=== PATIENT | male | born 1950 | race Caucasian/White ===

== ENCOUNTER 2016-11-14 09:20 | Emergency (ER) | payer OTHER ==
[~2016-11-14] VITALS: Ht 182.9 cm; Wt 87.9 kg
[~2016-11-14 09:20] MED LIST: ASPI81TA28 PO; CLON0.5T3 PO; HYDR-5688 PO; MULT-662 PO; PANT40TA PO
[2016-11-14 09:35] VITALS: TEMP 36.4; Ht 182.9 cm; Wt 87.9 kg
[2016-11-14 10:14] VITALS: O2SAT 99
[2016-11-14 10:21] LABS: HEMATOCRIT 51.2 % (42-52); MEAN CORPUSCULAR HEMOGLOBIN 30.6 pg (25-34); MEAN CORPUSCULAR HGB CONC 34.8 g/dl (32-36); MEAN PLATELET VOLUME 10.8 fL (7.4-10.4); PLATELET COUNT 216 K/uL (130-400); RED BLOOD COUNT 5.82 M/uL (4.7-6.1)
[2016-11-14 10:26] LABS: PARTIAL THROMBOPLASTIN RATIO 1.2; PROTHROMBIN TIME (PATIENT) 10.8 SECONDS (9.0-12.0)
[2016-11-14 10:28] LABS: BUN/CREATININE RATIO 14.6 (10-20); CALCIUM 9.1 mg/dl (8.5-10.1); POTASSIUM 4.3 mmol/L (3.5-5.1)
[2016-11-14 10:32] LABS: CKMB/CK RATIO 1.2 (0-3.0)
--- NOTE | 2016-11-14 10:51 | DIAGNOSTIC IMAGING REPORT ---
CHEST ONE VIEW PORTABLE CLINICAL HISTORY: Chest pain. COMPARISON STUDY: Chest radiograph November 10, 2016. FINDINGS: Lung volumes are normal. No pneumothorax or pleural effusion is present. Cardiomediastinal silhouette is normal. There is no evidence of pulmonary edema. IMPRESSION: No acute cardiopulmonary findings. Electronically signed by: Charlie Obrien M.D. 11/14/2016 10:49 AM
[2016-11-14] MEDS ORDERED: HYDROmorphone INJ 2 MG/ML SYR/VIAL IV STA (11:10)
[2016-11-14] MEDS ORDERED: OPTIRAY 320 IV PRN (11:15)
[2016-11-14 11:58] VITALS: BP 123/76
--- NOTE | 2016-11-14 12:09 | DIAGNOSTIC IMAGING REPORT ---
CT ANGIOGRAM OF THE CHEST CLINICAL HISTORY: Atypical chest pain. Suspected pulmonary embolism. COMPARISON STUDY: 01/30/2016 , dissection study dated 10/10/2016. TECHNIQUE: Following the IV administration of 92 mL of Optiray-320, CT angiogram of the thorax was performed from the thoracic inlet to the lung bases utilizing the pulmonary embolus protocol. Images are reviewed in the axial, sagittal, and coronal planes. IV contrast was administered without complication. MIP imaging was performed. CT DOSE: 562.07 mGycm FINDINGS: There is a mildly enlarged precarinal lymph node measuring 13 mm in size. There are no pathologically enlarged axillary lymph nodes. There is no pathologic hilar lymphadenopathy. Additional There was no evidence of thoracic aortic dilatation. There were no pulmonary artery filling defects to indicate acute pulmonary embolism. No pleural effusions are visualized. There are dependent groundglass opacities, likely atelectatic. There are tiny apical blebs. There is a 3 mm left upper lobe pulmonary nodule as visualized in image #[id number]. This remains unchanged from the prior October 10, 2016 study. IMPRESSION: 1. Stable mild mediastinal lymphadenopathy 2. No CT evidence of acute pulmonary embolism 3. Dependent groundglass pulmonary opacities, likely atelectatic. 4. Stable 3 mm left upper lobe pulmonary nodule Electronically signed by: Hans Morin M.D. 11/14/2016 12:07 PM
[2016-11-14 12:20] VITALS: PULSE 57; O2SAT 96
--- NOTE | 2016-11-14 12:22 | EMERGENCY ROOM VISIT NOTE ---
History Report prepared by Irina: Kamilah Ruano Under the Supervision of: Dr. J Carlos Thompson D.O. First contact with patient: 10:39 Chief Complaint: CHEST PAIN Stated Complaint: CHEST PAIN Nursing Triage Summary: hx dizzy and syncopal episodes x 1 month, seen in er prior to , pt had 2 syncopal episodes today while lying down, L chest pain radiating to L neck and LUE is reproducible, took 1 asa then ems gave him 3 more 81 mg asa, 4mg of zofran and 3 nitro without relief, morphine 4mg given with moderate relief, pt states he has 70% blockage of L carotid artery History of Present Illness The patient is a 66 year old male who presents to the Emergency Room with complaints of constant left-sided chest pain that started this morning. He rates his discomfort as a 9/10 in severity. The patient came to the ED via ambulance. He was given 3 81 mg aspirin en route since he took one baby aspirin this morning. He was also given 4 mg of Zofran and 3 nitro en route without any relief. The patient was also given 4 mg of Morphine Sulfate en route with moderate relief. He states that he woke up this morning at 0530 and drank coffee. He states that the longer he was up, the worse he felt. He then began to feel dizzy to the point of being unable to walk straight. He then developed the chest pain and it radiated into the left side of his neck and the back of his head. He decided to lie down and then experienced syncope. He is unsure of how long the syncope lasted but he estimated that it lasted about two minutes. He tried to get up afterward and experienced similar symptoms so he laid back down. He experienced another episode of syncope and then called the ambulance. He adds that the dizziness has been ongoing for the last month. Additionally, the patient states that he has 3 stents in his heart from an RI in 2007. He also states that his left carotid is 70% blocked and it hasn't been checked for almost 8 months now. Source of History: patient Onset: this morning Position: chest (left) Timing: constant Associated Symptoms: + LOC (2 episodes of syncope), + headache (back of head ), + neck pain (left sided) Note: dizziness Review of Systems See HPI for pertinent positives & negatives. A total of 10 systems reviewed and were otherwise negative. Past Medical & Surgical Medical Problems: (1) Abdominal aneurysm (2) Abscess (3) Acute bronchitis (4) CALCULUS OF KIDNEY (5) Clostridium difficile colitis (6) Colostomy (7) Coronary artery disease (8) CVA (cerebral vascular accident) (9) Diverticulitis of colon (10) Diverticulosis of sigmoid colon (11) Enteritis (12) GI bleed (13) Kidney stone (14) Myocardial infarction (15) Partial resection of colon (16) Pneumonia (17) Right arm weakness (18) sigmoid resection (19) Stoma (20) Urinary retention Surgical Problems: (1) History of appendectomy (2) History of colectomy Family History Hypertension Social History Smoking Status: Current Every Day Smoker Alcohol Use: none Drug Use: none Marital Status: Housing Status: lives with significant other Occupation Status: retired Current/Historical Medications Scheduled Aspirin (Aspirin Ec), 81 MG PO DAILY Multiple Vitamins W/ Minerals (Mens 50+ Advanced), 1 CAP PO DAILY Scheduled PRN Clonazepam (Klonopin), 0.5 MG PO DAILY PRN for RESTLESS LEGS Hydrocodone/Acetaminophen 5MG/325MG ([place] 5MG/325MG), 1 TAB PO Q6 PRN for Pain Allergies Coded Allergies: Penicillins (Verified Allergy, Severe, SEVERE SWELLING, anaphylaxis, ) Metronidazole (Verified Allergy, Intermediate, swelling, 11/14/16) Physical Exam Vital Signs Date Time Temp Pulse Resp B/P Pulse Ox O2 Delivery O2 Flow Rate FiO2 11/14/16 12:20 57 19 96 11/14/16 11:58 123/76 11/14/16 11:50 52 18 97 11/14/16 11:29 125/77 11/14/16 11:20 54 15 98 11/14/16 10:58 124/77 11/14/16 10:50 59 6 98 11/14/16 10:29 110/62 11/14/16 10:20 61 12 98 11/14/16 10:14 99 Nasal Cannula 2.0 11/14/16 10:07 60 118/71 99 11/14/16 10:03 118/71 11/14/16 10:01 145/130 11/14/16 09:50 65 21 93 11/14/16 09:44 65 11/14/16 09:35 36.4 64 18 107/67 95 Room Air 11/14/16 09:35 95 Room Air 11/14/16 09:28 92 Room Air 11/14/16 09:27 107/67 Physical Exam CONSTITUTIONAL/VITAL SIGNS: Reviewed / noted above. GENERAL: Non-toxic in appearance. INTEGUMENTARY: Warm, dry, and [place]. HEAD: Normocephalic. EYES: without scleral icterus or trauma. ENT/OROPHARYNX: clear and moist. LYMPHADENOPATHY/NECK: Is supple without lymphadenopathy or meningismus. RESPIRATORY: Lungs clear and equal. CARDIOVASCULAR: Regular rate and rhythm. GI/ABDOMEN: Soft and nontender. No organomegaly or pulsatile mass. No rebound or guarding. Normal bowel sounds. EXTREMITIES: Warm and well perfused. BACK: No CVA tenderness. NEUROLOGICAL: Intact without focal deficits. PSYCHIATRIC: normal affect. MUSCULOSKELETAL: Normally developed with good muscle tone. Medical Decision & Procedures ER Provider Diagnostic Interpretation: X ray results and stated below per my interpretation and radiologist interpretation. Other radiology results and stated below per my review and radiologist interpretation: CHEST ONE VIEW PORTABLE CLINICAL HISTORY: Chest pain. COMPARISON STUDY: Chest radiograph November 10, 2016. FINDINGS: Lung volumes are normal. No pneumothorax or pleural effusion is present. Cardiomediastinal silhouette is normal. There is no evidence of pulmonary edema. IMPRESSION: No acute cardiopulmonary findings. Electronically signed by: Charlie Obrien M.D. 11/14/2016 10:[address] ANGIOGRAM OF THE CHEST CLINICAL HISTORY: Atypical chest pain. Suspected pulmonary embolism. COMPARISON STUDY: 01/30/2016 , dissection study dated 10/10/2016. TECHNIQUE: Following the IV administration of 92 mL of Optiray-320, CT angiogram of the thorax was performed from the thoracic inlet to the lung bases utilizing the pulmonary embolus protocol. Images are reviewed in the axial, sagittal, and coronal planes. IV contrast was administered without complication. MIP imaging was performed. CT DOSE: 562.07 mGycm FINDINGS: There is a mildly enlarged precarinal lymph node measuring 13 mm in size. There are no pathologically enlarged axillary lymph nodes. There is no pathologic hilar lymphadenopathy. Additional There was no evidence of thoracic aortic dilatation. There were no pulmonary artery filling defects to indicate acute pulmonary embolism. No pleural effusions are visualized. There are dependent groundglass opacities, likely atelectatic. There are tiny apical blebs. There is a 3 mm left upper lobe pulmonary nodule as visualized in image #[id number]. This remains unchanged from the prior October 10, 2016 study. IMPRESSION: 1. Stable mild mediastinal lymphadenopathy 2. No CT evidence of acute pulmonary embolism 3. Dependent groundglass pulmonary opacities, likely atelectatic. 4. Stable 3 mm left upper lobe pulmonary nodule Electronically signed by: Hans Morin M.D. 11/14/2016 12:07 PM Laboratory Results 11/14/16 08:51 11/14/16 08:51 Test 11/14/16 08:51 11/14/16 10:14 Red Blood Count 5.82 M/uL (4.7-6.1) Mean Corpuscular Volume 88.0 fL (80-100) Mean Corpuscular Hemoglobin 30.6 pg (25-34) Mean Corpuscular Hemoglobin Concent 34.8 g/dl (32-36) RDW Standard Deviation 42.2 fL (36.4-46.3) RDW Coefficient of Variation 13.1 % (11.5-14.5) Mean Platelet Volume 10.8 fL (7.4-10.4) Prothrombin Time 10.8 SECONDS (9.0-12.0) Prothromb Time International Ratio 1.0 (0.9-1.1) Activated Partial Thromboplast Time 31.7 SECONDS (21.0-31.0) Partial Thromboplastin Ratio 1.2 D-Dimer 850 ug/L FEU (0-500) Anion Gap 8.0 mmol/L (3-11) Est Creatinine Clear Calc Drug Dose 79.8 ml/min Estimated GFR () 90.5 Estimated GFR (Non- 78.1 BUN/Creatinine Ratio 14.6 (10-20) Calcium Level 9.1 mg/dl (8.5-10.1) Total Bilirubin 0.3 mg/dl (0.2-1) Aspartate Amino Transf (AST/SGOT) 18 U/L (15-37) Alanine Aminotransferase (ALT/SGPT) 33 U/L (12-78) Alkaline Phosphatase 84 U/L (45-117) Total Creatine Kinase 43 U/L (39-308) Creatine Kinase MB 0.5 ng/ml (0.5-3.6) Creatine Kinase MB Ratio 1.2 (0-3.0) Total Protein 7.7 gm/dl (6.4-8.2) Albumin 3.8 gm/dl (3.4-5.0) Globulin 3.9 gm/dl (2.5-4.0) Albumin/Globulin Ratio 1.0 (0.9-2) Bedside Troponin I 0.000 ng/ml (0-0.045) Laboratory results as stated above per my review. Medications Administered Medications (Trade) Dose Ordered Sig/Alan Route Start Time Stop Time Status Last Admin Dose Admin Hydromorphone HCl (Dilaudid Inj) 2 mg NOW STAT IV 11/14/16 11:10 11/14/16 11:12 DC 11/14/16 11:28 2 MG ECG Indication: chest pain Rate (beats per minute): 71 Rhythm: normal sinus Findings: no acute ischemic change, no ectopy ED Course 1055: Previous medical records were reviewed. The patient was evaluated in room A12. A complete history and physical examination was performed. 1110: Ordered Dilaudid 2 mg IV 1223: On reevaluation, the patient is doing well. I discussed the results and findings with the patient. He verbalized agreement of the treatment plan. He was discharged home. Medical Decision Differential includes acute myocardial infarction, acute coronary syndrome, myocarditis, pericarditis, pericardial effusions /tamponad, esophageal perforation, thoracic aortic dissection, pulmonary embolism, pneumonia, pneumothorax, pancreatitis, shingles, acute cholecystitis, perforated abdominal viscus. This is a 66-year-old male who presents to the ED with a chief complaint of chest pain. Further details listed above. The patient's vital signs are normal. His physical exam was normal. He is afebrile. CBC is normal. Complete metabolic panel was normal. Troponin is negative. D-dimer was elevated. CT scan of the chest did not show acute disease. A chest x-ray was negative for acute disease. EKG shows a normal sinus rhythm without ischemic changes. The patient was told the results of the test. He is felt to be stable for discharge. He was given 2 mg of IV Dilaudid for pain. Impression Primary Impression: Non-cardiac chest pain Scribe Attestation The scribe's documentation has been prepared under my direction and personally reviewed by me in its entirety. I confirm that the note above accurately reflects all work, treatment, procedures, and medical decision making performed by me. Departure Information Dispostion Home / Self-Care Referrals Mariah Lewis C.R.N.P (PCP) Forms HOME CARE DOCUMENTATION FORM, IMPORTANT VISIT INFORMATION Patient Instructions A Signature Page, Chest Pain - [facility], [facility] Additional Instructions Follow-up with your doctor for further care and evaluation in 1-2 days. Return to the emergency department for worsening or new symptoms or any concerns. You have been examined and treated today on an emergency basis only. This is not a substitute for, or an effort to provide, complete comprehensive medical care. It is impossible to recognize and treat all injuries or illnesses in a single emergency department visit. It is therefore important that you follow up closely with your doctor. Call as soon as possible for an appointment.
[2016-12-16] MEDS ORDERED: NTRSLP4 SL (10:16)
[2016-12-16] MEDS ORDERED: ULT50X PO (10:16)
[2016-12-16] MEDS ORDERED: OMEP40CA41 PO (10:16)
[2016-12-16] MEDS ORDERED: LSN25 PO (10:16)
[2016-12-16] MEDS ORDERED: PLV75 PO (10:16)
[2016-12-16] MEDS ORDERED: ERGO500037 PO (10:16)
[2016-12-16] MEDS ORDERED: LDDP5 TD (10:16)
[2016-12-16] MEDS ORDERED: SM350 PO (10:16)
[2016-12-16] MEDS ORDERED: ROSU40TA PO (10:16)
[2017-05-26] MEDS ORDERED: RXC5 PO (11:37)
== END 2016-11-14 12:34 | disposition home or self-care (01) ==
LOC: EDBD 09:20 → C.EDA 09:21
DX: R07.89 Other chest pain (principal); R51 Headache; M54.2 Cervicalgia; R55 Syncope and collapse; I25.10 Atherosclerotic heart disease of native coronary artery without angina pectoris; I25.2 Old myocardial infarction; Z86.73 Personal history of transient ischemic attack (TIA), and cerebral infarction without residual deficits; F17.210 Nicotine dependence, cigarettes, uncomplicated; Z79.82 Long term (current) use of aspirin

== ENCOUNTER 2016-11-21 14:31 | Emergency (ER) | payer OTHER ==
[~2016-11-21] VITALS: Ht 182.9 cm; Wt 86.5 kg
[~2016-11-21 14:31] MED LIST changes: -ERGO500037 PO; -FLUO10CA48 PO; -GABA-112 PO; -LDDP5 TD; -LSN25 PO; -NTRSLP4 SL; -OMEP40CA41 PO; -OXYC1TAB3 PO; -PLV75 PO; -PRED20TA PO; -ROSU40TA PO; -RXC5 PO; -SM350 PO; -ULT50X PO
[2016-11-21 14:34] VITALS: TEMP 36.8; Ht 182.9 cm; Wt 86.5 kg
[2016-11-21] MEDS ORDERED: SODIUM CHLORIDE 0.9% 1000ML 1,000 ML IV SCH (14:39)
[2016-11-21 14:52] VITALS: O2SAT 97
[2016-11-21 14:54] LABS: BASO % 0.4 %; BASO ABS # 0.04 K/uL (0-0.2); COMPLETE YES; EOS % 1.4 %; HEMATOCRIT 47.3 % (42-52); IG% 0.4 %; LYMPH % 16.8 %; LYMPH ABS # 1.92 K/uL (1.2-3.4); MEAN CELL VOLUME 85.5 fL (80-100); MEAN CORPUSCULAR HEMOGLOBIN 29.5 pg (25-34); MEAN CORPUSCULAR HGB CONC 34.5 g/dl (32-36); MEAN PLATELET VOLUME 10.5 fL (7.4-10.4); MONO % 5.5 %; NEUT % 75.5 %; PLATELET COUNT 191 K/uL (130-400); RED BLOOD COUNT 5.53 M/uL (4.7-6.1)
--- NOTE | 2016-11-21 14:56 | DIAGNOSTIC IMAGING REPORT ---
CT OF THE HEAD WITHOUT CONTRAST CLINICAL HISTORY: Stroke symptoms. Left-sided weakness. COMPARISON STUDY: Head CT November 10, 2016. CT DOSE: 788.63 mGycm TECHNIQUE: Helical axial images of the head were obtained without IV contrast. Automated exposure control was utilized for the study. FINDINGS: No acute intracranial hemorrhage, midline shift or mass effect is present. Brain volume is normal. Ventricular system is normal. The basilar cisterns are patent. There are no extra-axial collections. [place]-white differentiation is maintained. There are no findings to suggest acute dural sinus thrombosis or acute territorial infarct. There is no calvarial fracture. Visualized portions of the sinuses and mastoid air cells are clear. IMPRESSION: No acute intracranial findings. Electronically signed by: Charlie Obrien M.D. 11/21/2016 2:54 PM Dictated Date/Time: 11/21/2016 2:52 PM
--- NOTE | 2016-11-21 15:00 | EMERGENCY ROOM VISIT NOTE ---
History Report prepared by Irina: Martha Palmer Under the Supervision of: Dr. Brando Vieyra M.D. First contact with patient: 14:35 Chief Complaint: STROKE SYMPTOMS Stated Complaint: STROKE SYMPTOMS History of Present Illness The patient is a 66 year old male who presents to the Emergency Room with complaints of a sudden onset of shooting pain to his posterior left neck, radiating down his left arm, while getting an ultrasound just prior to arrival ( 1409). Currently, he rates his discomfort as an 8/10 which increases with attempts of lifting his left arm. 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 During the procedure, patient was instructed to turn his head to the left side when he suddenly contracted a pain to his left neck, radiating down his left arm. After morena the pain, patient developed numbness/weakness to his left arm and leg as he was only able to lift them a few inches off of the bed, and he was unable to grasp with his left hand. Patient does note that he suffered a syncopal episode on November 06, and since that time he has been experiencing intermittent dizzy spells, but he denies neck pain or unilateral weakness until the time of onset today. Patient does note slight blurriness to his left eye, but he denies headache, facial droop, slurred speech, or difficulty swallowing. He also denies fevers, chills, chest pain, shortness of breath, abdominal pain, nausea, vomiting, or diarrhea. Source of History: patient Onset: 1409 Position: neck (left) Symptom Intensity: 8/10 Quality: other (shooting) Timing: other (sudden onset) Modifying Factors (Worsening): other (turning neck to left, raising left arm ) Associated Symptoms: + weakness (left arm and left leg), No SOB, No abdominal pain, No chest pain, No chills, No diarrhea, No fevers, No headache, No nausea, No vomiting Note: Patient has slight blurriness to his left eye but denies facial droop, slurred speech or difficulty swallowing. Review of Systems All systems have been listed, reviewed, and are negative other than those previously mentioned. Please see Additional Medical History Sheet. Past Medical & Surgical Medical Problems: (1) Abdominal aneurysm (2) Abscess (3) Acute bronchitis (4) CALCULUS OF KIDNEY (5) Clostridium difficile colitis (6) Colostomy (7) Coronary artery disease (8) CVA (cerebral vascular accident) (9) Diverticulitis of colon (10) Diverticulosis of sigmoid colon (11) Enteritis (12) GI bleed (13) Kidney stone (14) Myocardial infarction (15) Partial resection of colon (16) Pneumonia (17) Right arm weakness (18) sigmoid resection (19) Stoma (20) Urinary retention Surgical Problems: (1) History of appendectomy (2) History of colectomy Family History Hypertension Social History Smoking Status: Current Every Day Smoker Alcohol Use: none Drug Use: none Marital Status: Housing Status: lives with significant other Occupation Status: retired Current/Historical Medications Scheduled Aspirin (Aspirin Ec), 81 MG PO DAILY Fluoxetine (Prozac), 10 MG PO HS Multiple Vitamins W/ Minerals (Mens 50+ Advanced), 1 CAP PO DAILY Scheduled PRN Clonazepam (Klonopin), 0.5 MG PO DAILY PRN for RESTLESS LEGS Hydrocodone/Acetaminophen 5MG/325MG ([place] 5MG/325MG), 1 TAB PO Q6 PRN for Pain Allergies Coded Allergies: Penicillins (Verified Allergy, Severe, SEVERE SWELLING, anaphylaxis, ) Metronidazole (Verified Allergy, Intermediate, swelling, 11/21/16) Physical Exam Vital Signs Date Time Temp Pulse Resp B/P Pulse Ox O2 Delivery O2 Flow Rate FiO2 11/21/16 17:47 62 16 124/83 95 11/21/16 17:04 64 16 154/82 96 Room Air 11/21/16 16:43 66 16 131/84 96 Room Air 11/21/16 16:11 65 18 120/76 96 Room Air 11/21/16 15:46 68 16 137/78 97 Room Air 11/21/16 14:53 69 16 135/84 98 Room Air 11/21/16 14:52 97 Room Air 11/21/16 14:35 78 11/21/16 14:34 36.8 71 18 142/83 98 Room Air Physical Exam GENERAL: Patient awake, alert, oriented x 3. He appears to be in moderate distress. Patient follows commands. Patient does not appear toxic. Patient is adequately hydrated and well-nourished. SKIN: No erythema, pallor, cyanosis or rash HEENT: Normal head, pupils equal, reactive to light and accommodation. Neck: Without adenopathy, no neck vein distention. Tenderness over the left carotid. No carotid bruits were appreciated. LUNGS: Clear to auscultation. No wheezes, no rales, no rhonchi. HEART: No murmurs. No gallops. No rubs ABDOMEN: Well healed midline abdominal scar. Abdomen is nontender. No masses, no rebound, no hepatomegaly or splenomegaly. EXTREMITIES: No signs of trauma. No pedal or pretibial edema. No calf or thigh tenderness. No signs of infection or trauma. NEUROLOGIC: Cranial nerves II-XII within normal limits. Weakness of the left arm and left leg. NIH stroke scale was initially 3. Then improved to a 1 after two hours. Medical Decision & Procedures ER Provider Diagnostic Interpretation: CT results are interpretations by the radiologist and per my review. CT OF THE HEAD WITHOUT CONTRAST CLINICAL HISTORY: Stroke symptoms. Left-sided weakness. COMPARISON STUDY: Head CT November 10, 2016. CT DOSE: 788.63 mGycm TECHNIQUE: Helical axial images of the head were obtained without IV contrast. Automated exposure control was utilized for the study. FINDINGS: No acute intracranial hemorrhage, midline shift or mass effect is present. Brain volume is normal. Ventricular system is normal. The basilar cisterns are patent. There are no extra-axial collections. [place]-white differentiation is maintained. There are no findings to suggest acute dural sinus thrombosis or acute territorial infarct. There is no calvarial fracture. Visualized portions of the sinuses and mastoid air cells are clear. IMPRESSION: No acute intracranial findings. Electronically signed by: Charlie Obrien M.D. 11/21/2016 2:54 PM Dictated Date/Time: 11/21/2016 2:52 PM Laboratory Results 11/21/16 14:35 Red Blood Count 5.53, Mean Corpuscular Volume 85.5, Mean Corpuscular Hemoglobin 29.5, Mean Corpuscular Hemoglobin Concent 34.5, Mean Platelet Volume 10.5, Neutrophils (%) (Auto) 75.5, Lymphocytes (%) (Auto) 16.8, Monocytes (%) (Auto) 5.5, Eosinophils (%) (Auto) 1.4, Basophils (%) (Auto) 0.4, Neutrophils # (Auto) 8.61, Lymphocytes # (Auto) 1.92, Monocytes # (Auto) 0.63, Eosinophils # (Auto) 0.16, Basophils # (Auto) 0.04 11/21/16 14:35 Test 11/21/16 14:35 11/21/16 14:54 11/21/16 16:25 White Blood Count 11.40 K/uL (4.8-10.8) Red Blood Count 5.53 M/uL (4.7-6.1) Hemoglobin 16.3 g/dL (14.0-18.0) Hematocrit 47.3 % (42-52) Mean Corpuscular Volume 85.5 fL (80-100) Mean Corpuscular Hemoglobin 29.5 pg (25-34) Mean Corpuscular Hemoglobin Concent 34.5 g/dl (32-36) Platelet Count 191 K/uL (130-400) Mean Platelet Volume 10.5 fL (7.4-10.4) Neutrophils (%) (Auto) 75.5 % Lymphocytes (%) (Auto) 16.8 % Monocytes (%) (Auto) 5.5 % Eosinophils (%) (Auto) 1.4 % Basophils (%) (Auto) 0.4 % Neutrophils # (Auto) 8.61 K/uL (1.4-6.5) Lymphocytes # (Auto) 1.92 K/uL (1.2-3.4) Monocytes # (Auto) 0.63 K/uL (0.11-0.59) Eosinophils # (Auto) 0.16 K/uL (0-0.5) Basophils # (Auto) 0.04 K/uL (0-0.2) RDW Standard Deviation 40.0 fL (36.4-46.3) RDW Coefficient of Variation 12.8 % (11.5-14.5) Immature Granulocyte % (Auto) 0.4 % Immature Granulocyte # (Auto) 0.04 K/uL (0.00-0.02) Prothrombin Time 10.9 SECONDS (9.0-12.0) Prothromb Time International Ratio 1.0 (0.9-1.1) Activated Partial Thromboplast Time 32.0 SECONDS (21.0-31.0) Partial Thromboplastin Ratio 1.2 Anion Gap 11.0 mmol/L (3-11) Est Creatinine Clear Calc Drug Dose 89.6 ml/min Estimated GFR () 103.3 Estimated GFR (Non- 89.1 BUN/Creatinine Ratio 17.1 (10-20) Calcium Level 9.0 mg/dl (8.5-10.1) Total Creatine Kinase 66 U/L (39-308) Creatine Kinase MB < 0.5 ng/ml (0.5-3.6) Creatine Kinase MB Ratio (0-3.0) Troponin I < 0.015 ng/ml (0-0.045) Bedside Glucose 91 mg/dl (70-99) Urine Opiates Screen NEG (NEG) Urine Methadone, Qualitative NEG (NEG) Urine Barbiturates NEG (NEG) Urine Phencyclidine (PCP) Level NEG (NEG) Ur Amphetamine/Methamphetamine NEG (NEG) MDMA (Ecstasy) Screen NEG (NEG) Urine Benzodiazepines Screen NEG (NEG) Urine Cocaine Metabolite NEG (NEG) Urine Marijuana (THC) NEG (NEG) Laboratory results as stated above per my review. Medications Administered Medications (Trade) Dose Ordered Sig/Alan Route Start Time Stop Time Status Last Admin Dose Admin Sodium Chloride (Nss 1000ml) 1,000 ml @ 50 mls/hr Q20H IV 11/21/16 14:39 12/21/16 14:38 11/21/16 15:10 50 MLS/HR Hydromorphone HCl (Dilaudid Inj) 1 mg Q1HWA PRN IV 11/21/16 15:30 12/05/16 15:29 11/21/16 17:02 1 MG Ondansetron HCl (Zofran Inj) 4 mg Q4H PRN IV 11/21/16 15:30 12/21/16 15:29 11/21/16 15:43 4 MG Ketorolac Tromethamine (Toradol Inj) 30 mg NOW STAT IV 11/21/16 17:33 11/21/16 17:34 DC 11/21/16 17:36 30 MG ECG Indication: weakness Rate (beats per minute): 71 Rhythm: normal sinus Findings: no acute ischemic change, no ectopy ED Course 1432: Past medical records reviewed. The patient was evaluated in room A1. A complete history and physical examination was performed. 1439: NSS 1,000 ml @ 50 mls/hr IV was ordered. 1500: I spoke with Dr. Obrien of radiology about the patient's imaging studies. No significant abnormalities were seen on the US, or preliminarily on CT. 1530: Upon reevaluation, Patient was having increased pain. Zofran 4 mg IV and Dilaudid 1 mg IV were ordered. 1700: Upon reevaluation, the patient was feeling improved, however he still had some pain and dizziness. I updated him on the results of his radiology reports and lab tests. He will be taken through an ambulatory trial. 1728: Patient was reevaluated at this time. He was taken through an ambulatory trial and was able to walk on his own. Discharge instructions were discussed with him at this time. He verbalized his understanding and agreement with the treatment plan, and he is now ready for disposition. 1735: Patient was requesting additional pain medication before departure. Toradol 30 mg IV was ordered. Medical Decision Nurses notes reviewed. Medical history sheet reviewed. Differential diagnosis includes but is not limited to: CVA, TIA, and carotid dissection. The patient arrived he was sent onset of left neck pain associated with left arm and left leg weakness. The patient states he's had similar episodes in the past. The patient had no difficulty talking or hearing. The patient had no change in his vision. The patient was in ultrasound when this occurred. That test was completed. Multiple other tests were obtained here in the ED. Please see above. The ultrasound does not reveal significant occlusion or dissection of the carotid. He has no bruits. CT reveals no signs of acute stroke. Multiple other labs were reviewed. EKG does not reveal an arrhythmia. Patient was given pain medication. He was observed and reevaluated multiple times and his symptoms resolved without medication. This is similar to his past experience. The patient's neck pain and weakness were on the same side which seems unusual. The patient may have some cervical radiculopathy causing his symptoms. Prior to discharge the patient was able to walk around the ED without difficulty. His symptoms had almost completely resolved. The patient be encouraged to follow-up with his family physician and neurology. Consults Time Called: [id number] Consulting Physician: Dr. Obrien - radiology Returned Call: 1500 Discussed the patient's radiology studies. No significant abnormalities were seen on the US, or preliminarily on CT. Impression Primary Impression: Transient weakness of left leg Scribe Attestation The scribe's documentation has been prepared under my direction and personally reviewed by me in its entirety. I confirm that the note above accurately reflects all work, treatment, procedures, and medical decision making performed by me. Departure Information Dispostion Home / Self-Care Referrals Mariah Lewis C.R.N.P (PCP) Forms HOME CARE DOCUMENTATION FORM, IMPORTANT VISIT INFORMATION Patient Instructions A Signature Page, My [facility] Additional Instructions Follow-up with your family physician this week. 600 mg ibuprofen every 6 hours as needed for neck pain. Continue all of your current medications as prescribed.
[2016-11-21] MEDS ORDERED: FLUO10CA48 PO (15:05)
[2016-11-21 15:07] LABS: PARTIAL THROMBOPLASTIN RATIO 1.2; PROTHROMBIN TIME (PATIENT) 10.9 SECONDS (9.0-12.0)
[2016-11-21 15:16] LABS: BLOOD UREA NITROGEN 15 mg/dl (7-18); BUN/CREATININE RATIO 17.1 (10-20); CARBON DIOXIDE 24 mmol/L (21-32); CHLORIDE 106 mmol/L (98-107); CREATININE 0.89 mg/dl (0.60-1.40); GLUCOSE 81 mg/dl (70-99); POTASSIUM 3.9 mmol/L (3.5-5.1); SODIUM 141 mmol/L (136-145)
[2016-11-21] MEDS ORDERED: ONDANSETRON INJ 2 MG/ML 2 ML VIAL IV PRN (15:30)
[2016-11-21] MEDS: HYDROmorphone INJ 1 MG/ML SYR IV PRN ×2 (15:43→17:02)
[2016-11-21 16:58] LABS: BENZODIAZEPINE, URINE NEG (NEG); COCAINE,URINE NEG (NEG); PHENCYCLIDINE, URINE NEG (NEG)
[2016-11-21] MEDS ORDERED: KETOROLAC TROMETHAMINE 30 MG/ML VIAL IV STA (17:33)
[2016-11-21 17:47] VITALS: BP 124/83; PULSE 62; O2SAT 95
[2016-12-16] MEDS ORDERED: LDDP5 TD (10:16)
[2016-12-16] MEDS ORDERED: PLV75 PO (10:16)
[2016-12-16] MEDS ORDERED: SM350 PO (10:16)
[2016-12-16] MEDS ORDERED: LSN25 PO (10:16)
[2016-12-16] MEDS ORDERED: OMEP40CA41 PO (10:16)
[2016-12-16] MEDS ORDERED: NTRSLP4 SL (10:16)
[2016-12-16] MEDS ORDERED: ROSU40TA PO (10:16)
[2016-12-16] MEDS ORDERED: ULT50X PO (10:16)
[2016-12-16] MEDS ORDERED: ERGO500037 PO (10:16)
[2017-05-26] MEDS ORDERED: RXC5 PO (11:37)
== END 2016-11-21 17:42 | disposition home or self-care (01) ==
LOC: C.EDB 14:31 → C.ED 17:42
DX: R29.898 Other symptoms and signs involving the musculoskeletal system (principal); I25.10 Atherosclerotic heart disease of native coronary artery without angina pectoris; F17.200 Nicotine dependence, unspecified, uncomplicated; I25.2 Old myocardial infarction; Z86.73 Personal history of transient ischemic attack (TIA), and cerebral infarction without residual deficits; Z79.82 Long term (current) use of aspirin; R42 Dizziness and giddiness

== ENCOUNTER → 2016-11-21 | Outpatient (CLI) | payer OTHER ==
[~2016-11-21] MED LIST changes: +ERGO500037 PO; +FLUO10CA48 PO; +GABA-112 PO; +LDDP5 TD; +LSN25 PO; +NTRSLP4 SL; +OMEP40CA41 PO; +OXYC1TAB3 PO; +PLV75 PO; +PRED20TA PO; +ROSU40TA PO; +RXC5 PO; +SM350 PO; +ULT50X PO
--- NOTE | 2016-11-21 14:47 | DIAGNOSTIC IMAGING REPORT ---
ULTRASOUND OF THE CAROTID ARTERIES CLINICAL HISTORY: Dizziness. COMPARISON STUDY: 01/30/2016 TECHNIQUE: Real-time, grayscale, and color Doppler sonography of the carotid arteries was performed. Imaging reviewed in the transverse and longitudinal planes. NASCET criteria was utilized for stenosis calcification. FINDINGS: There is mild atherosclerotic plaque present . The peak systolic velocity within the right internal carotid artery is 68 cm/sec. The systolic velocity ratio of right internal to common carotid artery is 0.9. The peak systolic velocity within the left internal carotid artery is 104 cm/sec. The systolic velocity ratio left internal to common carotid artery is 1.4. Antegrade flow is seen in the vertebral arteries. The external carotid arteries are patent. Blood pressure in the right arm measured 120 mm/Hg. Blood pressure in the left arm measured 129 mm/Hg. IMPRESSION: No evidence of hemodynamically significant carotid stenosis. Electronically signed by: Hans Morin M.D. 11/21/2016 2:46 PM Dictated Date/Time: 11/21/2016 2:44 PM
== END | disposition home or self-care (01) ==
LOC: C.ULTR 13:30
PROVIDERS: ATTEND Family Medicine
DX: R42 Dizziness and giddiness (principal)

== ENCOUNTER → 2016-12-05 | Outpatient (CLI) | payer OTHER ==
[~2016-12-05] MED LIST changes: +ERGO500037 PO; +FLUO10CA48 PO; +GABA-112 PO; +LDDP5 TD; +LSN25 PO; +NTRSLP4 SL; +OMEP40CA41 PO; +OXYC1TAB3 PO; +PLV75 PO; +PRED20TA PO; +ROSU40TA PO; +RXC5 PO; +SM350 PO; +ULT50X PO
[2016-12-05 13:14] LABS: ALT/SGPT 19 U/L (12-78); AST/SGOT 14 U/L (15-37); BLOOD UREA NITROGEN 11 mg/dl (7-18); BUN/CREATININE RATIO 10.7 (10-20); CALCIUM 9.9 mg/dl (8.5-10.1); CARBON DIOXIDE 27 mmol/L (21-32); CHLORIDE 104 mmol/L (98-107); CREATININE 0.99 mg/dl (0.60-1.40); GLUCOSE 90 mg/dl (70-99); MAGNESIUM 2.2 mg/dl (1.8-2.4); POTASSIUM 4.6 mmol/L (3.5-5.1); SODIUM 139 mmol/L (136-145)
[2016-12-05 13:24] LABS: ALKALINE PHOSPHATASE 100 U/L (45-117)
--- NOTE | 2016-12-09 12:44 | CODING QUERY MEDICAL NECESSITY ---
SUPPORTING DIAGNOSIS NEEDED Dr. Lewis, A supporting diagnosis is required for the test/procedure performed on this patient in order for us to be reimbursed by the patient's insurance. Please provide a supporting diagnosis for the following test/procedure listed below next to the test name along with your signature. *If there is no additional diagnosis for this patient that would support the following test/procedure please document that below next to the test/procedure. Test(s)/Procedure(s) that require a supporting diagnosis: * ([id number]) VITAMIN D ASSAY DIAGNOSIS: DATE OF SERVICE: 12/05/16 Provider Signature: Date: Thank you Wilmar Reese [facility] Information Management Once completed, please kindly fax back to [phone] For questions please call [phone]
== END | disposition home or self-care (01) ==
LOC: C.LABPVFM 10:33
PROVIDERS: ATTEND Nurse Practitioner
DX: R42 Dizziness and giddiness (principal); R53.83 Other fatigue; R51 Headache; E55.9 Vitamin D deficiency, unspecified

== ENCOUNTER 2016-12-09 11:01 | Inpatient (IN) | payer OTHER ==
[~2016-12-09] VITALS: Ht 182.9 cm; Wt 84.8 kg
[~2016-12-09 11:01] MED LIST changes: -ERGO500037 PO; -GABA-112 PO; -LDDP5 TD; -LSN25 PO; -NTRSLP4 SL; -OMEP40CA41 PO; -OXYC1TAB3 PO; -PLV75 PO; -PRED20TA PO; -ROSU40TA PO; -RXC5 PO; -SM350 PO; -ULT50X PO
[2016-12-09] MEDS ORDERED: ERGO500037 PO (11:26)
[2016-12-09 11:43] LABS: BASO % 0.3 %; BASO ABS # 0.02 K/uL (0-0.2); COMPLETE YES; HEMATOCRIT 47.5 % (42-52); IG% 0.3 %; LYMPH % 20.5 %; LYMPH ABS # 1.53 K/uL (1.2-3.4); MEAN CELL VOLUME 87.3 fL (80-100); MEAN CORPUSCULAR HGB CONC 34.3 g/dl (32-36); MEAN PLATELET VOLUME 10.5 fL (7.4-10.4); MONO % 6.7 %; NEUT % 70.2 %; PLATELET COUNT 174 K/uL (130-400); RED BLOOD COUNT 5.44 M/uL (4.7-6.1); WHITE BLOOD COUNT 7.47 K/uL (4.8-10.8)
[2016-12-09] MEDS: NITROGLYCERIN 0.4 MG SL PER TAB CHARGE SL PRN ×2 (11:46→12:11)
[2016-12-09 11:52] LABS: BLOOD UREA NITROGEN 15 mg/dl (7-18); BUN/CREATININE RATIO 15.5 (10-20); CARBON DIOXIDE 26 mmol/L (21-32); CHLORIDE 105 mmol/L (98-107); CREATININE 0.96 mg/dl (0.60-1.40); GLUCOSE 87 mg/dl (70-99); POTASSIUM 4.3 mmol/L (3.5-5.1); SODIUM 138 mmol/L (136-145)
[2016-12-09 11:57] LABS: CKMB/CK RATIO 1.3 (0-3.0)
--- NOTE | 2016-12-09 12:01 | DIAGNOSTIC IMAGING REPORT ---
CHEST ONE VIEW PORTABLE CLINICAL HISTORY: Chest pain. COMPARISON STUDY: Chest radiograph and chest CT November 14, 2016. FINDINGS: Lung volumes are normal. There is no pneumothorax or pleural effusion. Cardiomediastinal silhouette is stable. No consolidation is identified. Mild interstitial prominence is similar to prior exam. There is no evidence for overt pulmonary edema. IMPRESSION: No acute cardiopulmonary findings. Electronically signed by: Charlie Obrien M.D. 12/09/2016 12:00 PM Dictated Date/Time: 12/09/2016 11:59 AM
[2016-12-09] MEDS ORDERED: MoRPHine SULFATE 4 MG/ML 1 ML CARP\\VIAL IV STA (12:19)
[2016-12-09] MEDS ORDERED: PERFLUTREN LIPID MICROSPHERE (DEFINITY) IV ONE (13:25)
[2016-12-09] MEDS ORDERED: MoRPHine SULFATE 2 MG/ML CARP IV PRN (13:45)
[2016-12-09] MEDS ORDERED: POLYETHYLENE (MIRALAX) 17 GM PACK PO PRN (13:45)
[2016-12-09] MEDS ORDERED: MoRPHine SULFATE 4 MG/ML 1 ML CARP\\VIAL IV PRN (13:45)
[2016-12-09] MEDS ORDERED: MAGNESIUM HYDROXIDE SUSP 30 ML UDC PO PRN (13:45)
[2016-12-09] MEDS ORDERED: NITROGLYCERIN 0.4 MG SL PER TAB CHARGE SL PRN (13:45)
[2016-12-09] MEDS ORDERED: AMINOPHYLLINE 25 MG/ML 20ML VIAL IV ONE (13:47)
[2016-12-09 13:58] VITALS: O2SAT 99; Ht 182.9 cm; Wt 84.8 kg
--- NOTE | 2016-12-09 14:20 | HISTORY & PHYSICAL EXAMINATION ---
DATE OF ADMISSION: 12/09/2016 CHIEF COMPLAINT: Chest pain. REASON FOR ADMISSION: Chest pain, possible unstable angina. HISTORY OF PRESENT ILLNESS: Mr. Jackson is a 66-year-old male who has a known history of coronary artery disease in 2007 having CO and 3 stents. The patient presented to Dr. Gallardo's office for routine appointment. The patient states that over the last few weeks he has been having accelerated bouts of chest pain associated with back pain, nausea and diaphoresis. The pain radiates to his neck also. The patient has not had any recent changes in medications. The patient states this discomfort this morning began at rest. Reportedly, he was sent from Dr. Gallardo's office with abnormal EKG of which we do not have a copy. The patient is currently has this pain almost resolved with the administration of oxygen, morphine and nitro en route to the Emergency Department. He is resting comfortably. He is concerned this is a recurrence of his unstable angina. PAST MEDICAL HISTORY: For TIA, CVA and CO as mentioned. He had a peridiverticular abscess which required sigmoid colectomy. 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 He had a colostomy for a period of time which has since been reversed. Previous history of GI bleed, appendectomy, cholecystectomy, previous history of migraines. MEDICATIONS: On presentation are aspirin 81 a day, vitamin D 50,000 units a week, Prozac 10 a day, multivite once a day and p.r.n. clonazepam for restless legs. SOCIAL HISTORY: He is a smoker who quit over 10 years ago, but he smoked for 15 years. He does not drink alcohol. He is . FAMILY HISTORY: Positive for hypertension and heart disease. REVIEW OF SYSTEMS: Ten systems were reviewed and otherwise are negative with the exception of left lower quadrant pain which is chronic, constant and daily since he has had the surgery. PHYSICAL EXAMINATION: GENERAL: He is a pleasant gentleman. He is in minor distress. VITAL SIGNS: Temperature 36.8, pulse is 58, respirations 18, BP 121/67, O2 sat 98% on 2 liters, but he was 97% on room air. HEENT: PERRL, EOMI. Oropharynx clear. NECK: Without lymphadenopathy. There is no JVD. HEART: Regular. No murmurs, clicks, rubs or gallops. He has no reproducible chest pain. LUNGS: Clear without wheezes or crackles. Good air movement. SPINE: Nontender. There is no CV angle tenderness. ABDOMEN: Normoactive bowel sounds, soft. He has no organomegaly. There are no abdominal bruits. He is minorly tender in the left lower quadrant where he had a sigmoid colectomy. EXTREMITIES: Without cyanosis, clubbing or edema. He has no Homans' signs or cords. NEUROLOGICALLY: Awake, alert and appropriate. Cranial nerves II through XII are intact. Equal symmetrical strength and sensation in upper and lower extremities. PSYCHOLOGIC: He appears neither anxious nor depressed. LABORATORY DATA: He has an EKG showing normal sinus rhythm without any acute ST or T-wave changes. A chest x-ray which was unremarkable. A CT angiogram showed no pulmonary embolisms. His white count is 7, H\T\H 16 and 47, platelet count 174, BUN and creatinine 15 and 0.96 and troponin is normal at 0.015. ASSESSMENT: A 66-year-old male with known cardiac risk factors who presents with chest pain of accelerated nature. PLAN: The patient will be observed in our facility. Serial troponins will be taken. He has already had an echocardiogram in the Emergency Department. His aspirin will be maintained at 81. We will consult cardiology for risk stratification. For his depression, Prozac will be maintained. DVT prevention was enoxaparin.
[2016-12-09 15:13] VITALS: BP 132/76; PULSE 51; TEMP 36.5; O2SAT 98
--- NOTE | 2016-12-09 15:21 | EMERGENCY ROOM VISIT NOTE ---
History Report prepared by Irina: Darien Howard Under the Supervision of: Dr. Jarret Silvestre D.O. First contact with patient: 11:33 Chief Complaint: CHEST PAIN Stated Complaint: CHEST PAIN Nursing Triage Summary: PT PRESENTS WITH CHEST PAIN, DIAPHORESIS TODAY CHEST PAIN BEGAN ABOUT A 1.5 HOURS AGO HAD AN APPOINTMENT WITH DR GALLARDO AND WAS SENT BY AMBULANCE TO THE ED FOR EKG CHANGES PT HAD A CARDIAC CATH NOVEMBER 2007 AND HAD THREE STENTS PLACED DR GALLARDO WOULD LIKE A CARDIAC ECHO ORDERED AND THEN ADMISSION History of Present Illness The patient is a 66 year old male who presents to the Emergency Room with complaints of worsened chest pain since 0800. The patient has been experiencing intermittent chest pain, dizziness, and syncope since September. The symptoms have been becoming more frequent. The patient's chest pain was worse today, rated 7/10 in severity. He also has pain radiating to his back and left arm. The pain is sometimes exertional but can also be felt at rest. The patient saw his Inhalation Therapy Teacher, Dr. Gallardo, today who referred him to the ED. The patient had a baby aspirin this morning and a full aspirin en route. He did not have nitroglycerin. The patient's pain feels the same as the heart attack he had in 2007. The patient had three stents placed. Patient denies headache, change in vision, fevers, shortness of breath, nausea, vomiting, diarrhea, pain with urination, and melena. Source of History: patient Onset: 0800 Position: chest Symptom Intensity: 7/10 Timing: worsening Associated Symptoms: + back pain, No SOB, No diarrhea, No fevers, No headache, No melena, No nausea, No urinary symptoms, No vomiting Review of Systems See HPI for pertinent positives & negatives. A total of 10 systems reviewed and were otherwise negative. Past Medical & Surgical Medical Problems: (1) Abdominal aneurysm (2) Abscess (3) Chest pain (4) Colostomy (5) Coronary artery disease (6) Diverticulitis of colon (7) GI bleed (8) Kidney stone (9) Myocardial infarction (10) Pneumonia (11) sigmoid resection Surgical Problems: (1) History of appendectomy (2) History of colectomy Family History Hypertension Social History Smoking Status: Current Every Day Smoker Alcohol Use: none Drug Use: none Marital Status: Housing Status: lives with significant other Occupation Status: retired Current/Historical Medications Scheduled Aspirin (Aspirin Ec), 81 MG PO DAILY Ergocalciferol (Vitamin D 84506 Unit), 50,000 UNIT PO WK Fluoxetine (Prozac), 10 MG PO HS Multiple Vitamins W/ Minerals (Mens 50+ Advanced), 1 CAP PO DAILY Scheduled PRN Clonazepam (Klonopin), 0.5 MG PO DAILY PRN for RESTLESS LEGS Allergies Coded Allergies: Penicillins (Verified Allergy, Severe, SEVERE SWELLING, anaphylaxis, ) Metronidazole (Verified Allergy, Intermediate, swelling, 12/09/16) Physical Exam Vital Signs Date Time Temp Pulse Resp B/P Pulse Ox O2 Delivery O2 Flow Rate FiO2 12/09/16 12:11 55 121/67 12/09/16 11:47 58 18 147/78 98 Nasal Cannula 2.0 12/09/16 11:11 97 Nasal Cannula 2.0 12/09/16 11:07 62 12/09/16 11:05 97 Room Air 12/09/16 11:05 36.8 62 16 149/87 97 Room Air 12/09/16 11:05 97 Room Air Physical Exam GENERAL: Sitting up in bed, disheveled, nontoxic. EYE EXAM: normal conjunctiva. OROPHARYNX: no exudate, no erythema, lips, buccal mucosa, and tongue normal and mucous membranes are moist NECK: supple, no nuchal rigidity, no adenopathy, non-tender LUNGS: Clear to auscultation. Normal chest wall mechanics HEART: no murmurs, S1 normal and S2 normal ABDOMEN: abdomen soft, left upper quadrant tenderness, normo-active bowel sounds , no masses, no rebound or guarding. BACK: Back is symmetrical on inspection and there is no deformity, no midline tenderness, no CVA tenderness. SKIN: no rashes and no bruising UPPER EXTREMITIES: upper extremities are grossly normal. Radial pulses equal bilateral LOWER EXTREMITIES: No pitting edema. Calves are equal bilaterally. NEURO EXAM: Normal sensorium, cranial nerves II-XII grossly intact, normal speech, no gross weakness of arms, no gross weakness of legs. Gross sensation intact. Medical Decision & Procedures ER Provider Diagnostic Interpretation: Xray results per the radiologist and my interpretation. CHEST ONE VIEW PORTABLE CLINICAL HISTORY: Chest pain. COMPARISON STUDY: Chest radiograph and chest CT November 14, 2016. FINDINGS: Lung volumes are normal. There is no pneumothorax or pleural effusion. Cardiomediastinal silhouette is stable. No consolidation is identified. Mild interstitial prominence is similar to prior exam. There is no evidence for overt pulmonary edema. IMPRESSION: No acute cardiopulmonary findings. Electronically signed by: Charlie Obrien M.D. 12/09/2016 12:00 PM Dictated Date/Time: 12/09/2016 11:59 AM Laboratory Results 12/09/16 11:13 Red Blood Count 5.44, Mean Corpuscular Volume 87.3, Mean Corpuscular Hemoglobin 30.0, Mean Corpuscular Hemoglobin Concent 34.3, Mean Platelet Volume 10.5, Neutrophils (%) (Auto) 70.2, Lymphocytes (%) (Auto) 20.5, Monocytes (%) (Auto) 6.7, Eosinophils (%) (Auto) 2.0, Basophils (%) (Auto) 0.3, Neutrophils # (Auto) 5.25, Lymphocytes # (Auto) 1.53, Monocytes # (Auto) 0.50, Eosinophils # (Auto) 0.15, Basophils # (Auto) 0.02 12/09/16 11:13 Test 12/09/16 11:13 White Blood Count 7.47 K/uL (4.8-10.8) Red Blood Count 5.44 M/uL (4.7-6.1) Hemoglobin 16.3 g/dL (14.0-18.0) Hematocrit 47.5 % (42-52) Mean Corpuscular Volume 87.3 fL (80-100) Mean Corpuscular Hemoglobin 30.0 pg (25-34) Mean Corpuscular Hemoglobin Concent 34.3 g/dl (32-36) Platelet Count 174 K/uL (130-400) Mean Platelet Volume 10.5 fL (7.4-10.4) Neutrophils (%) (Auto) 70.2 % Lymphocytes (%) (Auto) 20.5 % Monocytes (%) (Auto) 6.7 % Eosinophils (%) (Auto) 2.0 % Basophils (%) (Auto) 0.3 % Neutrophils # (Auto) 5.25 K/uL (1.4-6.5) Lymphocytes # (Auto) 1.53 K/uL (1.2-3.4) Monocytes # (Auto) 0.50 K/uL (0.11-0.59) Eosinophils # (Auto) 0.15 K/uL (0-0.5) Basophils # (Auto) 0.02 K/uL (0-0.2) RDW Standard Deviation 42.6 fL (36.4-46.3) RDW Coefficient of Variation 13.4 % (11.5-14.5) Immature Granulocyte % (Auto) 0.3 % Immature Granulocyte # (Auto) 0.02 K/uL (0.00-0.02) Anion Gap 7.0 mmol/L (3-11) Est Creatinine Clear Calc Drug Dose 83.1 ml/min Estimated GFR () 95.1 Estimated GFR (Non- 82.0 BUN/Creatinine Ratio 15.5 (10-20) Calcium Level 9.0 mg/dl (8.5-10.1) Total Creatine Kinase 54 U/L (39-308) Creatine Kinase MB 0.7 ng/ml (0.5-3.6) Creatine Kinase MB Ratio 1.3 (0-3.0) Troponin I < 0.015 ng/ml (0-0.045) Laboratory results per my review. Medications Administered Medications (Trade) Dose Ordered Sig/Alan Route Start Time Stop Time Status Last Admin Dose Admin Nitroglycerin (Nitrostat Tab) 0.4 mg Q5M PRN SL 12/09/16 11:45 12/09/16 14:39 DC 12/09/16 12:11 0.4 MG Morphine Sulfate (MoRPHine SULFATE INJ) 4 mg NOW STAT IV 12/09/16 12:19 12/09/16 12:20 DC 12/09/16 12:26 4 MG Perflutren Lipid Microsphere (Definity) 2 ml ONE ONCE IV 12/09/16 13:25 12/09/16 13:26 DC 12/09/16 13:26 2 ML Morphine Sulfate (MoRPHine SULFATE INJ) 4 mg Q4H PRN IV 12/09/16 13:45 12/23/16 13:44 12/09/16 14:00 4 MG ECG Indication: chest pain Rate (beats per minute): 58 Rhythm: sinus bradycardia Findings: Q waves (Septal), left axis deviation, other (peaked T waves anteriorly) Comparison ECG Date: 21 November 2016 Change: no significant change ED Course ED COURSE: Vital signs were reviewed and showed bradycardia. The patients medical record was reviewed The above diagnostic studies were performed and reviewed. ED treatments and interventions as stated above. 1136: The patient was evaluated in room C7. A complete history and physical examination was performed. 1142: Discussed the case with Dr. Fernández, Inhalation Therapy Teacher. Recommends an echocardiogram and hospitalization. He does not think that patient is having a STEMI. 1145: Nitrostat 0.4 mg SL. 1219: Morphine Sulfate 4 mg IV. 1220: CTA chest on 11/14/16 shows no dissection or aneurysm. 1330: Discussed the case with Dr. Ruggiero, [facility] Hospitalist. The patient will be evaluated. 1335: Upon reevaluation, the patient is stable.I discussed my findings with the patient and he understands and agrees with the treatment plan. Based on the patients age, coexisting illnesses, exam and lab findings the decision to treat as an inpatient was made. The patient remained stable while under my care. The patient will be evaluated for further management. Medical Decision Differential diagnoses includes but is not limited to acute coronary syndrome, myocardial infarction, pericarditis, pulmonary embolus, aortic dissection, pneumonia, pneumothorax, musculoskeletal, shingles, esophageal. Patient is a 66-year-old man referred in by cardiology for peak T waves on his EKG associated with chest pain. He has been seen here multiple times recently for chest pain. Labs show no significant leukocytosis or anemia. BMP along with troponin was negative. Chest x-ray was unremarkable. His pain does radiate through to his back. Upon review he did have a CTA of his chest which showed no PEs or dissection on CT. This was performed earlier this month. I did not feel is prudent to repeat this especially with a negative chest x-ray and since his symptoms have been coming and going and not changed. He was given nitroglycerin did have mild improvement of his pain. EKG was unchanged from the one performed in the office. He was given a small dose of narcotics for his pain as a morphine did resolve it. He was given aspirin via EMS. Discussed with the intensive care unit registered nurse and he did have an echo performed at bedside with their assistance. Patient was updated bedside and is admitted to internal medicine for precordial chest pain with peak T waves. Consults Time Called: 1130 Consulting Physician: Dr. Fernández Inhalation Therapy Teacher. Returned Call: 1142 Discussed the case with Dr. Zota, Inhalation Therapy Teacher. Additional Consults: Time Called: 1320 Consulted Physician: Dr. Ruggiero, [facility] Hospitalist Returned Call: 1330 Additional Comments: 1330: Discussed the case with Dr. Ruggiero, [facility]. The patient will be evaluated. Impression Primary Impression: Precordial chest pain Scribe Attestation The scribe's documentation has been prepared under my direction and personally reviewed by me in its entirety. I confirm that the note above accurately reflects all work, treatment, procedures, and medical decision making performed by me. Departure Information Dispostion Being Evaluated By Hospitalist Referrals Mariah Lewis, [email or web address] (PCP) Patient Instructions My [facility]
--- NOTE | 2016-12-09 15:46 | ECHOCARDIOGRAM REPORT ---
*NOTICE TO RECEIVING LIBERTARIAN AGENCY This information is strictly Confidential and protected under [place] law. [place] law prohibits you from making any further disclosure of this information unless further disclosure is expressly permitted by the written consent of the person to whom it pertains or is authorized by law. A general authorization for the release of medical or other information is not sufficient for this purpose. Hospital accepts no responsibility if the information is made available to any other person, INCLUDING THE PATIENT. Interpretation Summary * Name: JUAN R WESTBROOK SR Study Date: 12/09/2016 01:44 PM BP: 121/67 mmHg * Patient Location: [facility] HR: 55 * : 1950 (M/d/yyyy) Gender: Male Height: 72 in * Age: 66 yrs Ethnicity: CA Weight: 195 lb * Ordering Physician: Jarret Silvestre * Performed By: Ally Baltazar RDCS * * Reason For Study: Chest pain * BSA: 2.1 m2 * -- Conclusions -- * 1. Normal left ventricular size with hyperdynamic systolic function. 65-70%. No regional wall motion abnormalities. Moderate concentric left ventricular hypertrophy. Diastolic dysfunction, Grade II (pseudonormalization pattern). * Mild aortic regurgitation. * 2. Sclerotic aortic valve without significant stenosis. Mild aortic regurgitation. * 3. Systolic anterior motion of the mitral leaflet without significant gradient. * 4. There is mild mitral regurgitation. * 5. Normal estimated right ventricular systolic pressure; 28 mmHg. * 6. Technically difficult study, enhanced with IV Definity. * 7. Compared to prior study on 05/15/2015, LV systolic function is less hyperdynamic. Systolic anterior motion of the mitral leaflet appears less severe on current study and there does not appear to be any significant gradient, compared to last echo. Procedure Details * A complete two-dimensional transthoracic echocardiogram was performed (2D, M-mode, Doppler and color flow Doppler). * A contrast injection of Definity was performed to improve assessment of LV function. * Contrast was injected into an intravenous site in the right arm. * One vial of Definity ultrasound contrast was diluted in normal saline to a total volume of 10 ml. A total of '2' ml of solution was administered during imaging. * Lot # [id number] of Definity utilized for procedure. * Expiration date OCT 29. * The attending nurse who injected the contrast agent was Hudson Way RN. Left Ventricle * Normal left ventricular size with hyperdynamic systolic function. 65-70%. No regional wall motion abnormalities. Moderate concentric left ventricular hypertrophy. * Ejection Fraction = 65-70%. Right Ventricle * Top-normal right ventricular size with normal systolic function. * The right ventricular systolic function is normal as assessed by tricuspid annular plane systolic excursion (TAPSE) (normal >1.5 cm). Atria * The left atrium is borderline dilated. * Right atrial size is normal. * Lipomatous hypertrophy of the interatrial septum is noted. * There is no evidence of atrial septal defect, but resolution does not allow assessment for a patent foramen ovale. Mitral Valve * There is systolic anterior motion of the mitral valve. * There is no mitral valve stenosis. * There is mild mitral regurgitation. Tricuspid Valve * The tricuspid valve is not well visualized, but is grossly normal. * There is no tricuspid stenosis. * There is mild tricuspid regurgitation. Aortic Valve * The aortic valve is trileaflet. * Aortic valve sclerosis mild, without significant aortic valvular stenosis. * No hemodynamically significant valvular aortic stenosis. * Mild aortic regurgitation. Pulmonic Valve * The pulmonary valve is inadequately visualized, but the Doppler data is adequate for interpretation. * There is no pulmonic valvular stenosis. * Trace pulmonic valvular regurgitation. Great Vessels * The aortic root is normal size. * Ascending aorta of normal dimension * Normal pulmonary venous flow pattern. Pericardium/Pleural * There is no pericardial effusion. Great Vessels * Normal IVC size with reduced inspiratory collapse. Left Ventricular Diastolic Function * Diastolic dysfunction, Grade II (pseudonormalization pattern). MMode 2D Measurements and Calculations IVSd 1.5 cm LVIDd 3.9 cm LVIDs 2.5 cm LVPWd 1.4 cm IVS/LVPW 1.0 FS 36.8 % EDV(Teich) 65.4 ml ESV(Teich) 21.3 ml EF(Teich) 67.4 % EDV(cubed) 58.7 ml ESV(cubed) 14.8 ml EF(cubed) 74.8 % LV mass(C)d 215.1 grams LV mass(C)dI 102.0 grams/m\S\2 SV(Teich) 44.1 ml SI(Teich) 20.9 ml/m\S\2 SV(cubed) 43.9 ml SI(cubed) 20.8 ml/m\S\2 Ao root diam 3.1 cm Ao root area 7.6 cm\S\2 ACS 1.5 cm LA dimension 2.5 cm asc Aorta Diam 3.2 cm LA/Ao 0.81 LVOT diam 2.0 cm LVOT area 3.1 cm\S\2 LVAd ap4 35.7 cm\S\2 LVLd ap4 8.2 cm EDV(MOD-sp4) 126.1 ml EDV(sp4-el) 131.5 ml LVAs ap4 16.6 cm\S\2 LVLs ap4 6.0 cm ESV(MOD-sp4) 38.9 ml ESV(sp4-el) 39.3 ml EF(MOD-sp4) 69.1 % EF(sp4-el) 70.1 % LVAd ap2 35.7 cm\S\2 LVLd ap2 8.3 cm EDV(MOD-sp2) 128.5 ml EDV(sp2-el) 129.3 ml LVAs ap2 16.7 cm\S\2 LVLs ap2 6.6 cm ESV(MOD-sp2) 36.4 ml ESV(sp2-el) 36.2 ml EF(MOD-sp2) 71.7 % EF(sp2-el) 72.0 % LVLd %diff 0.68 % EDV(MOD-bp) 132.0 ml LVLs %diff 10.3 % ESV(MOD-bp) 37.4 ml EF(MOD-bp) 71.7 % SV(MOD-sp4) 87.2 ml SI(MOD-sp4) 41.4 ml/m\S\2 SV(MOD-sp2) 92.1 ml SI(MOD-sp2) 43.7 ml/m\S\2 SV(MOD-bp) 94.7 ml SI(MOD-bp) 44.9 ml/m\S\2 SV(sp4-el) 92.2 ml SI(sp4-el) 43.7 ml/m\S\2 SV(sp2-el) 93.1 ml SI(sp2-el) 44.2 ml/m\S\2 Doppler Measurements and Calculations MV E max humera 89.3 cm/sec MV A max humera 57.9 cm/sec MV E/A 1.5 MV dec time 0.22 sec Ao V2 max 170.5 cm/sec Ao max PG 11.6 mmHg Ao max PG (full) 6.9 mmHg Ao V2 mean 111.5 cm/sec Ao mean PG 5.8 mmHg Ao V2 VTI 38.7 cm KRISTOPHER(V,A) 2.0 cm\S\2 KRISTOPHER(V,D) 2.0 cm\S\2 AI max humera 433.0 cm/sec AI max PG 75.0 mmHg AI dec slope 170.2 cm/sec\S\2 AI P1/2t 745.2 msec LV V1 max PG 4.8 mmHg LV V1 max 109.3 cm/sec MR max humera 490.7 cm/sec MR max PG 96.3 mmHg MR mean humera 437.6 cm/sec MR mean PG 80.0 mmHg MR VTI 160.1 cm SV(Ao) 295.2 ml SI(Ao) 140.1 ml/m\S\2 TV E max humera 53.2 cm/sec PA V2 max 91.8 cm/sec PA max PG 3.4 mmHg PA acc slope 787.6 cm/sec\S\2 PA acc time 0.10 sec TR max humera 226.0 cm/sec RVSP(TR) 28.4 mmHg RAP systole 8.0 mmHg PA pr(Accel) 35.3 mmHg
[2016-12-09] MEDS ORDERED: HYDROmorphone INJ 1 MG/ML SYR IV STA (15:59)
[2016-12-09 16:00] VITALS: O2SAT 98
[2016-12-09] MEDS: HYDROmorphone INJ 1 MG/ML SYR IV PRN ×2 (16:43→20:58)
--- NOTE | 2016-12-09 17:41 | CARDIOLOGY CONSULTATION ---
DATE OF CONSULTATION: 12/09/2016 PRIMARY PHYSICIAN: JOB Ornelas. REFERRING PHYSICIAN: Isaac Loaiza MD CONSULTATION: Butch Gallardo MD HISTORY OF PRESENT ILLNESS: The patient was seen by me earlier today in the office. He had presented for cardiology followup. He was referred from the office to the Emergency Department for admission to [facility]. History and exam by me was performed in the office. This office note has been sent to the telemetry unit. It will be scanned into the [employer] electronic health records. Please see this note for this consultation. ADDENDUM: Labs performed in the Emergency Department revealed hemoglobin 16.3, hematocrit 47.5, platelet count 174. Metabolic profile was normal. BUN 15, creatinine 0.96, potassium 4.3, sodium 138. Random glucose 87. CK total 57 with MB of 0.7. Troponin I less than 0.015. Echocardiography performed in the Emergency Department revealed normal LV size. Hyperdynamic LV systolic function. No regional wall motion abnormalities. Moderate concentric LVH. Grade 2 diastolic dysfunction. Mild aortic regurgitation. Systolic anterior motion of mitral leaflet without significant gradient. Mild mitral regurgitation. Normal estimated right ventricular systolic pressure. Chest x-ray was performed and revealed no acute abnormalities. The patient has recently been having prolonged episodes of chest pain lasting up to a few hours at a time. Prolonged episode today. Cardiac enzymes are negative for myocardial injury. No segmental wall motion abnormalities of the left ventricle on echocardiography. Thus, do not suspect an acute coronary process. If his pain was secondary to myocardial ischemia, would expect wall motion abnormalities or elevation in his cardiac enzymes. The patient also complained of severe lightheadedness. Multiple blood pressures obtained when he was in the office this morning were normal. Review of blood pressures since arrival to the hospital show that they have been mildly elevated to normal. As there is no objective evidence of myocardial ischemia, we would recommend monitoring overnight and telemetry. Stress echocardiogram tomorrow. This is provided that repeat cardiac enzymes remain negative for evidence of myocardial injury. If further cardiac enzymes reveal evidence of myocardial ischemia/injury, then we would recommend a repeat cardiac catheterization. The above assessment and recommendations were discussed with Dr. Isaac Loaiza. Dr. Micah Kelly will be covering for me over the next 2 days.
[2016-12-09] MEDS ORDERED: IV FLUIDS COMPLETED PRN (20:30)
[2016-12-09] MEDS: FLUOXETINE HCL 10 MG CAP PO SCH (20:57)
[2016-12-09] MEDS: ENOXAPARIN 40 MG/0.4 ML SYR SC SCH (20:58)
[2016-12-09] MEDS: CLONAZEPAM 0.5 MG TAB PO PRN (20:59)
[2016-12-09 23:31] VITALS: BP 113/66; PULSE 56; TEMP 36.4; O2SAT 94
[2016-12-10] VITALS (8 sets, daily range): BP systolic 108–122; BP diastolic 67–71; PULSE 56–88; TEMP 36.4–36.6; O2SAT 93–96
[2016-12-10] MEDS: HYDROmorphone INJ 1 MG/ML SYR IV PRN ×6 (01:08→22:34)
[2016-12-10] MEDS: ASPIRIN 81 MG ECTAB PO SCH (07:34)
[2016-12-10] MEDS: CEROVITE ADV FORMULA TAB PO SCH (07:34)
--- NOTE | 2016-12-10 10:48 | CARDIOLOGY PROGRESS NOTE ---
DATE: 12/10/2016 TIME: 09:54 a.m. SUBJECTIVE: I am seeing Mr. Jackson for Dr. 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 He was sent from Dr. Gallardo's office for admission. Please see Dr. Gallardo's full note that is scanned into [employer]. He had chest discomfort and back pain. The chest discomfort is present for several hours at a time. Despite this, he has had negative troponin levels and an echo with hyperdynamic systolic function without wall motion abnormalities. Chest pain has been well controlled since admission. He continues to have upper back pain. He denies palpitation, syncope, near syncope, or orthopnea. OBJECTIVE: VITAL SIGNS: Temperature 36.4 degrees; heart rate 62 beats per minute, but mostly bradycardia with other pulse evaluations; respiratory rate 18; and blood pressure 113/67 mmHg. Blood pressure has been well controlled. Oxygen saturation is 95% on room air. Weight is 86.2 kg. GENERAL: No acute distress. He is alert. NECK: No appreciable JVD. CARDIAC EXAM: No ventricular heave. PMI is nonpalpable. Normal S1 and S2, regular. 1/6 holosystolic murmur best heard at the apex. 1/6 early peaking systolic ejection murmur best heard at the right upper sternal border. No rubs or gallops. LUNGS: Clear to auscultation bilaterally without wheezes, rales or rhonchi. ABDOMEN: Soft, nontender, and nondistended. Normoactive bowel sounds. EXTREMITIES: No cyanosis or edema. Distal pulses intact. BACK: Tenderness to palpation along the upper back bilaterally. This reproduces his back pain described in the HPI. MEDICATIONS: Include aspirin 81 mg daily, Lovenox 40 mg subQ at bedtime, and Dilaudid 1 mg IV q. 4 hours p.r.n. Telemetry personally reviewed. Sinus rhythm. No arrhythmias noted. ECG at 06:51 a.m. this morning personally reviewed. Sinus rhythm at 60 beats per minute. Possible septal infarct. Echocardiogram performed yesterday demonstrated hyperdynamic LV systolic function with an EF of 65%-70%. No regional wall motion abnormalities. Moderate concentric LVH. Type 2 diastolic dysfunction. Mild AI. Systolic anterior motion of the mitral leaflet without significant gradient. Mild MR. LABORATORY DATA: Hemoglobin 16.3 and platelets 174. Sodium 138, potassium 4.3, BUN 15, and creatinine 0.96. Troponin undetectable x3. Chest x-ray from 12/09/2016, no acute cardiopulmonary findings reported. ASSESSMENT AND PLAN: 1. Chest pain: Atypical chest pain for ischemic heart disease. It was present for several hours and he has negative troponin levels and no wall motion abnormalities on echo. There are no dynamic changes on ECG that suggest ischemic event. Chest pain is not likely cardiac. A stress test has been recommended by Dr. Gallardo. Mr. Jackson has declined exercise stress echo given his knees. Therefore, recommend myocardial perfusion study for Monday given the fact that he is already hyperdynamic in regards to his LV systolic function. He was reminded not to consume any caffeinated beverages 24 hours prior to this test. He has been evaluated for the same chest pain earlier this month with a CT scan, which was negative for pulmonary embolism or aortic dissection. 2. Back pain. It is reproducible upon exam and suggestive of musculoskeletal pain. 3. Coronary artery disease, status post percutaneous coronary intervention: Continue aspirin 81 mg daily indefinitely. No angina. It appears as though he has been on high intensity statin therapy in the past, but is not currently on high intensity statin therapy. This will be deferred until Dr. Gallardo is available as he has been involved with this medication in the past and there is likely a reason that has been discontinued. He has been on beta blockers and HUMBLE inhibitor in the past as well. He is having intermittent bradycardia and therefore, beta kg therapy has not started at this time. Blood pressure is well controlled. 4. Prehospital lightheadedness: He did have some lightheadedness while in Dr. Gallardo's office. His blood pressure was normal throughout that episode. Lightheadedness does not appear to be related to blood pressure or other cardiovascular issues. 5. Systolic anterior motion of the mitral leaflet with regurgitation: No significant LVOT obstruction noted on echo. Would avoid dehydration. Beta blockers can often be used for obstruction; however, he is bradycardic and no obstruction at this time. 6. Aortic regurgitation: Mild. This can be followed over time. 7. Disposition: Cardiology will continue to follow. Possible myocardial perfusion study on Monday. DAGOBERTO
--- NOTE | 2016-12-10 12:47 | Progress Note ---
Subjective Date of Service: Dec 10, 2016. Subjective pt has persistent mid scapular back pain, negative enzymes but cannot walk on treadmill, so will need chemical stress Problem List Medical Problems: (1) Abdominal pain Status: Acute (2) Chest pain Status: Acute (3) Chest pain Status: Acute (4) Colitis Status: Acute (5) Dehydration Status: Acute (6) Dehydration Status: Acute (7) Flank pain Status: Acute (8) Headache Status: Acute (9) History of aortic aneurysm Status: Acute (10) Left sided abdominal pain Status: Acute (11) Nasal bleeding Status: Acute (12) Non-cardiac chest pain Status: Acute (13) Pneumonia Status: Acute (14) Precordial chest pain Status: Acute (15) Precordial chest pain Status: Acute (16) Right hand weakness Status: Acute (17) Transient weakness of left leg Status: Acute Review of Systems Constitutional: No chills, No fever, No weakness Respiratory: No cough, No dyspnea on exertion, No shortness of breath, No sputum Cardiac: + chest pain, No claudication, No edema Abdomen: No diarrhea, No nausea, No pain, No vomiting Musculoskeletal: No joint pain, No muscle pain Neurologic: No memory loss, No numbness/tingling, No paralysis, No weakness Objective Vital Signs Date Time Temp Pulse Resp B/P Pulse Ox O2 Delivery O2 Flow Rate FiO2 12/10/16 12:00 Room Air 12/10/16 10:52 36.4 57 18 112/71 95 Room Air 12/10/16 08:16 36.4 62 18 113/67 95 Room Air 12/10/16 08:00 95 Room Air 12/10/16 04:13 36.5 59 18 116/70 93 Room Air 12/10/16 04:00 Room Air 12/09/16 23:59 Room Air 12/09/16 23:31 36.4 56 18 113/66 94 Room Air 12/09/16 20:00 Room Air 12/09/16 16:00 98 Nasal Cannula 2.0 12/09/16 15:13 36.5 51 16 132/76 98 2.0 12/09/16 14:05 57 18 129/64 99 Nasal Cannula 2.0 12/09/16 13:58 99 Room Air Physical Exam General Appearance: WD/WN, + mild distress Eyes: PERRL, EOMI Neck: supple, no JVD Respiratory/Chest: chest non-tender, lungs clear, normal breath sounds Cardiovascular: regular rate, rhythm, no murmur Abdomen: normal bowel sounds, soft, + tenderness (LLQ but is his baseline) Neurologic/Psychiatric: alert, oriented x 3 Laboratory Results Last 24 Hours Test 12/09/16 19:30 12/10/16 03:31 Troponin I < 0.015 ng/ml < 0.015 ng/ml Assessment and Plan A 66-year-old male with known cardiac risk factors who presents with chest pain of accelerated nature. Chest pain, negative serial troponins, echocardiogram and eventual chemical stress test 12/12 His aspirin will be maintained at 81. consult cardiology does follow him as outpt depression, Prozac DVT p enoxaparin.
[2016-12-10] MEDS: ENOXAPARIN 40 MG/0.4 ML SYR SC SCH (20:54)
[2016-12-10] MEDS: FLUOXETINE HCL 10 MG CAP PO SCH (20:54)
[2016-12-10] MEDS: CLONAZEPAM 0.5 MG TAB PO PRN (22:33)
[2016-12-10] MEDS: ONDANSETRON INJ 2 MG/ML 2 ML VIAL IV PRN (23:13)
[2016-12-11] MEDS: HYDROmorphone INJ 1 MG/ML SYR IV PRN ×6 (02:43→23:11)
[2016-12-11 03:50] VITALS: BP 113/72; PULSE 58; TEMP 36.6; O2SAT 94
[2016-12-11] MEDS: ACETAMINOPHEN 325 MG TAB PO PRN ×2 (03:54→17:06)
[2016-12-11 03:55] VITALS: BP 96/61; PULSE 63; O2SAT 95
[2016-12-11] MEDS: CEROVITE ADV FORMULA TAB PO SCH (07:10)
[2016-12-11] MEDS: ASPIRIN 81 MG ECTAB PO SCH (07:10)
[2016-12-11 07:34] VITALS: BP 106/65; PULSE 64; TEMP 36.3; O2SAT 90
--- NOTE | 2016-12-11 08:24 | CARDIOLOGY PROGRESS NOTE ---
DATE: 12/11/2016 TIME: 7:33 a.m. SUBJECTIVE: He did have an episode of chest discomfort overnight. An ECG was done at that time, which did not demonstrate any ischemic changes. He was given nitroglycerin and the pain eventually resolved within approximately 15 minutes. He continues to have upper back pain, but this is improving slowly. He denies shortness of breath, syncope, near syncope, palpitations. He is tolerating ambulation within his room without exertional symptoms. OBJECTIVE: VITAL SIGNS: Temperature 36.6 degrees, heart rate 63 beats per minute, respiratory rate 18, blood pressure 96/61 mmHg overnight. Otherwise, his blood pressure has been well controlled and normotensive. Weight 85.3 kg. GENERAL: No acute distress. He is alert. NECK: No appreciable JVD. CARDIAC EXAM: No ventricular heave. Regular, normal S1, S2. 1/6 holosystolic murmur best heard at the apex. No rubs or gallops. LUNGS: Clear to auscultation bilaterally without wheezes, rales or rhonchi. ABDOMEN: Soft, mildly tender throughout, nondistended, normoactive bowel sounds. EXTREMITIES: No cyanosis or edema. PSYCHIATRIC: Affect appears appropriate. MEDICATIONS: Include, aspirin 81 mg daily, Lovenox 40 mg subQ at bedtime, Dilaudid 1 mg IV q. 4 hours p.r.n., which he has been receiving regularly. No new labs today. ECG personally reviewed as noted above. Telemetry strips reviewed, no arrhythmia noted. ASSESSMENT AND PLAN: 1. Chest pain: His chest pain is atypical and does not appear to be consistent with ischemic heart disease upon presentation as he had it for several hours with negative troponin levels. It has been intermittently occurring for most of this month. He did have a short-lived episode overnight. He has been ordered a myocardial perfusion study tomorrow. No caffeine for 24 hours. 2. Back pain. Reproducible upon exam, which suggests a musculoskeletal origin. Workup and treatment as per primary hospitalist service. 3. Coronary artery disease status post percutaneous coronary intervention: He does have a history of percutaneous coronary intervention. Continue aspirin 81 mg daily indefinitely. No definite angina as noted above. It appears as though he has been on high intensity statin therapy in the past, but is not currently on this. This can be further evaluated by Dr. Gallardo when he returns tomorrow as it was likely discontinued for a reason in the past. He does have intermittent bradycardia and is not currently on a beta-kg. 4. Prehospital lightheadedness: Blood pressure was normal during these episodes as documented by Dr. Gallardo. No clear cardiovascular etiology. 5. Systolic anterior motion of the mitral leaflet with regurgitation: There was no significant left ventricular outflow tract obstruction noted on current hospitalization echo; however, he did have obstruction in the past. Avoid dehydration or potent vasodilators. 6. Aortic regurgitation: Non-severe. This can be monitored over time. 7. Disposition: Dr. Gallardo will resume his cardiology care tomorrow.
--- NOTE | 2016-12-11 08:37 | Progress Note ---
Subjective Date of Service: Dec 11, 2016. Subjective this pt is still having some chest pain at times, last pm was relieved with nitroglycerin Problem List Medical Problems: (1) Abdominal pain Status: Acute (2) Chest pain Status: Acute (3) Chest pain Status: Acute (4) Colitis Status: Acute (5) Dehydration Status: Acute (6) Dehydration Status: Acute (7) Flank pain Status: Acute (8) Headache Status: Acute (9) History of aortic aneurysm Status: Acute (10) Left sided abdominal pain Status: Acute (11) Nasal bleeding Status: Acute (12) Non-cardiac chest pain Status: Acute (13) Pneumonia Status: Acute (14) Precordial chest pain Status: Acute (15) Precordial chest pain Status: Acute (16) Right hand weakness Status: Acute (17) Transient weakness of left leg Status: Acute Review of Systems Constitutional: No chills, No fever Respiratory: + shortness of breath, No cough Cardiac: + chest pain, No edema Abdomen: + diarrhea, No constipation, No nausea, No pain, No vomiting Psychiatric: No anhedonism, No depression symptoms Objective Vital Signs Date Time Temp Pulse Resp B/P Pulse Ox O2 Delivery O2 Flow Rate FiO2 12/11/16 04:02 Room Air 12/11/16 03:55 63 96/61 95 12/11/16 03:50 36.6 58 18 113/72 94 Room Air 12/11/16 00:02 Room Air 12/10/16 23:46 36.5 56 18 108/67 93 Room Air 12/10/16 20:00 96 Room Air 12/10/16 19:32 36.6 88 20 122/70 96 Room Air 12/10/16 16:25 36.6 61 20 118/68 93 Room Air 12/10/16 16:00 Room Air 12/10/16 12:00 Room Air 12/10/16 10:52 36.4 57 18 112/71 95 Room Air 12/10/16 08:16 36.4 62 18 113/67 95 Room Air 12/10/16 08:00 95 Room Air Physical Exam General Appearance: WD/WN, + mild distress Neck: supple, no JVD Respiratory/Chest: chest non-tender, lungs clear, normal breath sounds Cardiovascular: regular rate, rhythm, + systolic murmur Abdomen: normal bowel sounds, non tender, soft Neurologic/Psychiatric: alert, oriented x 3 Assessment and Plan A 66-year-old male with known cardiac risk factors who presents with chest pain of accelerated nature. Chest pain, negative serial troponins, echocardiogram and eventual chemical stress test 12/12 His aspirin will be maintained at 81. consult cardiology does follow him as outpt, did have some relief overnight with nitro diarrhea since bowel resection, check c diff and use lomotil depression, Prozac DVT p enoxaparin.
[2016-12-11 11:17] VITALS: BP 119/73; PULSE 56; TEMP 36.3; O2SAT 96
[2016-12-11] MEDS: DIPHENOXYLATE/ATROPINE 2.5/0.025MG TAB PO PRN ×2 (11:18→21:56)
[2016-12-11 15:40] VITALS: BP 128/75; PULSE 56; TEMP 36.5; O2SAT 94
[2016-12-11 19:38] VITALS: BP 119/70; PULSE 52; TEMP 36.6; O2SAT 95
[2016-12-11] MEDS: FLUOXETINE HCL 10 MG CAP PO SCH (21:04)
[2016-12-11] MEDS: ENOXAPARIN 40 MG/0.4 ML SYR SC SCH (21:05)
[2016-12-12 00:08] VITALS: BP 138/78; PULSE 56; TEMP 36.4; O2SAT 93
[2016-12-12] MEDS: HYDROmorphone INJ 1 MG/ML SYR IV PRN ×5 (03:08→20:45)
[2016-12-12 03:10] VITALS: BP 144/78; PULSE 58; TEMP 36.4; O2SAT 95
[2016-12-12 07:03] LABS: BUN/CREATININE RATIO 18.4 (10-20); CALCIUM 9.1 mg/dl (8.5-10.1); CREATININE 1.1 mg/dl (0.60-1.40); POTASSIUM 4.5 mmol/L (3.5-5.1)
[2016-12-12 07:22] VITALS: BP 136/76; PULSE 57; TEMP 36.5; O2SAT 94
[2016-12-12] MEDS: CEROVITE ADV FORMULA TAB PO SCH (07:50)
[2016-12-12] MEDS: ASPIRIN 81 MG ECTAB PO SCH (07:50)
[2016-12-12] MEDS ORDERED: REGADENOSON 0.4 MG/5 ML SYR ONE (10:50)
[2016-12-12 15:48] VITALS: BP 121/73; PULSE 61; TEMP 36.5; O2SAT 93
--- NOTE | 2016-12-12 16:20 | PROGRESS NOTE ---
DATE: 12/12/2016 SUBJECTIVE: The patient was seen by me this morning in his telemetry unit room. He still complains of back and chest pain. This is worse with palpation of the regions. He does feel better overall than he did a few days ago. No lightheadedness. No palpitations, dyspnea, orthopnea, PND, or syncope. He complains achiness of both upper legs. No leg swelling. No cerebrovascular complaints. He also continues to complain of a mild left upper quadrant pain. However, his appetite is good. No fevers or chills. No pulmonary complaints. Symptoms of BPH. CURRENT MEDICATIONS: Aspirin 81 mg daily, fluoxetine 10 mg at bedtime, enoxaparin 40 mg subQ at bedtime, multivitamin 1 daily, clonazepam 0.5 mg p.r.n. restless legs, p.r.n. acetaminophen, p.r.n. magnesium hydroxide, p.r.n. Zofran, p.r.n. sublingual nitroglycerin, p.r.n. MiraLax, p.r.n. Dilaudid 0.5 mg q. 4 hours, p.r.n. Dilaudid 1 mg q. 4 hours, p.r.n. Lomotil q. 5 hours. ALLERGIES AND ADVERSE DRUG REACTIONS: METRONIDAZOLE, PENICILLIN. PHYSICAL EXAMINATION: GENERAL: The patient is sitting in his bedside. He appears to be in no distress. VITAL SIGNS: This morning with oral temperature is 36.5, pulse 57, blood pressure 136/76, pulse oximetry 94% on room air. NECK: No jugular venous distention. LUNGS: Normal respiratory effort. Clear. No rales or wheezes. HEART: Regular rate and rhythm. S1, S2 normal. No S3 or S4. 1/6 systolic murmur second intercostal space. No diastolic murmur or rub. ABDOMEN: Soft. Mild left upper quadrant tenderness. Normal bowel sounds. No bruits. EXTREMITIES: No pretibial edema. No calf tenderness. CHEST WALL: Point tenderness left lower parasternal area. BACK: Point tenderness beneath the left scapula. NEUROLOGIC: Alert and oriented x3. Motor grossly intact. PSYCHIATRIC: Affect is normal. DATA: No new electrocardiogram today. Yesterday's electrocardiogram was sinus bradycardia, voltage for LVH, poor R-wave progression V1-V4. Echocardiogram this admission with LV ejection fraction 65%-70%. No regional wall motion abnormalities. Moderate concentric LVH. Type 2 left ventricular diastolic dysfunction. Labs today was sodium 139, potassium 4.5, chloride 101, carbon dioxide 31, BUN 28, creatinine 1.10, random glucose 75. Troponin I's on this admission less than 0.015 on 3 determinations. CK total was 54, MB of 0.7. ASSESSMENT: 1. Chest discomfort, atypical for myocardial ischemia and injury. Prolonged episodes of chest pain. Some of these episodes lasted for at least a few hours at a time. Cardiac enzymes negative for myocardial injury. Electrocardiogram without any acute changes. Echocardiogram with normal segmental left ventricular wall motion. 2. Musculoskeletal chest and back pain. 3. Blood pressure and heart rate under adequate control. 4. No evidence of heart failure on exam. PLAN: 1. Await results of Lexiscan pharmacologic stress test today. The scan results will be read later this afternoon by one of my [facility] colleagues. 2. Review of the patient's outpatient records showed until October he had been on lisinopril 5 mg daily, metoprolol succinate ER 75 mg daily, and Rosuvastatin 40 mg daily. For reasons that I cannot tell from the available records these were all discontinued in October. He did not have any followup visits with me in October. These medications were not discontinued by me. I will check with the patient regarding this. In light of his vascular disease, he should be on long-term statin therapy. In light of his coronary artery disease, he should be on a beta-kg and HUMBLE inhibitor therapy. 3. If the Lexiscan pharmacologic stress test does not reveal any evidence of significant myocardial ischemia, the patient could be discharged home from a cardiac standpoint.
--- NOTE | 2016-12-12 17:39 | MYOCARDIAL PERFUSION SCAN ---
PRIMARY DEEP SUBMERGENCE VEHICLE OPERATOR: Butch Gallardo JR MD PRIMARY HOSPITALIST: Aron Skinner MD TIME: 17:00 p.m. PROCEDURES: 1. Myocardial perfusion study performed in multiple views/images. 2. Lexiscan stress ECG. INDICATIONS: 1. CAD. 2. Chest pain. CONSENT: Informed written consent was obtained. ECHOCARDIOGRAM AND VITALS: Resting ECG demonstrated normal sinus rhythm at 61 beats per minute. Septal infarct. Lexiscan ECG demonstrated no significant ST changes. No arrhythmia. No chest pain reported. The patient did have back pain which has been constant throughout the hospitalization. Maximum heart rate was 96 beats per minute, representing 62% maximum predicted heart rate. Resting blood pressure was 112/71 mmHg. Maximum blood pressure was 116/70 mmHg. PROCEDURAL DETAILS: For the stress portion of the study, Lexiscan 0.4 mg was intravenously administered over 10-15 seconds followed by saline flush. This was followed by 33.2 mCi of technetium-99m Cardiolite injected intravenously at 12:10 p.m. on 12/12/2016. Thirty minutes following the injection, imaging of the heart was performed in multiple projections. For the rest portion of the study, 11 mCi of technetium-99m Cardiolite was injected intravenously at 10:35 a.m. on the same day. One hour following the injection, imaging of the heart was performed in the same projections. FINDINGS: Rotating raw imaging demonstrated no significant motion artifact. There was no significant lung uptake. Heart size appeared normal. Myocardial perfusion demonstrated moderate sized area of [id number] reduced uptake in the inferolateral wall from base to the distal two-thirds of the left ventricle as well as the base to mid lateral wall. This defect was reversible and resting imaging. There were no significant fixed defects to suggest infarct. Ejection fraction was 71%. Wall motion appeared normal. There was no significant transient ischemic dilation. IMPRESSION: 1. Abnormal myocardial perfusion study suggesting circumflex territory ischemia involving the inferolateral and lateral wall as noted above. 2. Normal wall motion. 3. Hyperdynamic left ventricular systolic function. Ejection fraction 71%. 4. No chest pain reported. 5. No arrhythmia. 6. Nondiagnostic Lexiscan ECG. 7. Dr. Gallardo, primary referral rn, was immediately notified of the results at the time of interpretation.
--- NOTE | 2016-12-12 18:43 | DIAGNOSTIC IMAGING REPORT ---
CT THORACIC SPINE WITHOUT CT DOSE: 1336.39 mGy.cm CLINICAL HISTORY: Severe thoracic spine pain. Possible fracture. TECHNIQUE: Helical images were acquired in the transverse plane. Sagittal and axial reformatted images were acquired. COMPARISON STUDY: CT scan dated 11-29 FINDINGS: There are mild multilevel degenerative changes present. No paraspinal masses are visualized. No acute fractures are visualized. No destructive lesions are visualized. There is mild dependent atelectatic change. There is mild apical emphysema. There is a 3 mm right upper lobe pulmonary nodule. In retrospect this was present on the prior November 14, 2016 CT scan. IMPRESSION: 1. Mild multilevel degenerative changes 2. No acute fractures 3. Stable 3 mm right upper lobe pulmonary nodule 4. No destructive lesions are visualized. Electronically signed by: Hans Morin M.D. 12/12/2016 6:41 PM Dictated Date/Time: 12/12/2016 6:37 PM
--- NOTE | 2016-12-12 18:48 | DIAGNOSTIC IMAGING REPORT ---
CT LUMBAR SPINE WITHOUT CT DOSE: CLINICAL HISTORY: Severe lower back pain TECHNIQUE: Helical images were acquired in transverse plane. Reformatted sagittal and coronal images were reviewed. CONTRAST: No contrast was administered COMPARISON STUDY: None. FINDINGS: L1-2 level: There is no evidence of significant disc bulge or focal herniation. There is no evidence of spinal or foraminal stenosis. L2-3 level: There is a minimal circumferential disc bulge. There is no significant spinal or foraminal stenosis. L3-4 level: There is a mild circumferential disc bulge. There is mild spinal stenosis. There is no significant foraminal narrowing. L4-5 level: There is a mild circumferential disc bulge. There is mild spinal stenosis. There is no significant foraminal narrowing. L5-S1 level: There is a small left paracentral disc protrusion. There is no significant foraminal narrowing. There is a 3.7 cm infrarenal abdominal aortic aneurysm. No acute fractures or subluxations are visualized. No destructive lesions are evident. IMPRESSION: 1. No acute fractures or subluxations 2. Small left paracentral disc protrusion at the L5-S1 level. 3. Mild circumferential disc bulges at the L3-4, and L4-5 levels with mild spinal stenosis 4. 3.7 cm infrarenal abdominal aortic aneurysm Electronically signed by: Hans Morin M.D. 12/12/2016 6:46 PM Dictated Date/Time: 12/12/2016 6:43 PM
[2016-12-12 19:47] VITALS: BP 125/75; PULSE 59; TEMP 36.7; O2SAT 93
[2016-12-12] MEDS: FLUOXETINE HCL 10 MG CAP PO SCH (20:43)
[2016-12-12] MEDS: ENOXAPARIN 40 MG/0.4 ML SYR SC SCH (20:44)
--- NOTE | 2016-12-12 21:28 | Progress Note ---
Subjective Date of Service: Dec 12, 2016. Subjective Pt evaluation today including: conversation w/ patient, physical exam, chart review, lab review, review of studies (nuclear stress test ), conversation w/ project consultant (cardiology) Pain: back - upper, in thoracic region; starts at spine, radiates outward b/l PO Intake: normal Voiding: no voiding problems tele w/o any dysrhythmia his main complaint is that of back pain worse when laying down somewhat worse w/ activity he has some associated numbness of the thoracic region; he also mentions the numbness goes DOWN the back and into both legs and down each leg (?) pain in back started after a fall several weeks ago he denies use of narcotics on a chronic basis denies chest pain Problem List Medical Problems: (1) Abdominal pain Status: Acute (2) Chest pain Status: Acute (3) Chest pain Status: Acute (4) Colitis Status: Acute (5) Dehydration Status: Acute (6) Dehydration Status: Acute (7) Flank pain Status: Acute (8) Headache Status: Acute (9) History of aortic aneurysm Status: Acute (10) Left sided abdominal pain Status: Acute (11) Nasal bleeding Status: Acute (12) Non-cardiac chest pain Status: Acute (13) Pneumonia Status: Acute (14) Precordial chest pain Status: Acute (15) Precordial chest pain Status: Acute (16) Right hand weakness Status: Acute (17) Transient weakness of left leg Status: Acute Review of Systems Respiratory: No dyspnea on exertion, No shortness of breath Cardiac: No chest pain Abdomen: No pain Objective Vital Signs Date Time Temp Pulse Resp B/P Pulse Ox O2 Delivery O2 Flow Rate FiO2 12/12/16 20:00 Room Air 12/12/16 19:47 36.7 59 18 125/75 93 Room Air 12/12/16 16:00 Room Air 12/12/16 15:48 36.5 61 16 121/73 93 Room Air 12/12/16 13:15 Room Air 12/12/16 08:00 Room Air 12/12/16 07:22 36.5 57 16 136/76 94 Room Air 12/12/16 04:00 Room Air 12/12/16 03:10 36.4 58 20 144/78 95 Room Air 12/12/16 00:08 36.4 56 18 138/78 93 Room Air 12/12/16 00:02 Room Air Physical Exam General Appearance: no apparent distress ENT: pharynx normal Neck: no JVD Respiratory/Chest: chest non-tender, lungs clear, no respiratory distress, no accessory muscle use Cardiovascular: regular rate, rhythm, no gallop, + systolic murmur (1/6 LSB) Abdomen: normal bowel sounds, non tender, soft, no organomegaly, + pertinent finding (scar, LLQ) Extremities: no pedal edema Neurologic/Psychiatric: alert, oriented x 3, + pertinent finding (strength 5/5 bilateral legs - hip flexion, ankle flexion/extension ) Comments: back - no tenderness over c-spine; mild tenderness to palpation over thoracic spine; some of this pain radiates laterally from the spine towards the axillae; pain is worst in the paraspinal areas of high thoracic segments extending to just inferior to the scapulae Laboratory Results Last 24 Hours Test 12/12/16 05:45 Sodium Level 139 mmol/L Potassium Level 4.5 mmol/L Chloride Level 101 mmol/L Carbon Dioxide Level 31 mmol/L Anion Gap 7.0 mmol/L Blood Urea Nitrogen 20 mg/dl Creatinine 1.10 mg/dl Est Creatinine Clear Calc Drug Dose 72.5 ml/min Estimated GFR () 80.6 Estimated GFR (Non- 69.6 BUN/Creatinine Ratio 18.4 Random Glucose 75 mg/dl Calcium Level 9.1 mg/dl Assessment and Plan 66yo male with: 1. chest pain - in patient with known CAD and prior [place] - nuclear stress test is positive. cardiac cath by Dr. Gallardo is planned for this week. cont aspirin. beta kg had been inadvertantly stopped in the past; to be resumed today. cont statin. 2. thoracic spine pain and numbness - CT thoracic spine, r/o compression Fx, r/ o cord compromise, etc. Try lidoderm patches. Has had extensive w/u for this recently including CTA chest, c-spine CT, x-rays , etc. All of these studies have been negative for specific etiology. 3. h/o TIA and stroke - cont aspirin for secondary stroke prevention. 4. h/o diverticular abscess s/p colostomy with ultimate reversal - noted. No issues. 5. DVT proph - lovenox daily. . Continued [facility] stay due to: other (need for cardiac cath ) Discharge planning: home
[2016-12-12] MEDS: LIDODERM (LIDOCAINE) PATCH 5% TD SCH (22:39)
[2016-12-12 23:32] VITALS: BP 120/79; PULSE 60; TEMP 36.5; O2SAT 93
[2016-12-13] VITALS (7 sets, daily range): BP systolic 109–120; BP diastolic 52–73; PULSE 50–69; TEMP 36.5–36.8; O2SAT 91–98
[2016-12-13] MEDS: HYDROmorphone INJ 1 MG/ML SYR IV PRN ×6 (01:05→22:20)
[2016-12-13] MEDS: METOPROLOL SUCC 25MG EXT REL TAB PO SCH (08:04)
[2016-12-13] MEDS: CEROVITE ADV FORMULA TAB PO SCH (08:04)
[2016-12-13] MEDS: ASPIRIN 81 MG ECTAB PO SCH (08:04)
[2016-12-13] MEDS: ROSUVASTATIN CALCIUM 20 MG TAB PO SCH (08:04)
[2016-12-13] MEDS: NSS + 20MEQ KCL 1000ML 1,000 ML IV SCH ×2 (10:56→19:19)
--- NOTE | 2016-12-13 10:58 | PROGRESS NOTE ---
DATE: 12/13/2016 The patient was seen by me this morning in his telemetry unit room. He still complains of mild left subscapular pain and left chest pain. It is improved from yesterday. It is constant. It improves with intravenous analgesics. No dyspnea. No palpitations, lightheadedness, orthopnea or syncope. No peripheral edema. No bleeding complaints. He feels that he is dehydrated. He complained that his urine is dark in color. CURRENT MEDICATIONS: Rosuvastatin 40 mg daily, metoprolol succinate ER 25 mg daily, Lidoderm patch 5% three patches daily, Dilaudid 1 mg IV q. 3 hours, Lomotil 1 tab q. 6 hours p.r.n., aspirin 80 mg daily, multivitamin 1 daily, fluoxetine 10 mg at bedtime, enoxaparin 40 mg subQ at bedtime, p.r.n. clonazepam, p.r.n. acetaminophen, p.r.n. milk of magnesia, p.r.n. Zofran, p.r.n. sublingual nitroglycerin, p.r.n. MiraLax. ALLERGIES AND ADVERSE DRUG REACTIONS: METRONIDAZOLE, PENICILLIN. PHYSICAL EXAMINATION: VITAL SIGNS: This morning with oral temperature 36.8, pulse 54, blood pressure 109/52, pulse oximetry room air 98%. NECK: No jugular venous distention. LUNGS: Normal respiratory effort. Clear. No rales or wheezes. HEART: Regular rhythm. 1/6 systolic murmur second intercostal space and left upper sternal border. No diastolic murmur or rub. S1, S2 normal. No S3 or S4. ABDOMEN: Soft. Nontender. No palpable masses or organomegaly. No bruits. EXTREMITIES: No pretibial edema. PULSES: Radial, dorsalis pedis, posterior tibial pulses are palpable bilaterally. MUSCULOSKELETAL: Tenderness to palpation over the left side of chest and beneath the left scapula. NEUROLOGICAL: Alert and oriented x3. Motor grossly intact. PSYCHIATRIC: Affect is normal. DATA: Lexiscan myocardial perfusion yesterday with evidence of ischemia in the inferolateral and lateral buckley. Normal resting LV wall motion. Hyperdynamic resting LV systolic function. Thoracic CT scan performed yesterday with mild multilevel degenerative changes. No acute fractures. No disruptive lesions. LUMBAR CT scan performed yesterday with small disc protrusion at L5-S1 level. Disc bulges at L3-L4 and L4-L5. Mild spinal stenosis. A 3.7 cm infrarenal abdominal aortic aneurysm. ASSESSMENT: 1. Known coronary artery disease. Remote history of RCA and left circumflex stents. Lexiscan and myocardial perfusion scan performed yesterday with evidence of ischemia in the left circumflex distribution. Despite this finding, I do not suspect that myocardial ischemia is a factor in his recurrent and prolonged episodes of chest and back discomfort. His cardiac enzymes were negative for myocardial injury. Imaging of the heart without evidence of any wall motion abnormalities. Electrocardiograms without any diagnostic ischemic changes. Sinus bradycardia. Monitor history over the past 24 hours and reviewed by me shows sinus rhythm, sinus bradycardia, rare premature ventricular beat. 2. Blood pressure under good control. 3. Dyslipidemia. For some reason, the patient's rosuvastatin had been discontinued by his caregivers at [facility] in [place] last year. It was not resumed. No history of adverse reactions to statins. In light of his diffuse vascular disease, maximum dose statin therapy is indicated for his dyslipidemia. 4. No cerebrovascular or peripheral vascular complaints. 5. Musculoskeletal-type chest and back discomfort. PLAN: 1. Cardiac catheterization on 12/14/2016. This is in light of his abnormal myocardial perfusion scan results. The procedure, risks and benefits of cardiac catheterization and coronary intervention were extensively discussed with the patient. He is agreeable to the procedure. 2. N.p.o. after 12:00 midnight. 3. Start intravenous fluids today. The patient is concerned that he is dehydrated. His urine at the bedside was dark in color. This would suggest dehydration. 4. Continue low dose metoprolol. Hold for heart rate 50 or less. 5. The patient has been restarted on rosuvastatin 40 mg daily. 6. Further recommendations and plans will be based upon the results of the cardiac catheterization procedure tomorrow. [facility]
[2016-12-13] MEDS: ONDANSETRON INJ 2 MG/ML 2 ML VIAL IV PRN (19:19)
[2016-12-13] MEDS: ENOXAPARIN 40 MG/0.4 ML SYR SC SCH (20:56)
[2016-12-13] MEDS: FLUOXETINE HCL 10 MG CAP PO SCH (20:57)
[2016-12-13] MEDS: LIDODERM (LIDOCAINE) PATCH 5% TD SCH (20:58)
--- NOTE | 2016-12-13 22:06 | Progress Note ---
Subjective Date of Service: Dec 13, 2016. Subjective Pt evaluation today including: conversation w/ patient, physical exam, chart review, lab review, conversation w/ learning and development consultant (cardiology - Dr. Gallardo), review of inpatient medication list Pain: back pain improved today; actually slept decently last night PO Intake: modestly decreased Voiding: no voiding problems tele overnight normal no chest pain no sob no suarez no orthopnea Problem List Medical Problems: (1) Abdominal pain Status: Acute (2) Chest pain Status: Acute (3) Chest pain Status: Acute (4) Colitis Status: Acute (5) Dehydration Status: Acute (6) Dehydration Status: Acute (7) Flank pain Status: Acute (8) Headache Status: Acute (9) History of aortic aneurysm Status: Acute (10) Left sided abdominal pain Status: Acute (11) Nasal bleeding Status: Acute (12) Non-cardiac chest pain Status: Acute (13) Pneumonia Status: Acute (14) Precordial chest pain Status: Acute (15) Precordial chest pain Status: Acute (16) Right hand weakness Status: Acute (17) Transient weakness of left leg Status: Acute Review of Systems Constitutional: No fever Respiratory: No cough, No wheezing Abdomen: No nausea, No pain, No vomiting Objective Vital Signs Date Time Temp Pulse Resp B/P Pulse Ox O2 Delivery O2 Flow Rate FiO2 12/13/16 21:55 36.6 54 18 111/63 91 Room Air 2.0 12/13/16 20:00 Room Air 12/13/16 19:29 36.6 54 18 111/63 91 Room Air 12/13/16 16:00 Room Air 12/13/16 15:24 36.6 59 18 120/73 96 12/13/16 12:00 Room Air 12/13/16 11:32 36.5 68 18 118/62 98 12/13/16 08:00 Room Air 12/13/16 07:25 36.8 54 16 109/52 98 12/13/16 04:00 Room Air 12/13/16 03:00 36.7 69 15 119/72 93 Room Air 12/13/16 00:00 Room Air 12/12/16 23:32 36.5 60 17 120/79 93 Room Air Physical Exam General Appearance: no apparent distress ENT: pharynx normal Neck: no JVD Respiratory/Chest: lungs clear, no respiratory distress, no accessory muscle use Cardiovascular: regular rate, rhythm, no gallop, no murmur Abdomen: normal bowel sounds, non tender, soft, no organomegaly Extremities: no pedal edema Comments: musculo - back - less tenderness to palpation over thoracic paraspinal areas today Assessment and Plan 66yo male with: 1. chest pain - in patient with known CAD and prior [place] - nuclear stress test is positive. cardiac cath by Dr. Gallardo - TOMORROW AM; NPO after MN tonight cont aspirin and beta kg. cont statin. 2. thoracic spine pain and numbness - CT thoracic spine and CT lumbar spine without cord compromise or compression fracture. Certainly small thoracic nerve compression could be missed and MRI would be needed to look at such. However, his pain is much improved w/ lidoderms. If cath is ok would start NSAID in addition to lidoderm. 3. h/o TIA and stroke - cont aspirin for secondary stroke prevention. 4. h/o diverticular abscess s/p colostomy with ultimate reversal - noted. No issues. 5. DVT proph - lovenox daily. 6. FEN - fluids added by cardiology- agree w/ such. BMP in am. NPO after MN tonight. In my clinical judgment this beneficiary meets acute admission criteria, established by CMS, that includes being hospitalized through two midnights. . Continued [facility] stay due to: other (need for cardiac cath ) Discharge planning: home
[2016-12-13] MEDS: CLONAZEPAM 0.5 MG TAB PO PRN (23:43)
[2016-12-14] VITALS (13 sets, daily range): BP systolic 107–149; BP diastolic 61–79; PULSE 48–84; TEMP 36.5–36.9; O2SAT 93–96
[2016-12-14] MEDS: HYDROmorphone INJ 1 MG/ML SYR IV PRN ×5 (03:13→22:08)
[2016-12-14] MEDS: NSS + 20MEQ KCL 1000ML 1,000 ML IV SCH ×3 (06:20→19:11)
[2016-12-14 06:33] LABS: BUN/CREATININE RATIO 25.8 (10-20); CALCIUM 8.6 mg/dl (8.5-10.1); CREATININE 0.95 mg/dl (0.60-1.40); POTASSIUM 4.5 mmol/L (3.5-5.1)
[2016-12-14] MEDS: CEROVITE ADV FORMULA TAB PO SCH (07:58)
[2016-12-14] MEDS: ROSUVASTATIN CALCIUM 20 MG TAB PO SCH (07:58)
[2016-12-14] MEDS: ASPIRIN 81 MG ECTAB PO SCH (07:58)
[2016-12-14] MEDS: METOPROLOL SUCC 25MG EXT REL TAB PO SCH (07:59)
--- NOTE | 2016-12-14 10:18 | Procedure Note ---
Pre-Mod Sedation Assessment General Date of Moderate Sedation: Dec 14, 2016. Vital Signs: Vital Signs Past 12 Hours Date Time Temp Pulse Resp B/P Pulse Ox O2 Delivery O2 Flow Rate FiO2 12/14/16 08:39 96 Room Air 12/14/16 08:00 Room Air 12/14/16 07:20 36.5 51 14 110/68 94 Room Air 12/14/16 04:00 Room Air 12/14/16 03:37 36.9 56 18 108/65 94 Room Air 12/13/16 23:59 Room Air 12/13/16 23:15 36.6 50 18 113/71 94 Room Air Review Cardiovascular: regular rate, rhythm, no JVD, no murmur, normal peripheral pulses Abdomen: normal bowel sounds, soft, + tenderness (LUQ( chronic)) Lungs: lungs clear Pre-Sedation Airway Assessment Oral Cavity: Dentures Able to Visualize Vocal Cords: No Short Thick Neck: No Hx of Sleep Apnea: No Smoking Status: Current Every Day Smoker Mallampati Classification: Class III ASA Classification: Class II Procedure Planning Contraindications-for Mod Sed: None Yes Notes The planned sedation has been discussed with the patient and consent obtained. I have identified the patient, determined the appropriateness of sedation and have assessed the patient immediately prior to the procedure. All medicine(s) and interventions are by my order.
[2016-12-14] MEDS ORDERED: NiCARDipine HCL INJ 2.5 MG/ML 10 ML AMP ONE (10:20)
[2016-12-14] MEDS ORDERED: HEPARIN SOD (PORCINE) 1000 UNIT/ML 10 ML VIAL ONE (10:20)
[2016-12-14] MEDS ORDERED: NITROGLYCERIN/D5W 100MCG/ML 20ML SYR ONE (10:21)
[2016-12-14] MEDS ORDERED: MIDAZOLAM HCL 1 MG/ML 2ML VIAL ONE ×2 (10:21→10:32)
[2016-12-14] MEDS ORDERED: FENTANYL CITRATE INJ 50 MCG/1 ML 2 ML VIAL ONE ×2 (10:22→10:32)
[2016-12-14] MEDS ORDERED: EPTIFIBATIDE 0.75 MG/ML 75MG VIAL IV ONE (10:54)
[2016-12-14] MEDS ORDERED: EPTIFIBATIDE 2 MG/ML 10 ML VIAL IV ONE (10:54)
[2016-12-14] MEDS ORDERED: CLOPIDOGREL BISULFATE 300 MG TAB PO ONE (12:04)
[2016-12-14] MEDS ORDERED: ATROPINE SULFATE 0.1 MG/ML 5ML SYR IV PRN (12:15)
[2016-12-14] MEDS ORDERED: EPTIFIBATIDE BOLUS / DRIP IV ONE (12:15)
[2016-12-14] MEDS ORDERED: ONDANSETRON INJ 2 MG/ML 2 ML VIAL IV PRN (12:15)
--- NOTE | 2016-12-14 12:37 | Procedure Note ---
Post-Mod Sedation Assessment General Date of Moderate Sedation Dec 14, 2016. Vital Signs: Vital Signs Past 12 Hours Date Time Temp Pulse Resp B/P Pulse Ox O2 Delivery O2 Flow Rate FiO2 12/14/16 12:15 62 16 117/72 94 Room Air 12/14/16 12:00 58 16 103/70 97 Nasal Cannula 3 12/14/16 08:39 96 Room Air 12/14/16 08:00 Room Air 12/14/16 07:20 36.5 51 14 110/68 94 Room Air 12/14/16 04:00 Room Air 12/14/16 03:37 36.9 56 18 108/65 94 Room Air Review - Discharge Criteria Vital Signs Stable: Yes Alert/Oriented/Conversant: Yes Returned to Baseline Mental St: Yes Nausea Absent/Minimal: Yes Pain/Discomfort/Absent/Minimal: No (Complained of back pain pre,during,and post bprocedure. Has been present since admission) Normal/Baseline Respirations: Yes Active Bleeding?: No Pt Received D/C Instructions: N/A Prescriptions Given: None Specific Proced. D/C Criteria Distal Pulses Present (Cardiac: Yes Groin site assessed-Card Cath: N/A Voided Prior To Discharge: N/A Discharged Patients Adult Escort/Transportation: N/A
[2016-12-14 12:49] LABS: BASO % 0.3 %; BASO ABS # 0.02 K/uL (0-0.2); EOS % 2.5 %; HEMATOCRIT 42.4 % (42-52); LYMPH % 22.9 %; LYMPH ABS # 1.37 K/uL (1.2-3.4); MEAN CELL VOLUME 87.2 fL (80-100); MEAN CORPUSCULAR HEMOGLOBIN 29.8 pg (25-34); NEUT % 69.3 %; PLATELET COUNT 139 K/uL (130-400); RED BLOOD COUNT 4.86 M/uL (4.7-6.1); WHITE BLOOD COUNT 5.99 K/uL (4.8-10.8)
[2016-12-14 13:04] LABS: COMPLETE YES; MEAN CORPUSCULAR HGB CONC 34.2 g/dl (32-36)
--- NOTE | 2016-12-14 13:34 | Cardiac Catheterization ---
Procedure Note Procedure Date Dec 14, 2016. Pre-Procedure Diagnosis Positive Stress Test, CAD AUC Score 7 Post-Procedure Diagnosis Moderate CAD, Severe CAD, Successful PCI, Elevated Intracardiac Pressures Procedure(s) Performed Coronary Angiography, Left Heart Cath, PTCA, Drug Eluting Stent [employer] Dr. Gallardo [employer](s) MARTIN Matt Estimated Blood Loss 35 ml Medication(s) Clopidogrel, Heparin, Integrilin, Nicardipine, Versed, Lidocaine 1% Summary of Findings Cath site: 6 Fr Slender Gl[place]heath right radial artery. Hemostasis: Terumo TR band. Complications: none. Hemodynamics Rest Ao: 121/57/84 mm Hg Final Ao: 121/56/83 mm Hg LV: 103/19 mm Hg Recommendations Medical therapy and/or Counseling, PCI without planned CABG Specimens None Radiation Exposure (mGy) 1813 Contrast (mls) 290 ml Visipaque Fluids (cc crystalloids) 164 Anesthesia IV versed,fenatnyl Procedural Complication(s) None Disposition PCU ACC Data Cardiac Status Clinical evaluation leading to the procedure CAD Presntation: Sx unlikely to be ischemic, Positive Stress Test Anginal Classification: CCS IV Heart Failure: No Cardiogenic Shock w/in 24Hrs: No Cardiac Arrest w/in 24Hrs: No Imaging studies past 6 months: Yes Stress studies past 6 months: Yes Standard Exercise Stress Test: No Stress Echocardiogram: No Stress Testing w/SPECT MPI: Yes - Positive, Risk/Extent of Ischemia ( Intermediate) Cardiac CTA: No Coronary Anatomy Dominant: Co-dominant Left Main (% Stenosis): Normal LAD (% Stenosis): Proximal (10), Mid D1 (% Stenosis): Normal D2 (% Stenosis): Proximal (10), Mid (20) Circumflex (% Stenosis): Proximal (20), Mid (20,75, diffuse in stent 10-20) OM1 (% Stenosis): Ostial (50) OM2 (% Stenosis): Normal L PL1 (% Stenosis): Proximal (10-20), Mid (75), Distal (20) RCA (% Stenosis): Proximal (0-10), Mid (10-20 in stent), Distal (0-10) R PDA (% Stenosis): Normal R PL1 (% Stenosis): Normal R PL2 (% Stenosis): Normal Left Ventricular Angiography EF (%): NA Diagnostic Physician's Name: Butch Gallardo M.D. Status: Elective Closure Device Percutaneous Entry Location: Radial Closure Device: Radial Band Recommendations: Medical therapy and/or Counseling, PCI without planned CABG PCI Indication: + Stress Test Lesion Segment Name: Mid left posterolateral Culprit Artery: Yes Stenosis Prior to Rx (%): 75 Chronic Total Occlusion: No IVUS: No FFR: No Pre-Procedure SANTHOSH Flow: 3 Previously Treated Lesion: No Lesion Complexity: Non-High/Non-C Lesion Length (mm): 12 Thrombus Present: No Bifurcation Lesion: No Guidewire Across Lesion: Yes Guidewire: Stenosis Post-Procedure (%): 0-10 Post-Procedure SANTOHSH Flow: 3 Device(s) Deployed: Yes Type of Device(s): Medtronic Resolute 2.5 X 18 mm KASSANDRA Lesion #2 Segment Name: Mid left circumflex Culprit Artery: Yes Stenosis Prior to Rx (%): 75 Chronic Total Occlusion: No IVUS: No FFR: No Pre-Procedure SANTHOSH Flow: 3 Lesion Complexity: Non-High/Non-C Lesion Length (mm): 12 Thrombus Present: No Bifurcation Lesion: No Guidewire Across Lesion: Yes Guidewire: Post-Procedure SANTHOSH Flow: 3 Device(s) Deployed: Yes (4 X 15 mm Resolute KASSANDRA. Mid segment post dilated with 4.5X 8 mm NC balloon) Type of Device(s): Medtronic Resolute 4 X 15 mm Resolute KASSANDRA. Post dilated with 4.5 X 8 mm NC balloon. Intraprocedure Events Significant Dissection: No Perforation: No
[2016-12-14] MEDS: EPTIFIBATIDE INJ 75 MG PREMIXED IV SCH ×2 (17:48→21:55)
[2016-12-14] MEDS: FLUOXETINE HCL 10 MG CAP PO SCH (19:13)
[2016-12-14] MEDS: ENOXAPARIN 40 MG/0.4 ML SYR SC SCH (19:14)
--- NOTE | 2016-12-14 20:26 | PROGRESS NOTE ---
DATE: 12/14/2016 HISTORY OF PRESENT ILLNESS: The patient was seen by me this morning and this evening. He still complains of back discomfort. This has been almost constant since admission. He states that since undergoing coronary intervention this afternoon to his left circumflex coronary artery he has had no further complaints of chest pain. This morning, he was still complaining of episodes of left-sided chest pain. This evening, he has no orthopnea or PND. No dyspnea. No palpitations or lightheadedness. He thinks he feels less fatigued than prior to the stent procedure. No pain at his right radial artery catheterization site. No cerebrovascular complaints. No peripheral vascular complaints. No abdominal discomfort. No bleeding complaints. No fevers or chills. No pulmonary complaints. No urinary complaints today. CURRENT MEDICATIONS: Clopidogrel 75 mg daily a.m. (the patient was given a 600 mg oral loading dose post-PCI today), lisinopril 2.5 mg daily a.m.(to start tomorrow), intravenous Integrilin 2 mcg per kilogram per minute (to run for 18 hours post-PCI), rosuvastatin 40 mg daily, metoprolol succinate ER 25 mg daily, Lidoderm patch and several p.r.n. medications. ALLERGIES AND ADVERSE DRUG REACTIONS: METRONIDAZOLE AND PENICILLINS. PHYSICAL EXAMINATION: GENERAL: The patient is sitting up in his bed this evening. No distress. VITAL SIGNS: With oral temperature 36.5, pulse 49, blood pressure 119/75, pulse oximetry on room air 95%. NECK: No jugular venous distention. LUNGS: Normal respiratory effort. Clear. No rales or wheezes. BACK: Tenderness to palpation over the back. HEART: Regular rhythm. Decreased rate. S1 and S2 are normal. No S3 or S4. Has 1/6 systolic murmur second right intercostal space. ABDOMEN: Soft. Nontender. No palpable masses or organomegaly. EXTREMITIES: Right radial catheterization site without bleeding or hematoma. Right radial pulse palpable. No evidence of arterial insufficiency in right hand. NEUROLOGIC: Alert and oriented x3. Motor grossly intact. PSYCHIATRIC: Affect is normal. DATA: Electrocardiogram performed post-PCI reveals sinus bradycardia with first degree AV block. Poor R-wave progression V1-V3. No acute ST or T-wave abnormalities. Post-PCI and Integrilin. CBC with WBC 5.99, hemoglobin 14.5, platelet count 139. Metabolic profile this morning with sodium 141, potassium 4.5, chloride 107, carbon dioxide 28, BUN 25, creatinine 0.95, random glucose 82. Today, the patient underwent diagnostic cardiac catheterization via a 6-German sheath in the right radial artery. This revealed at least 75% stenosis in the early mid left circumflex and in the mid left posterolateral artery. No other significant coronary artery disease. Stents were deployed in both the left circumflex posterolateral artery and in the mid left circumflex. No significant residual stenosis. ASSESSMENT: 1. No post-percutaneous coronary intervention anginal type chest discomfort. He has actually had no chest discomfort since the percutaneous coronary intervention procedure. He still continues to complain of back discomfort. He has point tenderness on his back. The back discomfort is consistent with musculoskeletal chest pain. 2. No evidence of vascular complications at the right radial catheterization site. 3. No bleeding complaints on Integrilin. Platelet count has decreased slightly since Integrilin was administered. This is not unexpected. 4. Prerenal azotemia on this morning's laboratories. The patient is still on intravenous fluids. We will continue intravenous fluids overnight. 5. No signs or symptoms of congestive heart failure. PLAN: 1. Intravenous Integrilin for at least 18 hours post-PCI. 2. The patient was given a 600 mg loading dose of clopidogrel post-PCI. 3. He should remain on dual antiplatelet therapy with aspirin 81 mg daily and clopidogrel 75 mg daily for a minimum of 6 months. Ideally for 1 year. 4. Low dose beta kg and lisinopril. 5. Rosuvastatin 40 mg daily. 6. Followup visit with me in 2-4 weeks. 7. The patient was instructed not to lift any objects greater than 10 pounds for the next 3 days with his right hand. He was instructed not to perform any activities with repetitive motion involving his right hand and wrist over the next 72 hours. 8. From a cardiac standpoint, the patient could be discharged home tomorrow morning. This is provided he has no cardiovascular issues overnight. 9. I will be out of the hospital at an outpatient location tomorrow. If there are any questions or problems, please contact Dr. Micah Kelly tomorrow. DAGOBERTO
--- NOTE | 2016-12-14 21:20 | Progress Note ---
Subjective Date of Service: Dec 14, 2016. Subjective Pt evaluation today including: conversation w/ patient, physical exam, chart review, lab review, review of studies (cardiac cath), conversation w/ client consultant (cardiology) Pain: no chest pain, but having ongoing intermittent back pain - same location PO Intake: normal Voiding: no voiding problems tele w/o dysrhythmia overnight feels good overall had cath today with deployment of 2 stents in left circumflex artery I saw him post-cath and his only complaint was that of back pain, mainly left- sided Problem List Medical Problems: (1) Abdominal pain Status: Acute (2) Chest pain Status: Acute (3) Chest pain Status: Acute (4) Colitis Status: Acute (5) Dehydration Status: Acute (6) Dehydration Status: Acute (7) Flank pain Status: Acute (8) Headache Status: Acute (9) History of aortic aneurysm Status: Acute (10) Left sided abdominal pain Status: Acute (11) Nasal bleeding Status: Acute (12) Non-cardiac chest pain Status: Acute (13) Pneumonia Status: Acute (14) Precordial chest pain Status: Acute (15) Precordial chest pain Status: Acute (16) Right hand weakness Status: Acute (17) Transient weakness of left leg Status: Acute Review of Systems Respiratory: No cough, No shortness of breath Cardiac: No chest pain, No orthopnea Abdomen: No pain Objective Vital Signs Date Time Temp Pulse Resp B/P Pulse Ox O2 Delivery O2 Flow Rate FiO2 12/14/16 20:08 36.5 84 20 149/74 93 Nasal Cannula 4.0 12/14/16 20:00 Room Air 12/14/16 19:22 36.5 51 18 110/70 95 Room Air 12/14/16 16:00 Room Air 12/14/16 15:05 36.5 49 18 119/75 95 Room Air 2.0 12/14/16 14:45 49 18 119/75 95 Room Air 12/14/16 14:15 49 18 107/61 96 Room Air 12/14/16 14:00 49 18 124/77 95 Room Air 12/14/16 13:30 48 16 136/72 95 Room Air 12/14/16 13:00 49 18 130/79 95 Nasal Cannula 2.0 12/14/16 13:00 Nasal Cannula 2.0 12/14/16 12:45 49 18 128/78 94 Room Air 12/14/16 12:15 62 16 117/72 94 Room Air 12/14/16 12:00 58 16 103/70 97 Nasal Cannula 3 12/14/16 08:39 96 Room Air 12/14/16 08:00 Room Air 12/14/16 07:20 36.5 51 14 110/68 94 Room Air 12/14/16 04:00 Room Air 12/14/16 03:37 36.9 56 18 108/65 94 Room Air 12/13/16 23:59 Room Air 12/13/16 23:15 36.6 50 18 113/71 94 Room Air 12/13/16 21:55 36.6 54 18 111/63 91 Room Air 2.0 Physical Exam General Appearance: no apparent distress ENT: pharynx normal Neck: no JVD Respiratory/Chest: lungs clear, no respiratory distress, no accessory muscle use Cardiovascular: regular rate, rhythm, no gallop, no murmur Abdomen: normal bowel sounds, non tender, soft, no organomegaly Extremities: no pedal edema Comments: musculo - back - tender mid scapular region on left w/ palpation Laboratory Results Last 24 Hours Test 12/14/16 05:10 12/14/16 10:57 12/14/16 11:18 12/14/16 11:36 Sodium Level 141 mmol/L Potassium Level 4.5 mmol/L Chloride Level 107 mmol/L Carbon Dioxide Level 28 mmol/L Anion Gap 6.0 mmol/L Blood Urea Nitrogen 25 mg/dl Creatinine 0.95 mg/dl Est Creatinine Clear Calc Drug Dose 84.0 ml/min Estimated GFR () 96.3 Estimated GFR (Non- 83.1 BUN/Creatinine Ratio 25.8 Random Glucose 82 mg/dl Calcium Level 8.6 mg/dl Vitamin B12 Level 383 pg/mL Kaolin Activated Coagulation Time 533 SECONDS > 1000 SECONDS 332 SECONDS Test 12/14/16 12:45 White Blood Count 5.99 K/uL Red Blood Count 4.86 M/uL Hemoglobin 14.5 g/dL Hematocrit 42.4 % Mean Corpuscular Volume 87.2 fL Mean Corpuscular Hemoglobin 29.8 pg Mean Corpuscular Hemoglobin Concent 34.2 g/dl Platelet Count 139 K/uL Mean Platelet Volume 10.0 fL Neutrophils (%) (Auto) 69.3 % Lymphocytes (%) (Auto) 22.9 % Monocytes (%) (Auto) 5.0 % Eosinophils (%) (Auto) 2.5 % Basophils (%) (Auto) 0.3 % Neutrophils # (Auto) 4.15 K/uL Lymphocytes # (Auto) 1.37 K/uL Monocytes # (Auto) 0.30 K/uL Eosinophils # (Auto) 0.15 K/uL Basophils # (Auto) 0.02 K/uL RDW Standard Deviation 41.5 fL RDW Coefficient of Variation 13.0 % Immature Granulocyte % (Auto) 0.0 % Immature Granulocyte # (Auto) 0.00 K/uL Assessment and Plan 66yo male with: 1. CAD, with recent chest pain - s/p cardiac cath today by Dr. Gallardo w/ deployment of 2 stents in the Left Circumflex Artery. He will continue statin, asa, BB, plavix. 2. thoracic spine pain and numbness - CT thoracic spine and CT lumbar spine without cord compromise or compression fracture. Certainly small thoracic nerve compression could be missed and MRI would be needed to look at such. Does he have element of subscapularis bursitis? I have asked Dr. Bustamante to see him in light of severe, ongoing pain. 3. h/o TIA and stroke - cont aspirin for secondary stroke prevention. 4. h/o diverticular abscess s/p colostomy with ultimate reversal - noted. No issues. 5. DVT proph - lovenox daily. 6. FEN - BMP stable. Cont IVF but can reduce rate to 75/hr. Diet as tolerated. home tomorrow if cleared by cardiology and orthopedic eval is done? Discharge planning: home
[2016-12-14] MEDS: LIDODERM (LIDOCAINE) PATCH 5% TD SCH (21:49)
[2016-12-14] MEDS: CLONAZEPAM 0.5 MG TAB PO PRN (21:54)
[2016-12-15] MEDS: HYDROmorphone INJ 1 MG/ML SYR IV PRN ×4 (01:23→12:40)
--- NOTE | 2016-12-15 02:11 | Progress Note ---
Progress Note Was informed by the RN that the patient has minimal bleeding from the nose and patient stated he had a very small about of bright red blood per rectum When in to see patient he was not actively bleeding, his chest pain has completely resolved and the back pain (between shoulders) had almost completely resolved He states that he noticed some bleeding from his nose, rectum and from a cut on his head recently today and it "scared me. Last time I had a stent I was having this tiny episodes of bleeding for 2 months." We discussed the R/B/A of continuing the Integrilin and that the Plavix may potentially be a culprit for these episodes. He was reassured when he knew we would be checking a CBC in the am and that the nurse was aware of his concern and would continue to monitor for worrisome signs of bleeding. It was agreed that he would continue his Integrilin until the 0500 d/c time.
[2016-12-15 03:58] VITALS: BP 111/61; PULSE 47; TEMP 36.5; O2SAT 97
[2016-12-15] MEDS: EPTIFIBATIDE INJ 75 MG PREMIXED IV SCH (04:39)
[2016-12-15] MEDS ORDERED: Integrelin infusion --> STOP ORDER ONE (05:00)
[2016-12-15] MEDS: NSS + 20MEQ KCL 1000ML 1,000 ML IV SCH (06:27)
[2016-12-15 06:45] LABS: BASO % 0.3 %; BASO ABS # 0.02 K/uL (0-0.2); COMPLETE YES; EOS % 2.4 %; HEMATOCRIT 39.9 % (42-52); IG% 0.2 %; LYMPH % 25.6 %; LYMPH ABS # 1.52 K/uL (1.2-3.4); MEAN CELL VOLUME 88.9 fL (80-100); MEAN CORPUSCULAR HEMOGLOBIN 29.2 pg (25-34); MEAN CORPUSCULAR HGB CONC 32.8 g/dl (32-36); MEAN PLATELET VOLUME 10.9 fL (7.4-10.4); MONO % 8.6 %; NEUT % 62.9 %; PLATELET COUNT 137 K/uL (130-400); RED BLOOD COUNT 4.49 M/uL (4.7-6.1); WHITE BLOOD COUNT 5.94 K/uL (4.8-10.8)
[2016-12-15 07:50] VITALS: BP 111/66; PULSE 47; TEMP 36.5; O2SAT 93
[2016-12-15] MEDS: ONDANSETRON INJ 2 MG/ML 2 ML VIAL IV PRN (07:55)
[2016-12-15] MEDS: METOPROLOL SUCC 25MG EXT REL TAB PO SCH (07:56)
[2016-12-15] MEDS: ROSUVASTATIN CALCIUM 20 MG TAB PO SCH (07:56)
[2016-12-15] MEDS: CLOPIDOGREL BISULFATE 75 MG TAB PO SCH (07:56)
[2016-12-15] MEDS: LISINOPRIL 2.5 MG TAB PO SCH (07:56)
[2016-12-15] MEDS: CEROVITE ADV FORMULA TAB PO SCH (07:56)
[2016-12-15] MEDS: ASPIRIN 81 MG ECTAB PO SCH (07:56)
[2016-12-15 11:40] VITALS: BP 124/77; PULSE 49; TEMP 36.8; O2SAT 97
[2016-12-15] MEDS: TRAMADOL HCL 50 MG TAB PO PRN (15:18)
[2016-12-15 15:30] VITALS: BP 128/76; PULSE 46; TEMP 36.9; O2SAT 96
--- NOTE | 2016-12-15 17:46 | CARDIOLOGY PROGRESS NOTE ---
DATE: 12/15/2016 TIME: 17:18 p.m. SUBJECTIVE: I am seeing Mr. Jackson in place of Dr. Gallardo who was unavailable today. He was evaluated earlier this morning at approximately 8:30 a.m. He underwent cardiac catheterization and PCI yesterday with Dr. Gallardo. He underwent a 4 x 15 mm Resolute drug-eluting stent within the mid circumflex, post-dilated with a 4.5 mm noncompliant balloon. Another Resolute drug-eluting stent of 2.5 x 18 mm was placed within the mid left posterolateral branch. He apparently tolerated the procedure well but did have chest discomfort before, during and after the procedure. Overnight, he did have some lingering chest pain, but he believes it has resolved throughout the night. He continues to have upper back pain. He has not yet ambulated in the hallway. He denies shortness of breath, syncope, near syncope, or palpitations. His major issue overnight was bleeding. He had some epistaxis and was bleeding from different small wounds throughout his body as well as he noticed some bright red blood per rectum. He was on Integrilin drip at that time which has since been discontinued. Since Integrilin was discontinued, he has not noted any other bleeding. OBJECTIVE: VITAL SIGNS: Temperature was 36.5 degrees. Heart rate charted is 47 and overnight was in the 40s-50s for the most part. At the time of my visit with him; however, his heart rate was in the 60s on telemetry. Respiration rate 20, blood pressure 111/66 mmHg, and oxygen saturation 93% on room air. I's and O's positive 1.5 liters yesterday. Weight is 86.5 kg. GENERAL: No acute distress, alert. NECK: No appreciable JVD. CARDIAC: No ventricular heave, regular, normal S1, S2, 2/6 systolic murmur. No rubs or gallops. LUNGS: Clear to auscultation bilaterally without wheezes, rales or rhonchi. ABDOMEN: Soft, nontender, nondistended. Normoactive bowel sounds. EXTREMITIES: No cyanosis or pitting edema. Right radial cath site is clean, dry, and intact without erythema or discharge. 2+ right radial pulse remains distal to the cardiac catheterization site. MEDICATIONS: Include aspirin 81 mg daily, Plavix 75 mg daily, Lovenox 40 mg subQ at bedtime, Prozac 10 mg at bedtime, lisinopril 2.5 mg daily, metoprolol succinate 25 mg daily, Crestor 40 mg daily. Please see full list. Telemetry personally reviewed. No arrhythmia. LABORATORY DATA: White blood cell count 5.94, hemoglobin 13.1, platelets 137. Sodium 141, potassium 4.5, BUN 25, creatinine 0.95. ASSESSMENT AND PLAN: 1. Coronary artery disease status post percutaneous coronary intervention: He had an abnormal nuclear perfusion study earlier this week suggesting circumflex distribution ischemia and this was found to correlate well with cardiac catheterization. He has undergone percutaneous coronary intervention. Continue aspirin 81 mg daily indefinitely. Continue Plavix 75 mg daily for at least 1 year. Continue high intensity statin therapy. He has continued to have chest discomfort following the procedure; however, none currently. It does not appear as though his ischemic heart disease correlated with his chest discomfort as he did have several hours of chest discomfort with negative troponins and despite percutaneous coronary intervention, continued to have chest discomfort following the procedure. 2. Back pain: As per primary service. 3. Systolic anterior motion of the mitral leaflet was regurgitation: No significant outflow tract obstruction noted on most recent echo. 4. Aortic regurgitation: Non-severe. This will be monitored as an outpatient by Dr. Gallardo. 5. Chest pain: Atypical and does not appear to correlate with ischemic heart disease as he continued to have pain following the procedure and has not had any elevated cardiac biomarkers nor ischemic changes on ECG despite hours and days worth of chest discomfort recently. 6. Bradycardia: He was bradycardic overnight, but heart rate was reasonable when I was at the bedside earlier this morning. Since then, Dr. Skinner has contacted me via telephone. We discussed outpatient care. He was bradycardic in the 40s intermittently throughout the day today. For this reason, metoprolol succinate will be discontinued. He did not appear to be symptomatic from the bradycardia. 7. Disposition: Dr. Gallardo will resume his cardiology care if he remains hospitalized. From a cardiac perspective, can be followed up as an outpatient.
[2016-12-15] MEDS: CARISOPRODOL 350 MG TAB PO PRN (18:19)
--- NOTE | 2016-12-15 19:01 | Progress Note ---
Subjective Date of Service: Dec 15, 2016. Subjective Pt evaluation today including: conversation w/ patient, physical exam, chart review, lab review, conversation w/ store consultant (cardiology, pain management, orthopedics), review of inpatient medication list Pain: upper back, left (paraspinal t-spine region) PO Intake: normal Voiding: no voiding problems events of last pm noted had bleeding from a sore on his scalp, left leg, rectum, and right nare integrillin d/c no further bleeding since on tele - noted to have bradycardia at rest in the 40s; no pauses or AV block HRs go up to the 60s with activity denies cp, sob, orthopnea, suarez Problem List Medical Problems: (1) Abdominal pain Status: Acute (2) Chest pain Status: Acute (3) Chest pain Status: Acute (4) Colitis Status: Acute (5) Dehydration Status: Acute (6) Dehydration Status: Acute (7) Flank pain Status: Acute (8) Headache Status: Acute (9) History of aortic aneurysm Status: Acute (10) Left sided abdominal pain Status: Acute (11) Nasal bleeding Status: Acute (12) Non-cardiac chest pain Status: Acute (13) Pneumonia Status: Acute (14) Precordial chest pain Status: Acute (15) Precordial chest pain Status: Acute (16) Right hand weakness Status: Acute (17) Transient weakness of left leg Status: Acute Review of Systems Constitutional: No fever Respiratory: No cough, No dyspnea on exertion, No shortness of breath Cardiac: No PND, No chest pain, No edema, No orthopnea Abdomen: No pain Objective Vital Signs Date Time Temp Pulse Resp B/P Pulse Ox O2 Delivery O2 Flow Rate FiO2 12/15/16 16:00 Room Air 12/15/16 15:30 36.9 46 18 128/76 96 Room Air 12/15/16 12:00 Room Air 12/15/16 11:40 36.8 49 20 124/77 97 Room Air 12/15/16 08:00 Room Air 12/15/16 07:50 36.5 47 20 111/66 93 Room Air 12/15/16 04:00 Room Air 12/15/16 03:58 36.5 47 15 111/61 97 Room Air 12/14/16 23:59 Room Air 12/14/16 23:10 36.8 51 18 111/65 94 Room Air 12/14/16 20:08 36.5 84 20 149/74 93 Nasal Cannula 4.0 12/14/16 20:00 Room Air 12/14/16 19:22 36.5 51 18 110/70 95 Room Air Physical Exam General Appearance: no apparent distress ENT: pharynx normal Neck: no JVD Respiratory/Chest: lungs clear, no respiratory distress, no accessory muscle use Cardiovascular: no gallop, no murmur, + bradycardia Abdomen: normal bowel sounds, non tender, soft, no organomegaly Extremities: no pedal edema Neurologic/Psychiatric: alert, oriented x 3 Comments: musculo - less tenderness to palpation over the upper left back, paraspinal region, as well as the left scapula Laboratory Results Last 24 Hours Test 12/15/16 05:53 White Blood Count 5.94 K/uL Red Blood Count 4.49 M/uL Hemoglobin 13.1 g/dL Hematocrit 39.9 % Mean Corpuscular Volume 88.9 fL Mean Corpuscular Hemoglobin 29.2 pg Mean Corpuscular Hemoglobin Concent 32.8 g/dl Platelet Count 137 K/uL Mean Platelet Volume 10.9 fL Neutrophils (%) (Auto) 62.9 % Lymphocytes (%) (Auto) 25.6 % Monocytes (%) (Auto) 8.6 % Eosinophils (%) (Auto) 2.4 % Basophils (%) (Auto) 0.3 % Neutrophils # (Auto) 3.74 K/uL Lymphocytes # (Auto) 1.52 K/uL Monocytes # (Auto) 0.51 K/uL Eosinophils # (Auto) 0.14 K/uL Basophils # (Auto) 0.02 K/uL RDW Standard Deviation 42.0 fL RDW Coefficient of Variation 13.0 % Immature Granulocyte % (Auto) 0.2 % Immature Granulocyte # (Auto) 0.01 K/uL Assessment and Plan 66yo male with: 1. CAD, with recent chest pain - s/p cardiac cath by Dr. Gallardo w/ deployment of 2 stents in the Left Circumflex Artery. He will continue statin, asa, plavix, low-dose HUMBLE. Had excess bleeding due to integrillin and thus it was stopped a bit early. 2. thoracic spine pain and numbness - CT thoracic spine and CT lumbar spine without cord compromise or compression fracture. Certainly small thoracic nerve compression could be missed and MRI would be needed to look at such. Cannot obtain MRI due to new coronary stents. Does he have element of subscapularis bursitis? T-spine nerve impingement? other? spoke with Dr. Bustamante from ortho and Dr. Miller from pain management. Dr. Bustamante to see tomorrow AM. Dr. Miller to see in clinic. Add soma prn. d/c dilaudid IV; change to ultram prn. Try k-pad as well. cont lidoderm patches 3. h/o TIA and stroke - cont aspirin for secondary stroke prevention. 4. h/o diverticular abscess s/p colostomy with ultimate reversal - noted. No issues. 5. DVT proph - lovenox daily. 6. FEN - BMP stable. Stop fluids. Eating fine. 7. Bradycardia - BB d/c in the past due to this issue. His baseline HR off a beta kg is 55-60. Thus, we have no room for BB and thus will d/c it. TSH was normal this month. 8. mild acute blood loss anemia - follow. pt requested observation for another 24 hours due to events of last pm home tomorrow hopefully Discharge planning: home
[2016-12-15 19:10] VITALS: BP 128/75; PULSE 52; TEMP 36.7; O2SAT 95
[2016-12-15] MEDS: ENOXAPARIN 40 MG/0.4 ML SYR SC SCH (19:39)
[2016-12-15] MEDS: FLUOXETINE HCL 10 MG CAP PO SCH (19:39)
[2016-12-15] MEDS ORDERED: ERGOCALCIFEROL 50,000 INTER.UNIT CAP PO ONE (20:00)
[2016-12-15] MEDS: LIDODERM (LIDOCAINE) PATCH 5% TD SCH (21:56)
[2016-12-15] MEDS: CLONAZEPAM 0.5 MG TAB PO PRN (22:00)
[2016-12-15 23:24] VITALS: BP 130/74; PULSE 57; TEMP 36.5; O2SAT 96
[2016-12-16 03:44] VITALS: BP 144/79; PULSE 50; TEMP 36.6; O2SAT 96
[2016-12-16 07:26] VITALS: BP 138/75; PULSE 57; TEMP 36.4; O2SAT 93
[2016-12-16] MEDS: CLOPIDOGREL BISULFATE 75 MG TAB PO SCH (07:57)
[2016-12-16] MEDS: TRAMADOL HCL 50 MG TAB PO PRN (07:57)
[2016-12-16] MEDS: ASPIRIN 81 MG ECTAB PO SCH (07:57)
[2016-12-16] MEDS: ROSUVASTATIN CALCIUM 20 MG TAB PO SCH (07:57)
[2016-12-16] MEDS: LISINOPRIL 2.5 MG TAB PO SCH (07:57)
[2016-12-16] MEDS: CEROVITE ADV FORMULA TAB PO SCH (07:58)
[2016-12-16 08:05] LABS: BASO % 0.3 %; BASO ABS # 0.02 K/uL (0-0.2); COMPLETE YES; EOS % 1.6 %; HEMATOCRIT 45.5 % (42-52); IG% 0.2 %; LYMPH % 13.8 %; LYMPH ABS # 0.85 K/uL (1.2-3.4); MEAN CELL VOLUME 87.2 fL (80-100); MEAN CORPUSCULAR HEMOGLOBIN 29.9 pg (25-34); MEAN CORPUSCULAR HGB CONC 34.3 g/dl (32-36); MEAN PLATELET VOLUME 11.1 fL (7.4-10.4); MONO % 6.5 %; NEUT % 77.6 %; PLATELET COUNT 153 K/uL (130-400); RED BLOOD COUNT 5.22 M/uL (4.7-6.1); WHITE BLOOD COUNT 6.16 K/uL (4.8-10.8)
[2016-12-16 08:36] LABS: BUN/CREATININE RATIO 12.3 (10-20); CALCIUM 8.7 mg/dl (8.5-10.1); CREATININE 0.91 mg/dl (0.60-1.40); POTASSIUM 4.4 mmol/L (3.5-5.1)
[2016-12-16 09:44] VITALS: BP 138/75; PULSE 57; TEMP 36.4; O2SAT 93
[2016-12-16] MEDS: CARISOPRODOL 350 MG TAB PO PRN (09:55)
[2016-12-16] MEDS ORDERED: SM350 PO (10:16)
[2016-12-16] MEDS ORDERED: LDDP5 TD (10:16)
[2016-12-16] MEDS ORDERED: ERGO500037 PO (10:16)
[2016-12-16] MEDS ORDERED: OMEP40CA41 PO (10:16)
[2016-12-16] MEDS ORDERED: ULT50X PO (10:16)
[2016-12-16] MEDS ORDERED: ROSU40TA PO (10:16)
[2016-12-16] MEDS ORDERED: NTRSLP4 SL (10:16)
[2016-12-16] MEDS ORDERED: LSN25 PO (10:16)
[2016-12-16] MEDS ORDERED: PLV75 PO (10:16)
--- NOTE | 2016-12-16 10:33 | Discharge Instructions ---
Discharge Instructions Admission Reason for Admission: Chest Pain Discharge Discharge Diagnosis / Problem: chest pain due to blocked coronary artery; placement of 2 stents Discharge Goals Goal(s): Improve disease control, Learn about illness, Diagnostic testing, Therapeutic intervention Activity Recommendations Activity Limitations: as noted below ACTIVITY RECOMMENDATIONS: Excess manipulation of the RIGHT wrist should be avoided for the next 24 hours. * No lifting over 2 pounds (approximately a 1/2 gallon of milk) with the right arm for 24 hours. * You may shower at this time but do not take a tub bath or submerge the puncture site in water for the next 3 days. * Do not operate any motorized equipment (includes driving) for 3 days. * No heavy exertional activity (going to the gym, shoveling snow, heavy household jobs, etc) until you see Dr. Gallardo. * Avoid any activity that makes your left upper back feel worse. SPECIAL CARE INSTRUCTIONS: The site may be slightly bruised and sore following your procedure. Should any of the following occur, contact the Dr. who performed your procedure. 1. Redness/inflammation, swelling, chills, or fever, or colored drainage at procedure site within 3-7 days after your procedure. 2. Coldness, discoloration, ongoing numbness, severe pain, or swelling. Expect mild tingling of hand and tenderness at the puncture site for up to three days. If this persists beyond three days, or other symptoms develop, notify the Dr. who performed your procedure. BLEEDING: If the procedure site on your wrist begins to bleed, do not panic 1. Place 1 or 2 fingers firmly just slightly above the insertion site to stop the bleeding. You may be able to feel your pulse as you hold pressure. 2. Lift your finger after 5 minutes to see if the bleeding has stopped. 3. Once the bleeding has stopped, gently wipe the wrist area clean with a bandage. * If the bleeding from your wrist does not stop after 10 minutes, or if there is a large amount of bleeding or spurting, call 911 (do not drive yourself to the hospital). SKIN IRRITATION: * You may experience some redness and/or swelling in the area where radiation was administered. If any skin irritation occurs, please contact your family physician. . Instructions / Follow-Up Instructions / Follow-Up From Dr. Brody Mark 1. Coronary artery disease instructions: Activation of Emergency Medical System: Call 911, immediately, if you experience any of the following: Warning Signs and Symptoms of a Heart Attack: * Chest pain that is not relieved by medication * Shortness of breath Otherwise, call your doctor immediately if you have: * Lightheadedness, dizziness, or fainting * Feeling of irregular heartbeat or fast pulse Home Care: * Take your medications exactly as directed. Don't skip doses. * Return to normal activity when your doctor says it's okay. * Ask your doctor about joining a heart rehabilitation program. * Tell your doctor if you are feeling depressed. * If you are having chest pain, call 911 for an ambulance. Do NOT drive yourself to the hospital. * Ask your family members to learn CPR. * Learn to take your own blood pressure and pulse. Keep a record of your results. Ask your doctor when you should seek emergency medical attention. He or she will tell you which blood pressure reading is dangerous. Lifestyle Changes: * Maintain a healthy weight. Get help to lose any extra pounds. * Cut back on salt. 1. Limit canned, dried, packaged, and fast foods. 2. Don't add salt to your food. 3. Season foods with herbs instead of salt when you cook. * Break the smoking habit. Enroll in a stop-smoking program to improve your chances of success. * Limit fatty foods. * Check your lipid levels regularly. (Your doctor can show you how to do this. ) * Build up your activity according to your doctor's recommendation. * Ask your doctor when it's okay to resume sexual activity. * Tell your doctor about any erectile dysfunction (ED) medication you are taking. Some ED medications are not safe if you take certain heart medications. * Try to manage stress. 2. Medications - * You have been started on the following new medications for your heart - * plavix 75mg once daily; keeps the stents open * lisinopril 2.5mg once daily; for your heart * crestor 40mg once daily; for cholesterol * nitroglycerin tablets as needed for chest pain * Medications for your back pain - * soma 350mg every 8 hours as needed for pain/spasm; do NOT drive or use alcohol while taking this medication * ultram (tramadol) 50mg every 6 hours as needed for pain * lidoderm patches - up to 3 patches to your back; leave for 12 hours, remove for 12 hours * you may use heat or ice as desired for your back * you may use [id number] tylenol as needed or as desired * DO NOT take any [id number] motrin, ibuprofen, alleve, etc 3. vitamin D deficiency - * your vitamin D level was low at 14 * take vitamin D capsule (prescription given) twice a week for 8 weeks * have your level rechecked in 2-3 months 4. Prilosec (omeprazole) has been prescribed to protect your stomach from the aspirin and plavix. 5. Follow-up appointments - * Dr. 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 Neisha Miller, on MondayJanuary 06 at 8:00 am * see Marco A Mariah Hartman - your family doctor - within 1 week * see [facility] for your back as scheduled Current Hospital Diet Patient's current hospital diet: AHA Diet (Heart Healthy) Discharge Diet Recommended Diet: AHA Diet (Heart Healthy) Procedures Procedures Performed: Cardiac catheterization - blocked artery with deployment of 2 stents. Pending Studies Studies pending at discharge: no Medical Emergencies . Who to Call and When: Medical Emergencies: If at any time you feel your situation is an emergency, please call 911 immediately. . Non-Emergent Contact Non-Emergency issues call your: [employer] Call Non-Emergent contact if: temperature is above 100.5, your pain is not controlled, your pain is concerning you, you have any medication questions You develop recurrent chest pain, difficulty breathing at rest or with activity , etc. . . "Provider Documentation" section prepared by Aron Skinner. VTE Core Measure Inpt VTE Proph given/why not?: Other Anticoagulation
--- NOTE | 2016-12-16 11:11 | ORTHOPEDIC CONSULTATION ---
DATE OF CONSULTATION: 12/16/2016 DATE OF CONSULTATION: 12/16/2016. CHIEF COMPLAINT: Thoracic pain. HISTORY OF PRESENT ILLNESS: This is a very pleasant 66-year-old male who was admitted to the hospital with chest pain and underwent a cardiac evaluation and subsequent stent placement. In the interim, he is still complaining of back pain roughly in the T6-T7 thoracic region. It is radiating around the rib cage, left worse than right. He denies any precipitating trauma, fall or event. He states this began roughly in October. Pain is unremitting in nature, though he states he can not find certain positions where it is tolerable. It is not exacerbated by coughing or sneezing. He denies any low back pain or leg symptoms. PHYSICAL EXAMINATION: He has excellent strength to testing. Upper extremities he does have pain to percussion over the thoracic region. I do not appreciate any abnormal skin markings or rash. A CAT scan available for review performed at [facility] dated 12/12/2016 does demonstrate evidence of multilevel spondylosis. I do not appreciate any gross deformity or fracture. Difficult to assess any significant disc herniation. There is, however, calcifications of the annulus at several regions of the thoracic spine. ASSESSMENT: Thoracic pain with possible radiculitis. PLAN: At this time, he is scheduled dose see Dr. Miller for interventional pain management. Unfortunately, we were unable to obtain an MRI at this time status post stent placement. He is understanding this will be possible in 6 weeks. At that time we will get an MRI and make further recommendations.
--- NOTE | 2016-12-16 23:53 | Discharge Summary ---
Discharge Summary Admission Date: Dec 13, 2016 at 13:07 Discharge Date: Dec 16, 2016 Discharge Disposition: Home Principal Diagnosis: CAD s/p left circumflex stents Problems/Secondary Diagnoses: 1. h/o TIA 2. diverticular abscess s/p colostomy with ultimate reversal of the colostomy 3. upper back pain, etiology uncertain 4. anxiety/depression 5. hyperlipidemia 6. vitamin D deficiency 7. mild acute blood loss anemia Immunizations: Have You Had Influenza Vaccine: Yes Influenza Vaccine Date: Sep 01, 2013 History of Tetanus Vaccine?: Yes Tetanus Immunization Date: Jul 23, 2004 History of Pneumococcal: Yes Pneumococcal Date: Dec 02, 2012 History of Hepatitis B Vaccine: Yes Hepatitis Immunization Date: Jul 23, 2005 Procedures: 1. nuclear stress test: IMPRESSION: 1. Abnormal myocardial perfusion study suggesting circumflex territory ischemia involving the inferolateral and lateral wall as noted above. 2. Normal wall motion. 3. Hyperdynamic left ventricular systolic function. Ejection fraction 71%. 4. No chest pain reported. 5. No arrhythmia. 6. Nondiagnostic Lexiscan ECG. 2. cardiac catheterization - Butch Gallardo MD Deployment of two drug-eluting stents in the left circumflex artery Coronary Anatomy Dominant: Co-dominant Left Main (% Stenosis): Normal LAD (% Stenosis): Proximal (10), Mid D1 (% Stenosis): Normal D2 (% Stenosis): Proximal (10), Mid (20) Circumflex (% Stenosis): Proximal (20), Mid (20,75, diffuse in stent 10-20) OM1 (% Stenosis): Ostial (50) OM2 (% Stenosis): Normal L PL1 (% Stenosis): Proximal (10-20), Mid (75), Distal (20) RCA (% Stenosis): Proximal (0-10), Mid (10-20 in stent), Distal (0-10) R PDA (% Stenosis): Normal R PL1 (% Stenosis): Normal R PL2 (% Stenosis): Normal 3. echocardiogram: * -- Conclusions -- * 1. Normal left ventricular size with hyperdynamic systolic function. 65-70%. No regional wall motion abnormalities. Moderate concentric left ventricular hypertrophy. Diastolic dysfunction, Grade II (pseudonormalization pattern). * Mild aortic regurgitation. * 2. Sclerotic aortic valve without significant stenosis. Mild aortic regurgitation. * 3. Systolic anterior motion of the mitral leaflet without significant gradient. * 4. There is mild mitral regurgitation. * 5. Normal estimated right ventricular systolic pressure; 28 mmHg. * 6. Technically difficult study, enhanced with IV Definity. * 7. Compared to prior study on 05/15/2015, LV systolic function is less hyperdynamic. Systolic anterior motion of the mitral leaflet appears less severe on current study and there does not appear to be any significant gradient , compared to last echo. 4. Thoracic spine CT - IMPRESSION: 1. Mild multilevel degenerative changes 2. No acute fractures 3. Stable 3 mm right upper lobe pulmonary nodule 4. No destructive lesions are visualized. 5. Lumbar spine CT - IMPRESSION: 1. No acute fractures or subluxations 2. Small left paracentral disc protrusion at the L5-S1 level. 3. Mild circumferential disc bulges at the L3-4, and L4-5 levels with mild spinal stenosis 4. 3.7 cm infrarenal abdominal aortic aneurysm Consultations: cardiology - Butch Gallardo MD / Micah Kelly MD orthopedics - Mariusz Bustamante, DO Medication Reconciliation New Medications: Omeprazole (Prilosec) 40 Mg Cap 40 MG PO QAM, #30 CAP 5 Refills Carisoprodol (Carisoprodol) 350 Mg Tab 350 MG PO Q8H PRN for muscle pain/spasm of back, #30 TAB 0 Refills Clopidogrel Bisulfate (Clopidogrel) 75 Mg Tab 75 MG PO QAM, #30 TAB 5 Refills Lidocaine (Lidocaine) 1 Patch Tdsy 3 PATCH TD DAILY@2200, #[address] up to 3 patches at site(s) of pain on back; leave on for 12 hours, remove for 12 hours Lisinopril (Lisinopril) 2.5 Mg Tab 2.5 MG PO QAM, #30 TAB 5 Refills Nitroglycerin (Nitrostat) 0.4 Mg/1 Tab Subl 0.4 MG SL [id number] PRN for Chest Pain, #1 BTL 0 Refills maximum 3 in 15 minutes Rosuvastatin Calcium (Crestor) 40 Mg Tab 1 TAB PO DAILY for 30 Days, #30 TAB 5 Refills Tramadol HCl (Tramadol HCl) 50 Mg Tab 50 MG PO Q6H PRN for Pain, #30 TAB 0 Refills Changed Medications: Ergocalciferol (Vitamin D 62729 Unit) 50,000 Unit Cap 31987 UNIT PO twice a week, #8 CAP 1 Refill (Changed from: WK; Refills: ) Continued Medications: Aspirin (Aspirin Ec) 81 Mg Tab 81 MG PO DAILY Clonazepam (Klonopin) 0.5 Mg Tab 0.5 MG PO DAILY PRN for RESTLESS LEGS, TAB Fluoxetine (Prozac) 10 Mg Cap 10 MG PO HS, CAP Multiple Vitamins W/ Minerals (Mens 50+ Advanced) 1 Cap Cap 1 CAP PO DAILY Referrals At Discharge Follow up Referrals: [facility] Referral - Within 2 Weeks with Butch Gallardo M.D. Physician Referral - Within a Month with Neisha Miller, DO Discharge Exam Physical Exam: General Appearance: WD/WN, no apparent distress ENT: pharynx normal Neck: no JVD Respiratory/Chest: lungs clear, normal breath sounds, no respiratory distress, no accessory muscle use, + pertinent finding (back - tender to palpation over left upper back in the thoracic spine region; there is a section of the back adjacent to the lower medial border of the scapula that is tender ) Cardiovascular: no gallop, no murmur, normal peripheral pulses, + bradycardia Abdomen / GI: normal bowel sounds, non tender, soft, no organomegaly Extremities: no pedal edema Neurologic/Psychiatric: alert, oriented x 3 Hospital Course HISTORY OF PRESENT ILLNESS: Mr. Jackson is a 66-year-old male who has a known history of coronary artery disease. He was initially diagnosed in 2007 after suffering an acute [place]. He had 3 stents placed during that event. The patient presented to Dr. Gallardo's office on the day of admission for routine appointment. The patient stated that over the last few weeks he had been having accelerated bouts of chest pain associated with back pain, nausea and diaphoresis. The pain radiated to his neck also. The patient had not had any recent changes in medications. The patient stated that his discomforts began at rest on the day of admission. Reportedly, he was sent from Dr. Gallardo's office with abnormal EKG. The patient' s pain was nearly resolved after the administration of oxygen, morphine and nitro en route to the [facility] Emergency Department. HOSPITAL COURSE: The patient was admitted to telemetry where he remained hemodynamically stable. Serial cardiac enzymes were negative. Resting echocardiogram showed preserved EF and diastolic dysfunction. He ultimately underwent a nuclear stress test showing apparent ischemia in the distribution of the left circumflex artery. Cardiac catheterization was recommended, and he underwent such by Dr. Butch Gallardo. High-grade stenosis was seen in the left circumflex artery, and 2 drug-eluting stents were deployed without incident. Post-cath he was started on plavix and aspirin/HUMBLE were continued. Unfortunately the patient's resting pulse was too low to consider beta kg and this was discontinued before discharge. He will also remain on high-dose statin agent. Besides the chest pain the patient also complained of upper left back pain for about 1 month. His pain started after suffering a fall onto the back. He underwent CT thoracic and lumbar spine with results as noted above. It was felt that perhaps his pain was either a thoracic radiculitis or a subscapularis bursitis. He was started on lidoderm patches, soma prn, and tramadol prn. Heat was also advised. Dr. Mariusz Bustamante from orthopedics was consulted who recommended follow-up with pain management. At discharge the patient will have follow-up appointments with orthopedics as well as pain management. All other medical problems remained stable while here. Total Time Spent: Greater than 30 minutes This includes examination of the patient, discharge planning, medication reconciliation, and communication with other providers. Discharge Instructions Please refer to the electronic Patient Visit Report (Discharge Instructions) for additional information. Follow-Up 1. [facility] - within [address] Butch Gallardo, cardiology, within [address] Neisha Miller, pain management, MondayJanuary 06 at 8:00 am 4. [facility] - MondayDecember 26 at 12:10 with Preet Vasquez Additional Copies To Neisha Miller, DO; Mariah Lewis, Luis Romo PA-C; Butch Gallardo M.D.
== END 2016-12-16 11:30 | disposition home or self-care (01) | DRG 247 ==
LOC: ENRESERVDT → ENRESERVTM → EDBD 11:01 → C.EDC 11:03 → C.2T 13:46 → EDBEDREQ 14:00 → OBSVTOIN 12-13 13:07
PROVIDERS: ADMIT Internal Medicine; ATTEND Internal Medicine
PROC: 4A023N7 Measurement of Cardiac Sampling and Pressure, Left Heart, Percutaneous Approach (ICD-10-PCS; 2016-12-14)
PROC: B2111ZZ Fluoroscopy of Multiple Coronary Arteries using Low Osmolar Contrast (ICD-10-PCS; 2016-12-14)
PROC: 027035Z Dilation of Coronary Artery, One Artery with Two Drug-eluting Intraluminal Devices, Percutaneous Approach (ICD-10-PCS; principal; 2016-12-14 08:10)
DX: I25.10 Atherosclerotic heart disease of native coronary artery without angina pectoris (principal); D62 Acute posthemorrhagic anemia; I25.2 Old myocardial infarction; Z86.73 Personal history of transient ischemic attack (TIA), and cerebral infarction without residual deficits; Z90.49 Acquired absence of other specified parts of digestive tract; Z87.19 Personal history of other diseases of the digestive system; Z87.891 Personal history of nicotine dependence; F32.9 Major depressive disorder, single episode, unspecified; R00.1 Bradycardia, unspecified; I08.0 Rheumatic disorders of both mitral and aortic valves; R19.7 Diarrhea, unspecified; Z88.0 Allergy status to penicillin; Z88.1 Allergy status to other antibiotic agents; E78.5 Hyperlipidemia, unspecified; F41.9 Anxiety disorder, unspecified; M19.90 Unspecified osteoarthritis, unspecified site; E55.9 Vitamin D deficiency, unspecified; G43.909 Migraine, unspecified, not intractable, without status migrainosus; Z79.82 Long term (current) use of aspirin; Z79.899 Other long term (current) drug therapy; Z82.49 Family history of ischemic heart disease and other diseases of the circulatory system; M51.26 Other intervertebral disc displacement, lumbar region; M48.06 Spinal stenosis, lumbar region; M51.27 Other intervertebral disc displacement, lumbosacral region

== ENCOUNTER 2016-12-28 14:22 | Emergency (ER) | payer OTHER ==
[~2016-12-28] VITALS: Ht 182.9 cm; Wt 85.1 kg
[~2016-12-28 14:22] MED LIST changes: +ERGO500037 PO; -HYDR-5688 PO; +LDDP5 TD; +LSN25 PO; +NTRSLP4 SL; +OMEP40CA41 PO; -PANT40TA PO; +PLV75 PO; +ROSU40TA PO; +SM350 PO; +ULT50X PO
[2016-12-28 14:28] VITALS: Ht 182.9 cm; Wt 85.1 kg
[2016-12-28 15:17] LABS: BASO % 0.4 %; BASO ABS # 0.03 K/uL (0-0.2); COMPLETE YES; EOS % 2.1 %; HEMATOCRIT 44.8 % (42-52); IG% 0.4 %; LYMPH % 20.2 %; LYMPH ABS # 1.72 K/uL (1.2-3.4); MEAN CORPUSCULAR HEMOGLOBIN 29.8 pg (25-34); MEAN CORPUSCULAR HGB CONC 34.6 g/dl (32-36); MEAN PLATELET VOLUME 10.3 fL (7.4-10.4); MONO % 6.2 %; NEUT % 70.7 %; PLATELET COUNT 186 K/uL (130-400); RED BLOOD COUNT 5.21 M/uL (4.7-6.1); WHITE BLOOD COUNT 8.52 K/uL (4.8-10.8)
[2016-12-28] MEDS ORDERED: ONDANSETRON 8 MG/54 ML D5W IV STA (15:26)
--- NOTE | 2016-12-28 15:28 | DIAGNOSTIC IMAGING REPORT ---
CHEST ONE VIEW PORTABLE CLINICAL HISTORY: Chest pain. Right leg pain. COMPARISON STUDY: Chest radiograph December 09, 2016. FINDINGS: There is no pneumothorax or pleural effusion. There is no evidence of pulmonary edema. Cardiomediastinal silhouette is stable. Lower lung interstitial thickening is unchanged. This is likely chronic. IMPRESSION: No change in appearance of the chest. Stable interstitial thickening which is likely chronic. Electronically signed by: Charlie Obrien M.D. 12/28/2016 3:27 PM Dictated Date/Time: 12/28/2016 3:25 PM
[2016-12-28] MEDS ORDERED: SODIUM CHLORIDE 0.9% 1000ML 1,000 ML IV STA (15:30)
[2016-12-28] MEDS ORDERED: HYDROmorphone INJ 1 MG/ML SYR IV PRN (15:30)
[2016-12-28 15:37] VITALS: O2SAT 97
[2016-12-28 15:39] LABS: ALKALINE PHOSPHATASE 78 U/L (45-117); ALT/SGPT 22 U/L (12-78); AST/SGOT 11 U/L (15-37)
[2016-12-28 15:41] LABS: ISTAT CREATININE 0.8 mg/dl (0.6-1.3); ISTAT HEMOGLOBIN 14.6 g/dl (14.0-18.0); ISTAT IONIZED CALCIUM 1.16 mmol/l (1.12-1.32)
[2016-12-28] MEDS ORDERED: OPTIRAY 320 IV PRN (15:45)
--- NOTE | 2016-12-28 16:48 | DIAGNOSTIC IMAGING REPORT ---
CHEST CTA for PULMONARY ARTERIES CT DOSE: 357.18 mGy.cm HISTORY: Chest pain dyspnea TECHNIQUE: Multiaxial CT images of the chest were performed following the intravenous administration of contrast to evaluate the pulmonary arteries. Maximal intensity projection images were also obtained. COMPARISON STUDY: None. FINDINGS: There is a normal caliber thoracic aorta with no evidence for dissection. There is no evidence for pulmonary embolus. No pleural effusions. No pneumothorax. The liver and spleen are unremarkable. No mediastinal or hilar lymphadenopathy. The central airways are patent. The lungs are clear. Subtle interstitial prominence bilaterally IMPRESSION: No evidence for pulmonary embolus. Subtle interstitial prominence throughout both hemithoraces Electronically signed by: Suhail Jernigan M.D. 12/28/2016 4:47 PM Dictated Date/Time: 12/28/2016 4:46 PM
--- NOTE | 2016-12-28 17:31 | DIAGNOSTIC IMAGING REPORT ---
Venous Doppler right leg RIGHT VENOUS DOPP LOWER EXT UNILAT CLINICAL HISTORY: right lower leg pain Right pain. Edema. TECHNIQUE: Venous Doppler COMPARISON STUDY: 02/22/2016 FINDINGS: Normal study IMPRESSION: Normal study. Electronically signed by: Suhail Jernigan M.D. 12/28/2016 5:29 PM Dictated Date/Time: 12/28/2016 5:29 PM
[2016-12-28] MEDS ORDERED: OXYC1TAB3 PO (18:03)
[2016-12-28] MEDS ORDERED: HYDROmorphone INJ 0.5 MG/0.5 ML SYR IV STA (18:04)
[2016-12-28 19:14] VITALS: BP 143/76; PULSE 55; TEMP 36.9; O2SAT 98
--- NOTE | 2016-12-29 00:19 | EMERGENCY ROOM VISIT NOTE ---
History Report prepared by Irina: Kamilah Ruano Under the Supervision of: Dr. Yevgeniy Kyle M.D. First contact with patient: 15:07 Chief Complaint: CARDIAC ASSESSMENT Stated Complaint: RT LEG PAIN, PAIN BETWEEN SHOULDERS History of Present Illness The patient is a 66 year old male who presents to the Emergency Room with complaints of constant upper back pain that started two weeks ago. The pain is located between his shoulder blades and it is worse with inspiration. The patient states that he had stents placed two weeks ago and the pain has been there ever since then. The patient is also experiencing lower right leg pain that started four days ago. He states that the leg pain is getting worse. He rates his discomfort from the leg pain as a 9/10 in severity and he rates the discomfort from the back pain as an 8/10 in severity. Additionally, he is experiencing intermittent shortness of breath that seems to occur randomly. He has been unable to relieve the back or the leg pain with the tramadol or lidocaine patches that he was prescribed after the stent placement. Pt denies headache, fevers, chills, neck pain, leg swelling, vomiting, new abdominal pain , melena, hematochezia, bowel or bladder incontinence, numbness, weakness, rash , or other complaints. The patient states that he saw Dr. Bustamante - Orthopedic Surgery and he said that he needs a MRI of his back, but due to the recent stent placement he has to wait six weeks. The patient reports that he was supposed to see cardiology this Monday, but he couldn't take the pain anymore so he called the office and they told him to come into the ED. He also called his PCP and they also recommended that he come into the ED. The patient adds that he typically has low vitamin D and that "he does not have a colon," so he has trouble absorbing nutrients. Additionally, he states that he has nodules in his lungs, but he doesn't think that those are causing his symptoms. Source of History: patient Onset: two weeks ago Position: back (upper) Symptom Intensity: back pain 8/10, leg pain 9/10 Timing: constant Modifying Factors (Worsening): breathing (inspiration) Associated Symptoms: + SOB (intermittent) Note: worsening right lower leg pain Review of Systems See HPI for pertinent positives and negatives. A total of ten systems were reviewed and were otherwise negative. Past Medical & Surgical Medical Problems: (1) Abdominal aneurysm (2) Abscess (3) Back pain (4) CAD (coronary artery disease) (5) Chest pain (6) Colostomy (7) Coronary artery disease (8) Diverticulitis of colon (9) GI bleed (10) Kidney stone (11) Myocardial infarction (12) Pneumonia (13) sigmoid resection (14) Unstable angina Surgical Problems: (1) History of appendectomy (2) History of colectomy Family History Hypertension Social History Smoking Status: Current Some Day Smoker Alcohol Use: none Drug Use: none Marital Status: Housing Status: lives with significant other Occupation Status: retired Current/Historical Medications Scheduled Aspirin (Aspirin Ec), 81 MG PO DAILY Clopidogrel Bisulfate (Clopidogrel), 75 MG PO QAM Ergocalciferol (Vitamin D 67940 Unit), 50,000 UNIT PO twice a week Fluoxetine (Prozac), 10 MG PO HS Lisinopril (Lisinopril), 2.5 MG PO QAM Multiple Vitamins W/ Minerals (Mens 50+ Advanced), 1 CAP PO DAILY Omeprazole (Prilosec), 40 MG PO QAM Rosuvastatin Calcium (Crestor), 1 TAB PO DAILY Scheduled PRN Carisoprodol (Carisoprodol), 350 MG PO Q8H PRN for muscle pain/spasm of back Clonazepam (Klonopin), 0.5 MG PO HS PRN for RESTLESS LEGS Nitroglycerin (Nitrostat), 0.4 MG SL [id number] PRN for Chest Pain Oxycodone Ir (Roxicodone Ir), 1-2 TAB PO Q4H PRN for Pain Tramadol HCl (Tramadol HCl), 50 MG PO Q6H PRN for Pain Allergies Coded Allergies: Penicillins (Verified Allergy, Severe, SEVERE SWELLING, anaphylaxis, ) Metronidazole (Verified Allergy, Intermediate, swelling, 12/09/16) Physical Exam Vital Signs Date Time Temp Pulse Resp B/P Pulse Ox O2 Delivery O2 Flow Rate FiO2 12/28/16 19:14 36.9 55 18 143/76 98 12/28/16 18:20 55 18 143/76 98 Room Air 12/28/16 15:37 97 Room Air 12/28/16 15:37 97 Room Air 12/28/16 15:35 62 18 125/69 98 Room Air 12/28/16 15:14 96 Room Air 12/28/16 15:09 61 12/28/16 14:28 36.9 71 18 119/79 95 Room Air Physical Exam GENERAL: Awake, alert, uncomfortable-appearing, in no distress HENT: Normocephalic, atraumatic. Oropharynx unremarkable. EYES: Normal conjunctiva. Sclera non-icteric. NECK: Supple. No nuchal rigidity. FROM. No JVD. RESPIRATORY: Clear to auscultation. CARDIAC: Regular rate, normal rhythm. Extremities warm and well perfused. Pulses equal. ABDOMEN: Soft, non-distended. Mild left lower quadrant tenderness to palpation ( patient states has been there since 2012). No rebound or guarding. No masses. RECTAL: Deferred. MUSCULOSKELETAL: Chest examination reveals no tenderness. The back is symmetrical on inspection without obvious abnormality. Tenderness in rhomboid area between shoulder blades. There is no CVA tenderness to palpation. No joint edema. UPPER EXTREMITIES: Catheterization site from two weeks ago on right wrist. LOWER EXTREMITIES: Calves are equal size bilaterally and non-tender. No edema. No discoloration. NEURO: Normal sensorium. No sensory or motor deficits noted. SKIN: No rash or jaundice noted. Medical Decision & Procedures ER Provider Diagnostic Interpretation: X ray results as stated below per my interpretation and radiologist interpretation. Other radiology results as stated below per my review and radiologist interpretation: CHEST ONE VIEW PORTABLE IMPRESSION: No change in appearance of the chest. Stable interstitial thickening which is likely chronic. Electronically signed by: Charlie Obrien M.D. 12/28/2016 3:27 PM Dictated Date/Time: 12/28/2016 3:25 PM CHEST CTA for PULMONARY ARTERIES IMPRESSION: No evidence for pulmonary embolus. Subtle interstitial prominence throughout both hemithoraces Electronically signed by: Suhail Jernigan M.D. 12/28/2016 4:47 PM Dictated Date/Time: 12/28/2016 4:46 PM Venous Doppler right leg RIGHT VENOUS DOPP LOWER EXT UNILAT IMPRESSION: Normal study. Electronically signed by: Suhail Jernigan M.D. 12/28/2016 5:29 PM Dictated Date/Time: 12/28/2016 5:29 PM Laboratory Results 12/28/16 14:45 Red Blood Count 5.21, Mean Corpuscular Volume 86.0, Mean Corpuscular Hemoglobin 29.8, Mean Corpuscular Hemoglobin Concent 34.6, Mean Platelet Volume 10.3, Neutrophils (%) (Auto) 70.7, Lymphocytes (%) (Auto) 20.2, Monocytes (%) (Auto) 6.2, Eosinophils (%) (Auto) 2.1, Basophils (%) (Auto) 0.4, Neutrophils # (Auto) 6.03, Lymphocytes # (Auto) 1.72, Monocytes # (Auto) 0.53, Eosinophils # (Auto) 0.18, Basophils # (Auto) 0.03 Test 12/28/16 14:45 12/28/16 15:25 White Blood Count 8.52 K/uL (4.8-10.8) Red Blood Count 5.21 M/uL (4.7-6.1) Hemoglobin 15.5 g/dL (14.0-18.0) Hematocrit 44.8 % (42-52) Mean Corpuscular Volume 86.0 fL (80-100) Mean Corpuscular Hemoglobin 29.8 pg (25-34) Mean Corpuscular Hemoglobin Concent 34.6 g/dl (32-36) Platelet Count 186 K/uL (130-400) Mean Platelet Volume 10.3 fL (7.4-10.4) Neutrophils (%) (Auto) 70.7 % Lymphocytes (%) (Auto) 20.2 % Monocytes (%) (Auto) 6.2 % Eosinophils (%) (Auto) 2.1 % Basophils (%) (Auto) 0.4 % Neutrophils # (Auto) 6.03 K/uL (1.4-6.5) Lymphocytes # (Auto) 1.72 K/uL (1.2-3.4) Monocytes # (Auto) 0.53 K/uL (0.11-0.59) Eosinophils # (Auto) 0.18 K/uL (0-0.5) Basophils # (Auto) 0.03 K/uL (0-0.2) RDW Standard Deviation 41.0 fL (36.4-46.3) RDW Coefficient of Variation 13.0 % (11.5-14.5) Immature Granulocyte % (Auto) 0.4 % Immature Granulocyte # (Auto) 0.03 K/uL (0.00-0.02) Total Bilirubin 0.5 mg/dl (0.2-1) Direct Bilirubin 0.1 mg/dl (0-0.2) Aspartate Amino Transf (AST/SGOT) 11 U/L (15-37) Alanine Aminotransferase (ALT/SGPT) 22 U/L (12-78) Alkaline Phosphatase 78 U/L (45-117) Total Creatine Kinase 51 U/L (39-308) Creatine Kinase MB 0.5 ng/ml (0.5-3.6) Creatine Kinase MB Ratio 1.0 (0-3.0) Troponin I < 0.015 ng/ml (0-0.045) Total Protein 7.4 gm/dl (6.4-8.2) Albumin 3.7 gm/dl (3.4-5.0) Lipase 88 U/L (73-393) Bedside Hemoglobin 14.6 g/dl (14.0-18.0) Bedside Hematocrit 43 % (42-52) Bedside Sodium 140 mEq/L (135-144) Bedside Potassium 3.9 mEq/L (3.3-5.0) Bedside Chloride 101 mEq/L (101-112) Bedside Total CO2 25 mEq/l (24-31) Anion Gap 19.0 mmol/L (16-25) Bedside Blood Urea Nitrogen 11 mg/dl (7-18) Bedside Creatinine 0.8 mg/dl (0.6-1.3) Bedside Glucose (other) 85 mg/dl (70-99) Bedside Ionized Calcium (Pernell) 1.16 mmol/l (1.12-1.32) Laboratory results reviewed by me Medications Administered Medications (Trade) Dose Ordered Sig/[facility] Route Start Time Stop Time Status Last Admin Dose Admin Hydromorphone HCl (Dilaudid Inj) 1 mg Q15M PRN IV 12/28/16 15:30 12/28/16 20:05 DC 12/28/16 15:39 1 MG Ondansetron HCl 8 mg 8 mg NOW STAT IV 12/28/16 15:26 12/28/16 15:27 DC 12/28/16 15:38 8 MG Sodium Chloride (Nss 1000ml) 1,000 ml @ 999 mls/hr Q1H1M STAT IV 12/28/16 15:30 12/28/16 16:30 DC 12/28/16 15:38 999 MLS/HR Hydromorphone HCl (Dilaudid Inj) 0.5 mg NOW STAT IV 12/28/16 18:04 12/28/16 18:05 DC 12/28/16 18:18 0.5 MG ECG Indication: back/shoulder pain Rate (beats per minute): 65 Rhythm: normal sinus Findings: Q waves (Septal), no acute ischemic change, no ectopy ED Course 1524: The patient was evaluated in room B5. A complete history and physical exam was performed. 1526: Ordered Ondansetron HCl 8 mg IV 1530: Ordered Sodium Chloride 1000 ml @ 999 mls/hr IV, Dilaudid Inj 1 mg IV 1754: I reevaluated the patient. Discussed results and discharge instructions: he verbalized understanding and agreement. The patient is ready for discharge. 1804: Ordered Dilaudid Inj 0.5 mg IV Medical Decision Triage Nursing notes reviewed. The patient's presentation and history were concerning for back pain and leg pain. The patient notes he has had this back pain since being in the hospital. This was documented on record review. The patient has been referred to orthopedic spine. Etiologies such as musculoskeletal, cardiac, pneumonia, PE, herniated disc, fracture, as well as others were entertained. The patient was evaluated. He was treated with Dilaudid and Zofran. On reassessment he was feeling much better. His pain is reproducible. He had an ultrasound of the leg which was unremarkable. CT imaging did not reveal any evidence of dissection or thoracic abnormality. Cardiac markers were negative. Blood work was unremarkable. He seems to be most consistent with musculoskeletal etiology. The right lower extremity has no significant abnormalities on physical examination. He thinks that he may have been walking on this funny because of the pain in his back. He has a pending follow-up with orthopedic spine. The patient was mainly looking for relief of his discomfort. I did offer him a small amount of pain medication by prescription and the patient was in agreement. If he worsens in any way he will be back. He will follow-up as an outpatient. I gave my usual and customary discussion regarding this issue. By the evaluation outlined above other emergent etiologies such as those listed in the differential, as well as others, were deemed relatively unlikely. The patient was informed about the findings as listed above. All questions were answered and he was pleased with the treatment. Return instructions were outlined and the patient was discharged in stable condition. The patient was referred to his PCP and orthopedics for follow-up for a recheck of the current condition. The chart was completed utilizing [employer] Speech voice recognition software. Grammatical errors, random word insertions, pronoun errors, and incomplete sentences are an occasional consequence of this system due to software limitations, ambient noise, and hardware issues. Any formal questions or concerns about the content, text, or information contained within the body of this dictation should be directly addressed to the physician for clarification. Impression Primary Impression: Thoracic back pain Additional Impression: Pain of right lower leg Scribe Attestation The scribe's documentation has been prepared under my direction and personally reviewed by me in its entirety. I confirm that the note above accurately reflects all work, treatment, procedures, and medical decision making performed by me. Departure Information Dispostion Home / Self-Care Prescriptions Oxycodone Ir (Roxicodone Ir) 5 Mg Tab 1-2 TAB PO Q4H Y for Pain, #15 TAB Prov: Yevgeniy Kyle MD 12/28/16 Referrals Mariah Lewis C.R.N.P (PCP) Forms IMPORTANT VISIT INFORMATION Patient Instructions My [facility] Additional Instructions DO NOT drive, drink alcohol, operate machinery, or perform dangerous activities today. You were given medications in the ER that can affect your ability to safely function or operate a vehicle. Oxycodone (OxyIR) 5mg: Take 1-2 pills every four hours for breakthrough pain. Avoid alcohol, operating machinery or dangerous equipment, working on ladders or roofs, DRIVING, or situations where being under the influence may be dangerous. It is recommended to use an nyof-hbo-dzqdfqe stool softener such as Colace, 100mg twice daily while taking this medication to avoid constipation. Acetaminophen(Tylenol) may be used for fever or pain. Use 1000mg every six hours as needed. Avoid using more than 4000mg in a 24 hour period. Rest and drink plenty of fluids as tolerated. Continue current medications. Do not use the Klonopin and oxycodone at the same time. Do not use the tramadol and the oxycodone at the same time. Avoid strenuous activities and anything that worsens your pain. Resume normal activities once your symptoms resolve. Return to the ER immediately for worsening or persistent back pain, chest pain, abdominal pain, vomiting, fevers, chest pains, difficulty breathing, worsening of your condition, or as needed. Follow up with your primary physician in one to 2 days for a recheck of your current condition. Problem Qualifiers Primary Impression: Thoracic back pain Chronicity: acute Back pain laterality: midline Qualified Codes: M54.6 - Pain in thoracic spine
[2017-05-26] MEDS ORDERED: RXC5 PO (11:37)
== END 2016-12-28 18:30 | disposition home or self-care (01) ==
LOC: C.EDB 14:25
DX: M54.6 Pain in thoracic spine (principal); M79.661 Pain in right lower leg; F17.200 Nicotine dependence, unspecified, uncomplicated; I25.10 Atherosclerotic heart disease of native coronary artery without angina pectoris; I25.2 Old myocardial infarction; Z79.82 Long term (current) use of aspirin

== ENCOUNTER 2017-01-20 11:34 | Emergency (ER) | payer OTHER ==
[~2017-01-20 11:34] MED LIST changes: -LDDP5 TD; -ULT50X PO
[2017-01-20 11:44] VITALS: BP 141/78; TEMP 36.8; Ht 182.9 cm
--- NOTE | 2017-01-20 12:12 | EMERGENCY ROOM VISIT NOTE ---
ED Visit Note First contact with patient: 11:49 Patient was seen by our PA/SH[employer]. I was involved in the patient's care and did evaluate the patient myself. I was involved in the care throughout the ER stay. The patient has a fractured tooth to the right lower mid jaw. There is no evidence for swelling to the floor of the mouth. No drainable abscess. He is already on antibiotics and some pain medication. Dental wax for comfort and will be added, he may require a change in his pain medications.
[2017-01-20] MEDS ORDERED: OXYCODONE HCL IR 5 MG TAB (IMMEDIATE RELEASE) PO STA (12:14)
[2017-01-20] MEDS ORDERED: OXYC1TAB3 PO (12:18)
[2017-01-20 12:28] VITALS: PULSE 79; O2SAT 94
--- NOTE | 2017-01-20 17:46 | EMERGENCY ROOM VISIT NOTE ---
ED Visit Note First contact with patient: 11:49 CHIEF COMPLAINT: Tooth and jaw pain. HISTORY OF PRESENT ILLNESS: Mr. Jackson is a 66-year-old white male who ambulates into the ED complaining of right mandibular dental pain. He reports approximately one week ago he broke tooth 29 while chewing food. He called his dentist and had an appointment yesterday. He was placed on clindamycin for antibiotic coverage and given a prescription of Lortab for his pain. Patient reports throughout the night he has had progressive worsening of his dental pain and was not able to sleep. He describes his pain as a sharp and throbbing sensation over the mandible on the right. The pain is radiating into the postauricular area. His pain worsens with chewing, palpation and exposure to hot and cold materials. He has not identified any alleviating factors related to the pain. He has been using his Lortab without relief of his discomfort. He denies any associated symptoms including fevers, chills, sweats , facial swelling, facial erythema, no trauma to the tooth, oral cavity swelling , sore throat, difficulty swallowing, drooling, painful talking, voice changes, nausea, vomiting, cough, shortness of breath. REVIEW OF SYSTEMS: As noted above in History of Present Illness. 8 body systems were reviewed with this patient and found to be negative unless noted above otherwise. PMH: (1) Abdominal aneurysm (2) Abscess (3) Back pain (4) CAD (coronary artery disease) (5) Chest pain (6) Colostomy (7) Coronary artery disease (8) Diverticulitis of colon (9) GI bleed (10) Kidney stone (11) Myocardial infarction (12) Pneumonia (13) sigmoid resection (14) Unstable angina Surgical Problems: (1) History of appendectomy (2) History of colectomy . CURRENT MEDICATION: Medications Dose Route/Sig Max Daily Dose Days Date Category Dose Instructions Prilosec (Omeprazole) 40 Mg Cap 40 Mg PO QAM 12/16/16 Rx Crestor (Rosuvastatin Calcium) 40 Mg Tab 1 Tab PO DAILY 30 12/16/16 Rx Nitrostat (Nitroglycerin) 0.4 Mg/1 Tab Subl 0.4 Mg SL [id number] PRN 12/16/16 Rx maximum 3 in 15 minutes Lisinopril 2.5 Mg Tab 2.5 Mg PO QAM 12/16/16 Rx Clopidogrel (Clopidogrel Bisulfate) 75 Mg Tab 75 Mg PO QAM 12/16/16 Rx Carisoprodol 350 Mg Tab 350 Mg PO Q8H PRN 12/16/16 Rx Vitamin D 69193 Unit (Ergocalciferol) 50,000 Unit Cap 50,000 Unit PO TWICE A WEEK 12/16/16 Rx Prozac (Fluoxetine HCl) 10 Mg Cap 10 Mg PO HS 11/21/16 Reported Klonopin (Clonazepam) 0.5 Mg Tab 0.5 Mg PO HS PRN 10/10/16 Reported Aspirin Ec (Aspirin) 81 Mg Tab 81 Mg PO DAILY 10/01/14 Reported Mens 50+ Advanced (Multiple Vitamins W/ Minerals) 1 Cap Cap 1 Cap PO DAILY 02/18/14 Reported . ALLERGIES TO MEDICATION: Penicillin, metronidazole. SOCIAL HISTORY: Patient is not employed; he feels safe in his home environment ; he denies tobacco use. PHYSICAL EXAM: Vital Signs: Date Time Temp Pulse Resp B/P Pulse Ox O2 Delivery O2 Flow Rate FiO2 01/20/17 12:28 79 18 94 Room Air 01/20/17 11:44 36.8 75 18 141/78 94 Room Air General: 66 year-old white female in moderate distress due to pain, nontoxic appearing, afebrile and hemodynamically stable. Neurological: Awake, alert and oriented to person, place and time. Answering questions appropriately and following commands. Normal gait. Good hand eye coordination. No focal motor or sensory deficits. Skin: Warm, dry and pink. No soft tissue lesions, rashes, or trauma noted. HEENT: Atraumatic and normocephalic. No facial swelling or erythema. Oral cavity is moist and pink. Airway is patent. Uvula is midline and no abscesses are seen. Speech is normal. No drooling. Patient has multiple decaying teeth. Tooth #29 is broken. The gingiva is mildly erythematous and edematous. There is no palpable abscess in the area or under the tongue. No cervical or submandibular lymphadenopathy. ED COURSE: Patient is assessed as noted above. Patient is educated about his findings and instructed on he treatment plan; he verbalizes understanding and agreement with this plan. CLINIC IMPRESSION: Dental pain. DISPOSITION: Patient discharged home in stable condition; prior to departure he was reassessed and subjectively reported she was feeling the same. PLAN: Patient was encouraged to continue his antibiotics as prescribed. Patient was placed on a sliding pain scale of acetaminophen and OxyIR; alternated every 3 hours as needed for pain. Appropriate narcotic precautions were discussed with the patient. Patient was encouraged use of dental wax over his tooth while eating. Patient was encouraged to keep his upcoming appointment with dentistry for definitive care and treatment. Patient was educated on signs of dental infections and encouraged return the ED for any signs of worsening symptoms, uncontrolled pain or any new/concerning symptoms.
[2017-05-26] MEDS ORDERED: RXC5 PO (11:37)
== END 2017-01-20 12:28 | disposition home or self-care (01) ==
LOC: C.EDB 11:35 → C.EDD 12:28
DX: K08.89 Other specified disorders of teeth and supporting structures (principal); I25.10 Atherosclerotic heart disease of native coronary artery without angina pectoris; I25.2 Old myocardial infarction; Z79.82 Long term (current) use of aspirin; Z93.3 Colostomy status

== ENCOUNTER → 2017-02-27 | Outpatient (CLI) | payer OTHER ==
[~2017-02-27] MED LIST changes: +CLOP1TAB15 PO; +GABA-112 PO; +LISI-789 PO; +NAPR-1169 PO; +NTRGSL/4 SL; +OXYC1TAB3 PO; +PRED20TA PO; +RXC5 PO
[2017-02-27 17:53] LABS: CHOLESTEROL/HDL RATIO 4.7
--- NOTE | 2017-03-03 10:28 | CODING QUERY MEDICAL NECESSITY ---
CQSUPPORTING DIAGNOSIS NEEDED A supporting diagnosis is required for the test/procedure performed on this patient in order for us to be reimbursed by the patient's insurance. Please provide a supporting diagnosis for the following test/procedure listed below next to the test name along with your signature. *If there is no additional diagnosis for this patient that would support the following test/procedure please document that below next to the test/procedure. Test(s)/Procedure(s) that require a supporting diagnosis: DOS 02/27/17 VITAMIN D TEST Provider Signature: Date: Thank you Bettie Jones Health Information Management Once completed, please kindly fax back to [phone] For questions please call [phone]
== END | disposition home or self-care (01) ==
LOC: C.LABPVFM 15:11
PROVIDERS: ATTEND Nurse Practitioner
DX: E78.5 Hyperlipidemia, unspecified (principal); E55.9 Vitamin D deficiency, unspecified

== ENCOUNTER → 2017-04-21 | Outpatient (CLI) | payer OTHER ==
[2017-04-21 17:18] LABS: LYME DISEASE AB IGG NEG (NEG); LYME DISEASE AB IGM NEG (NEG)
== END | disposition home or self-care (01) ==
LOC: C.LAB1850 13:52
PROVIDERS: ATTEND Psychiatry & Neurology Neurology
DX: R51 Headache (principal)

== ENCOUNTER → 2017-04-25 | Outpatient (CLI) | payer OTHER ==
--- NOTE | 2017-04-25 12:27 | DIAGNOSTIC IMAGING REPORT ---
Brain MRI WITHOUT CONTRAST HISTORY: Headaches G45.9 Transient ischemic attack (TIA)R51 New onset of headaches TECHNIQUE: Multiplanar multisequence MRI of the brain was performed without the use of contrast. COMPARISON STUDY: 01/30/2016 FINDINGS: There are no areas of restricted diffusion to suggest acute infarction. The midline structures are intact. The paranasal sinuses are clear. The mastoid air cells are clear. The ventricles and sulci are within normal limits for age. There is no mass, hematoma, midline shift. The major vascular flow-voids at the skull base are well maintained. IMPRESSION: No acute intracranial abnormality. Negative MRI of the brain. Sinuses are now clear Electronically signed by: Suhail Jernigan M.D. 04/25/2017 12:26 PM Dictated Date/Time: 04/25/2017 12:23 PM
== END ==
LOC: C.MRIBC 11:20
PROVIDERS: ATTEND Psychiatry & Neurology Neurology
DX: G45.9 Transient cerebral ischemic attack, unspecified (principal); R51 Headache

== ENCOUNTER 2017-05-03 16:52 | Emergency (ER) | payer OTHER ==
[~2017-05-03] VITALS: Ht 182.9 cm; Wt 88.0 kg
[~2017-05-03 16:52] MED LIST changes: -CLOP1TAB15 PO; -GABA-112 PO; -LISI-789 PO; -NAPR-1169 PO; -NTRGSL/4 SL; -PRED20TA PO; -RXC5 PO
[2017-05-03 16:58] VITALS: Ht 182.9 cm; Wt 88.0 kg
[2017-05-03] MEDS ORDERED: SODIUM CHLORIDE 0.9% 500ML 500 ML IV STA (17:07)
[2017-05-03] MEDS ORDERED: KETOROLAC TROMETHAMINE 30 MG/ML VIAL IV STA (17:07)
[2017-05-03] MEDS ORDERED: ONDANSETRON INJ 2 MG/ML 2 ML VIAL IV STA (17:07)
[2017-05-03] MEDS ORDERED: SODIUM CHLORIDE 0.9% 1000ML 1,000 ML IV STA (17:07)
[2017-05-03] MEDS ORDERED: HYDROmorphone INJ 2 MG/ML SYR/VIAL IV STA ×2 (17:07→19:02)
[2017-05-03] MEDS ORDERED: GABA-112 PO (17:49)
--- NOTE | 2017-05-03 17:49 | DIAGNOSTIC IMAGING REPORT ---
CHEST ONE VIEW PORTABLE CLINICAL HISTORY: Shortness of breath. COMPARISON STUDY: 12/28/2016 FINDINGS: The heart is borderline enlarged. There is no failure. There is no focal pulmonary consolidation. There are no pleural effusions.[ Interstitial thickening is less pronounced than on the prior study. IMPRESSION: No active disease in the chest. Electronically signed by: Hans Morin M.D. 05/03/2017 5:48 PM Dictated Date/Time: 05/03/2017 5:47 PM
--- NOTE | 2017-05-03 17:50 | DIAGNOSTIC IMAGING REPORT ---
RIGHT SHOULDER MIN 2 VIEWS ROUTINE CLINICAL HISTORY: Right shoulder pain COMPARISON: None. DISCUSSION: No fractures or dislocations are visualized. There are no destructive lesions. There are mild degenerative changes within the AC joint. IMPRESSION: Mild degenerative change. No fractures or destructive lesions are visualized. Electronically signed by: Hans Morin M.D. 05/03/2017 5:49 PM Dictated Date/Time: 05/03/2017 5:48 PM
--- NOTE | 2017-05-03 17:51 | DIAGNOSTIC IMAGING REPORT ---
RIGHT KNEE 3 VIEWS CLINICAL HISTORY: Right knee pain COMPARISON: None. DISCUSSION: The bones are mildly osteopenic. There are mild osteoarthritic changes most pronounced within the medial joint compartment and patellofemoral joint. There is a small dorsal patellar spur. There are no acute fractures. IMPRESSION: Osteoarthritic change. No acute fractures. Electronically signed by: Hans Morin M.D. 05/03/2017 5:49 PM Dictated Date/Time: 05/03/2017 5:49 PM
[2017-05-03 18:15] LABS: BASO % 0.4 %; BASO ABS # 0.03 K/uL (0-0.2); COMPLETE YES; EOS % 1.3 %; HEMATOCRIT 48.1 % (42-52); IG% 0.4 %; LYMPH % 21.1 %; LYMPH ABS # 1.79 K/uL (1.2-3.4); MEAN CELL VOLUME 89.1 fL (80-100); MEAN CORPUSCULAR HEMOGLOBIN 30.4 pg (25-34); MEAN CORPUSCULAR HGB CONC 34.1 g/dl (32-36); MONO % 4.8 %; PLATELET COUNT 158 K/uL (130-400); WHITE BLOOD COUNT 8.47 K/uL (4.8-10.8)
--- NOTE | 2017-05-03 18:16 | EMERGENCY ROOM VISIT NOTE ---
History Report prepared by Irina: Darien Howard Under the Supervision of: Dr. Kj Hull M.D. First contact with patient: 16:59 Chief Complaint: NAUSEA Stated Complaint: PAIN DOWN R ARM/LEG/BACK, CHEST TIGHTNESS,NAUSEA Nursing Triage Summary: triage note: pt reports "i have pain in my right arm, right leg and across my back since yesterday." pt reports nausea. pt reports generalized weakness and "i can barely walk on this right leg." History of Present Illness The patient is a 66 year old male who presents to the Emergency Room with complaints of persistent pain since yesterday. The patient describes pain in his right arm and right leg as well as across his back. The pain in his leg is worsened with walking and the arm pain is worse when he raises it. The patient also complains of nausea, which he believes could be secondary to pain. The pain started in the afternoon yesterday, not when he woke up. He denies fevers, cough or congestion, vomiting, abnormal stools, or urinary symptoms. The patient denies any recent falls or injuries. He does not have history of arm or shoulder problems. The patient does have knee problems at baseline secondary to arthritis. He does have a murmur. The patient recently had a negative Lyme Disease test. He had coronary stents placed approximately 5 months ago. The patient had a normal brain MRI last week, which was ordered because of recurrent headaches. The patient is not diabetic. The patient is on Plavix and Aspirin as well as Prilosec. Source of History: patient Onset: yesterday Position: arm (right), back, leg (right) Timing: other (persistent) Modifying Factors (Worsening): movement Associated Symptoms: + nausea, No fevers, No cough, No vomiting, No urinary symptoms Review of Systems See HPI for pertinent positives & negatives. A total of 10 systems reviewed and were otherwise negative. Past Medical & Surgical Medical Problems: (1) Abdominal aneurysm (2) Abscess (3) Back pain (4) CAD (coronary artery disease) (5) Chest pain (6) Colostomy (7) Coronary artery disease (8) Diverticulitis of colon (9) GI bleed (10) Kidney stone (11) Myocardial infarction (12) Pneumonia (13) sigmoid resection (14) Unstable angina Surgical Problems: (1) History of appendectomy (2) History of colectomy Family History Hypertension Social History Smoking Status: Former Smoker Alcohol Use: none Drug Use: none Marital Status: Housing Status: lives with significant other Occupation Status: retired Current/Historical Medications Scheduled Aspirin (Aspirin Ec), 81 MG PO DAILY Clopidogrel Bisulfate (Clopidogrel), 75 MG PO QAM Fluoxetine (Prozac), 10 MG PO HS Lisinopril (Lisinopril), 2.5 MG PO QAM Multiple Vitamins W/ Minerals (Mens 50+ Advanced), 1 CAP PO DAILY Omeprazole (Prilosec), 40 MG PO QAM Prednisone (Prednisone), 1 TAB PO DAILY Rosuvastatin Calcium (Crestor), 1 TAB PO DAILY Scheduled PRN Clonazepam (Klonopin), 0.5 MG PO HS PRN for RESTLESS LEGS Gabapentin (Neurontin), 100 MG PO TID PRN for PRN Nitroglycerin (Nitrostat), 0.4 MG SL [id number] PRN for Chest Pain Oxycodone Ir (Roxicodone Ir), 1 TAB PO Q4H PRN for Pain Allergies Coded Allergies: Penicillins (Verified Allergy, Severe, SEVERE SWELLING, anaphylaxis, ) Metronidazole (Verified Allergy, Intermediate, swelling, 05/03/17) Physical Exam Vital Signs Date Time Temp Pulse Resp B/P (MAP) Pulse Ox O2 Delivery O2 Flow Rate FiO2 05/03/17 16:58 36.7 73 18 136/87 96 Room Air Physical Exam GENERAL: Patient is in no acute distress. HEENT: No acute trauma, normocephalic atraumatic, mucous membranes moist, no nasal congestion, no scleral icterus. NECK: No stridor, no adenopathy, no meningismus, trachea is midline. LUNGS: Clear to auscultation bilaterally, no wheeze, no rhonchi, breath sounds equal. HEART: 2/6 systolic murmur, regular rate and rhythm. BACK: Tender over right scapular musculature, no rash. ABDOMEN: Soft, nontender, bowel sounds positive, no hernias, no peritonitis. EXTREMITIES: Pain to palpate around the right shoulder, no rash or evidence for dislocation, pain worsens with movement of the shoulder. Pain to palpate around the right anterior knee, no large joint effusion, no erythema to suggest infection. NEUROLOGIC: Oriented x 3, no acute motor or sensory deficits, no focal weakness. SKIN: No rash, no jaundice, no diaphoresis. Medical Decision & Procedures ER Provider Diagnostic Interpretation: X-ray results as stated below per interpretation by me and the radiologist: CHEST ONE VIEW PORTABLE CLINICAL HISTORY: Shortness of breath. COMPARISON STUDY: 12/28/2016 FINDINGS: The heart is borderline enlarged. There is no failure. There is no focal pulmonary consolidation. There are no pleural effusions.[ Interstitial thickening is less pronounced than on the prior study. IMPRESSION: No active disease in the chest. Electronically signed by: Hans Morin M.D. 05/03/2017 5:48 PM Dictated Date/Time: 05/03/2017 5:47 PM RIGHT KNEE 3 VIEWS CLINICAL HISTORY: Right knee pain COMPARISON: None. DISCUSSION: The bones are mildly osteopenic. There are mild osteoarthritic changes most pronounced within the medial joint compartment and patellofemoral joint. There is a small dorsal patellar spur. There are no acute fractures. IMPRESSION: Osteoarthritic change. No acute fractures. Electronically signed by: Hans Morin M.D. 05/03/2017 5:49 PM Dictated Date/Time: 05/03/2017 5:49 PM RIGHT SHOULDER MIN 2 VIEWS ROUTINE CLINICAL HISTORY: Right shoulder pain COMPARISON: None. DISCUSSION: No fractures or dislocations are visualized. There are no destructive lesions. There are mild degenerative changes within the AC joint. IMPRESSION: Mild degenerative change. No fractures or destructive lesions are visualized. Electronically signed by: Hans Morin M.D. 05/03/2017 5:49 PM Dictated Date/Time: 05/03/2017 5:48 PM Laboratory Results 05/03/17 17:45 Red Blood Count 5.40, Mean Corpuscular Volume 89.1, Mean Corpuscular Hemoglobin 30.4, Mean Corpuscular Hemoglobin Concent 34.1, Mean Platelet Volume 10.0, Neutrophils (%) (Auto) 72.0, Lymphocytes (%) (Auto) 21.1, Monocytes (%) (Auto) 4.8, Eosinophils (%) (Auto) 1.3, Basophils (%) (Auto) 0.4, Neutrophils # (Auto) 6.10, Lymphocytes # (Auto) 1.79, Monocytes # (Auto) 0.41, Eosinophils # (Auto) 0.11, Basophils # (Auto) 0.03 05/03/17 17:45 Test 05/03/17 17:45 White Blood Count 8.47 K/uL (4.8-10.8) Red Blood Count 5.40 M/uL (4.7-6.1) Hemoglobin 16.4 g/dL (14.0-18.0) Hematocrit 48.1 % (42-52) Mean Corpuscular Volume 89.1 fL (80-100) Mean Corpuscular Hemoglobin 30.4 pg (25-34) Mean Corpuscular Hemoglobin Concent 34.1 g/dl (32-36) Platelet Count 158 K/uL (130-400) Mean Platelet Volume 10.0 fL (7.4-10.4) Neutrophils (%) (Auto) 72.0 % Lymphocytes (%) (Auto) 21.1 % Monocytes (%) (Auto) 4.8 % Eosinophils (%) (Auto) 1.3 % Basophils (%) (Auto) 0.4 % Neutrophils # (Auto) 6.10 K/uL (1.4-6.5) Lymphocytes # (Auto) 1.79 K/uL (1.2-3.4) Monocytes # (Auto) 0.41 K/uL (0.11-0.59) Eosinophils # (Auto) 0.11 K/uL (0-0.5) Basophils # (Auto) 0.03 K/uL (0-0.2) RDW Standard Deviation 43.0 fL (36.4-46.3) RDW Coefficient of Variation 13.3 % (11.5-14.5) Immature Granulocyte % (Auto) 0.4 % Immature Granulocyte # (Auto) 0.03 K/uL (0.00-0.02) Anion Gap 6.0 mmol/L (3-11) Est Creatinine Clear Calc Drug Dose 85.8 ml/min Estimated GFR () 98.8 Estimated GFR (Non- 85.2 BUN/Creatinine Ratio 16.1 (10-20) Calcium Level 8.6 mg/dl (8.5-10.1) Troponin I < 0.015 ng/ml (0-0.045) Laboratory results reviewed by me. Medications Administered Medications (Trade) Dose Ordered Sig/Alan Route Start Time Stop Time Status Last Admin Dose Admin Sodium Chloride 500 ml @ 999 mls/hr Q31M STAT IV 05/03/17 17:07 05/03/17 17:37 DC 05/03/17 17:50 999 MLS/HR Hydromorphone HCl (Dilaudid Inj) 0.5 mg NOW STAT IV 05/03/17 17:07 05/03/17 17:12 DC 05/03/17 17:52 0.5 MG Ketorolac Tromethamine (Toradol Inj) 30 mg NOW STAT IV 05/03/17 17:07 05/03/17 17:12 DC 05/03/17 17:51 30 MG Ondansetron HCl (Zofran Inj) 4 mg NOW STAT IV 05/03/17 17:07 05/03/17 17:12 DC 05/03/17 17:50 4 MG Sodium Chloride 1,000 ml @ 200 mls/hr Q5H STAT IV 05/03/17 17:07 05/03/17 22:06 05/03/17 17:49 200 MLS/HR ECG Indication: back/shoulder pain Rate (beats per minute): 62 Rhythm: normal sinus Findings: no acute ischemic change, no ectopy, other (old septal infarct) Comparison ECG Date: 2016 Change: no significant change ED Course 0: Past medical records reviewed. The patient had cardiac stenting in November. He had a normal brain MRI and clear sinuses on April 25. 1704: The patient was evaluated in room B9. A complete history and physical exam was performed. 1706: NSS 1000 ml @ 200 mls/hr, Zofran 4 mg IV, Toradol 30 mg IV, Dilaudid 0.5 mg IV, NSS 500 ml @ 999 mls/hr. 1899: Reevaluated the patient. Discussed results and discharge instructions: He verbalized understanding and agreement. The patient is ready for discharge. 1901: Dilaudid 0.5 mg IV, Prednisone 40 mg PO. Medical Decision Differential diagnosis includes arthritis or calcific tendonitis, bursitis, dislocation, fracture, pneumonia, dehydration, cardiac ischemia, acute on chronic pain. Blood pressure screening: Patient was found to have a slightly elevated blood pressure, likely due to pain. I do not believe that the patient requires hypertension monitoring. Medication Reconciliation: I attest that I have personally reviewed the patient' s current medication list. There is no leukocytosis or concerning anemia. No significant electrolyte abnormality or kidney failure. EKG shows a sinus rhythm with some old changes, no acute ischemia. Cardiac enzyme testing times one is not consistent with acute cardiac injury. Chest x-ray does not show pneumonia or mediastinal widening. There was no free air. Right shoulder and right knee films were done , there was some arthritis to both joints, no dislocation, no fracture. Clinically, there was no evidence for rash or cellulitis. The patient received IV saline, IV Toradol, IV Dilaudid. He required a second dose of IV Dilaudid and was given some oral steroids. The patient's pain is likely musculoskeletal. He has had some issues with his right knee before. He is being discharged on a low dose of prednisone, oxycodone for severe pain, ice was suggested. He will see his family doctor in follow-up and I have suggested an orthopedic evaluation as well. [place] Drug Monitoring Program Search Results: patient reviewed within database, no issues identified Impression Primary Impression: Right shoulder pain Additional Impression: Right knee pain Scribe Attestation The scribe's documentation has been prepared under my direction and personally reviewed by me in its entirety. I confirm that the note above accurately reflects all work, treatment, procedures, and medical decision making performed by me. Departure Information Dispostion Home / Self-Care Prescriptions Prednisone (Prednisone) 20 Mg Tab 1 TAB PO DAILY for 5 Days, #5 TAB Prov: Kj Hull M.D. 05/03/17 Oxycodone Ir (Roxicodone Ir) 5 Mg Tab 1 TAB PO Q4H Y for Pain, #8 TAB Prov: Kj Hull M.D. 05/03/17 Referrals Mariah Lewis C.R.N.P (PCP) Forms HOME CARE DOCUMENTATION FORM, IMPORTANT VISIT INFORMATION Patient Instructions My [facility] Additional Instructions prednisone daily for 5 more days--next dose tomorrow oxy ir 1 tab every 4 hours for severe pain ice the sore areas return if worsening see david marvin for a recheck, consider seeing orthopedics as well lab testing today was all ok Problem Qualifiers
[2017-05-03 18:38] LABS: BLOOD UREA NITROGEN 15 mg/dl (7-18); BUN/CREATININE RATIO 16.1 (10-20); CALCIUM 8.6 mg/dl (8.5-10.1); CARBON DIOXIDE 27 mmol/L (21-32); CHLORIDE 106 mmol/L (98-107); CREATININE 0.93 mg/dl (0.60-1.40); GLUCOSE 77 mg/dl (70-99); POTASSIUM 3.9 mmol/L (3.5-5.1); SODIUM 139 mmol/L (136-145)
[2017-05-03] MEDS ORDERED: OXYC1TAB3 PO (19:05)
[2017-05-03] MEDS ORDERED: PRED20TA PO (19:05)
[2017-05-03 19:24] VITALS: BP 131/81; PULSE 67; TEMP 36.7; O2SAT 96
[2017-05-26] MEDS ORDERED: RXC5 PO (11:37)
== END 2017-05-03 19:24 | disposition home or self-care (01) ==
LOC: C.EDB 16:53
DX: M25.511 Pain in right shoulder (principal); M25.561 Pain in right knee; R01.1 Cardiac murmur, unspecified; Z95.5 Presence of coronary angioplasty implant and graft; Z79.01 Long term (current) use of anticoagulants; Z79.899 Other long term (current) drug therapy; I25.10 Atherosclerotic heart disease of native coronary artery without angina pectoris; Z90.49 Acquired absence of other specified parts of digestive tract; Z93.3 Colostomy status; Z87.442 Personal history of urinary calculi; I25.2 Old myocardial infarction; Z87.01 Personal history of pneumonia (recurrent); Z82.49 Family history of ischemic heart disease and other diseases of the circulatory system; Z87.891 Personal history of nicotine dependence; Z79.82 Long term (current) use of aspirin

== ENCOUNTER 2017-05-07 16:25 | Emergency (ER) | payer OTHER ==
[~2017-05-07] VITALS: Ht 182.9 cm; Wt 89.3 kg
[~2017-05-07 16:25] MED LIST changes: -ERGO500037 PO; +GABA-112 PO; +PRED20TA PO; -SM350 PO
[2017-05-07 16:47] VITALS: O2SAT 93
[2017-05-07 16:48] VITALS: Ht 182.9 cm; Wt 89.3 kg
[2017-05-07] MEDS ORDERED: ACETAMINOPHEN IV 100 ML IV STA (17:05)
[2017-05-07 17:26] LABS: BASO % 0.4 %; BASO ABS # 0.04 K/uL (0-0.2); COMPLETE YES; EOS % 1.4 %; HEMATOCRIT 46.3 % (42-52); IG% 0.3 %; LYMPH % 26.8 %; LYMPH ABS # 2.46 K/uL (1.2-3.4); MEAN CELL VOLUME 90.4 fL (80-100); MEAN CORPUSCULAR HEMOGLOBIN 30.3 pg (25-34); MEAN CORPUSCULAR HGB CONC 33.5 g/dl (32-36); MEAN PLATELET VOLUME 9.9 fL (7.4-10.4); MONO % 7.3 %; NEUT % 63.8 %; PLATELET COUNT 157 K/uL (130-400); RED BLOOD COUNT 5.12 M/uL (4.7-6.1); WHITE BLOOD COUNT 9.17 K/uL (4.8-10.8)
[2017-05-07 17:32] LABS: PROTHROMBIN TIME (PATIENT) 10.7 SECONDS (9.0-12.0)
--- NOTE | 2017-05-07 17:38 | DIAGNOSTIC IMAGING REPORT ---
CHEST 2 VIEWS ROUTINE CLINICAL HISTORY: trauma, left rib pain pain COMPARISON STUDY: 05/03/2017 FINDINGS: Mild interval interstitial infiltrate left base and left lower lobe distribution. Mild stable cardiomegaly. Lungs otherwise appear clear. IMPRESSION: Interstitial infiltrate left lower lobe. Electronically signed by: Suhail Jernigan M.D. 05/07/2017 5:37 PM Dictated Date/Time: 05/07/2017 5:36 PM
[2017-05-07 17:41] LABS: ALT/SGPT 20 U/L (12-78); AST/SGOT 10 U/L (15-37); BLOOD UREA NITROGEN 19 mg/dl (7-18); BUN/CREATININE RATIO 18.8 (10-20); CALCIUM 8.7 mg/dl (8.5-10.1); CARBON DIOXIDE 27 mmol/L (21-32); CHLORIDE 108 mmol/L (98-107); GLUCOSE 78 mg/dl (70-99); POTASSIUM 4.1 mmol/L (3.5-5.1); SODIUM 143 mmol/L (136-145)
[2017-05-07 17:46] LABS: ALKALINE PHOSPHATASE 75 U/L (45-117)
[2017-05-07] MEDS ORDERED: SODIUM CHLORIDE 0.9% 1000ML 1,000 ML IV STA (17:46)
[2017-05-07] MEDS ORDERED: OPTIRAY 320 IV PRN (18:00)
[2017-05-07] MEDS ORDERED: MoRPHine SULFATE 4 MG/ML 1 ML CARP\\VIAL IV STA (18:06)
--- NOTE | 2017-05-07 18:34 | DIAGNOSTIC IMAGING REPORT ---
CHEST CT WITH CONTRAST CT DOSE: HISTORY: Trauma chest trauma, infiltrate on cx TECHNIQUE: Multiaxial CT images of the chest were performed following the intravenous administration of contrast. COMPARISON: None. FINDINGS: Minimal interstitial changes in the lung bases. Lungs otherwise are clear. No evidence for pneumothorax. No significant hilar or mediastinal adenopathy. Thoracic aorta is negative for aneurysm or dissection. The osseous structures appear intact. IMPRESSION: Minimal bibasilar interstitial change. CT of the chest is otherwise negative. Electronically signed by: Suhail Jernigan M.D. 05/07/2017 6:33 PM Dictated Date/Time: 05/07/2017 6:32 PM
--- NOTE | 2017-05-07 18:41 | DIAGNOSTIC IMAGING REPORT ---
ABDOMEN AND PELVIS CT WITH IV CONTRAST CT DOSE: 814.50 mGy.cm HISTORY: Trauma. Pain. trauma TECHNIQUE: Multiaxial CT images of the abdomen and pelvis were performed following the use of intravenous contrast. COMPARISON STUDY: 11/05/2016 FINDINGS: Lung bases demonstrate minimal interstitial change. Liver spleen and pancreas are unremarkable. Kidneys enhance uniformly. No evidence for hydronephrosis. Mild aneurysmal dilatation distal abdominal aorta with a maximum transaxial dimension of 3.2 cm. Proximal iliac vasculature is ectatic with maximum diameters of 2.2 cm. Bowel pattern is nonobstructive. There is no significant abdominal pelvic or inguinal adenopathy. Osseous structures show moderate degenerative change. IMPRESSION: 1. No acute process of the abdomen or pelvis. 2. Mild aneurysmal dilatation of the distal abdominal aorta as well as proximal iliac vasculature Electronically signed by: Suhail Jernigan M.D. 05/07/2017 6:40 PM Dictated Date/Time: 05/07/2017 6:36 PM
[2017-05-07] MEDS ORDERED: LIDODERM (LIDOCAINE) PATCH 5% TD STA (18:42)
[2017-05-07] MEDS ORDERED: KETOROLAC TROMETHAMINE 30 MG/ML VIAL IV STA (18:42)
[2017-05-07 19:12] VITALS: BP 116/64; PULSE 49; O2SAT 96
[2017-05-07] MEDS ORDERED: HYDROmorphone INJ 0.5 MG/0.5 ML SYR IV STA (19:22)
--- NOTE | 2017-05-07 19:25 | EMERGENCY ROOM VISIT NOTE ---
History Report prepared by Irina: Rafia Waterman Under the Supervision of: Dr. Belinda Colon D.O. First contact with patient: 16:27 Chief Complaint: FALL Stated Complaint: CHEST-CARDIAC- & RIB PAIN History of Present Illness The patient is a 66 year old male who presents to the Emergency Room with complaints of a fall [employer]. The patient was going to sit when he tripped. 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 He felt and heard a snapping sound under where his heart would be. He reports left rib pain which worsens with deep breaths. He is only able to take short breaths because of the pain. He reports nausea, lightheadedness, and left arm pain. He denies any other injury. He is on Plavix and aspirin. He has had a colectomy. No tx [employer]. NO head injury or LOC, denies any other pain or symptoms. 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 Pt denies any other injury. Review of Systems See HPI for pertinent positives & negatives. A total of 10 systems reviewed and were otherwise negative. Past Medical & Surgical Medical Problems: (1) Abdominal aneurysm (2) Abscess (3) Back pain (4) CAD (coronary artery disease) (5) Chest pain (6) Colostomy (7) Coronary artery disease (8) Diverticulitis of colon (9) GI bleed (10) Kidney stone (11) Myocardial infarction (12) Pneumonia (13) sigmoid resection (14) Unstable angina Surgical Problems: (1) History of appendectomy (2) History of colectomy Family History Hypertension Social History Smoking Status: Former Smoker Alcohol Use: none Drug Use: none Marital Status: Housing Status: lives with significant other Occupation Status: retired Current/Historical Medications Scheduled Aspirin (Aspirin Ec), 81 MG PO DAILY Clopidogrel Bisulfate (Clopidogrel), 75 MG PO QAM Fluoxetine (Prozac), 10 MG PO HS Lisinopril (Lisinopril), 2.5 MG PO QAM Multiple Vitamins W/ Minerals (Mens 50+ Advanced), 1 CAP PO DAILY Omeprazole (Prilosec), 40 MG PO QAM Prednisone (Prednisone), 1 TAB PO DAILY Rosuvastatin Calcium (Crestor), 1 TAB PO DAILY Scheduled PRN Clonazepam (Klonopin), 0.5 MG PO HS PRN for RESTLESS LEGS Gabapentin (Neurontin), 100 MG PO TID PRN for PRN Nitroglycerin (Nitrostat), 0.4 MG SL [id number] PRN for Chest Pain Oxycodone Ir (Roxicodone Ir), 1 TAB PO Q4H PRN for Pain Allergies Coded Allergies: Penicillins (Verified Allergy, Severe, SEVERE SWELLING, anaphylaxis, ) Metronidazole (Verified Allergy, Intermediate, swelling, 05/07/17) Physical Exam Vital Signs Date Time Temp Pulse Resp B/P (MAP) Pulse Ox O2 Delivery O2 Flow Rate FiO2 05/07/17 19:12 49 16 116/64 96 Room Air 05/07/17 16:48 65 19 126/63 93 Room Air 05/07/17 16:47 93 Room Air 05/07/17 16:34 62 Physical Exam GENERAL: alert, uncomfortable appearing, well nourished, no distress, non-toxic , no trauma EYE EXAM: normal conjunctiva, PERRL and EOM's grossly intact OROPHARYNX: no exudate, no erythema, lips, buccal mucosa, and tongue normal and mucous membranes are moist NECK: supple, no nuchal rigidity, no adenopathy, non-tender, no jvd or traceal deviation CHEST: no crepitus, no ecchymosis or step off to the ribs, tenderness to palpation on the left anterior chest wall down through the costal margin, equal chest rise/fall LUNGS: Clear to auscultation. Normal chest wall mechanics, no w/r/r HEART: no murmurs, S1 normal and S2 normal ABDOMEN: abdomen soft, non-tender, normo-active bowel sounds, no masses, no rebound or guarding, no ecchymosis BACK: Back is symmetrical on inspection and there is no deformity, no midline tenderness, no CVA tenderness. PELVIS: stable, nontender SKIN: no rashes and no bruising EXTREMITIES: extremities are grossly normal. No deformity, nontender to palpation, moving all extremities, no edema, no evidence of trauma. NEURO EXAM: Normal sensorium, cranial nerves II-XII grossly intact, normal speech, no gross weakness of arms, no gross weakness of legs. Medical Decision & Procedures ER Provider Diagnostic Interpretation: Xray results have been interpreted by the radiologist and me. Radiology results have been interpreted by the radiologist and reviewed by me. CHEST 2 VIEWS ROUTINE CLINICAL HISTORY: trauma, left rib pain pain COMPARISON STUDY: 05/03/2017 FINDINGS: Mild interval interstitial infiltrate left base and left lower lobe distribution. Mild stable cardiomegaly. Lungs otherwise appear clear. IMPRESSION: Interstitial infiltrate left lower lobe. Electronically signed by: Suhail Jernigan M.D. 05/07/2017 5:37 PM Dictated Date/Time: 05/07/2017 5:[address] WITH CONTRAST CT DOSE: HISTORY: Trauma chest trauma, infiltrate on cx TECHNIQUE: Multiaxial CT images of the chest were performed following the intravenous administration of contrast. COMPARISON: None. FINDINGS: Minimal interstitial changes in the lung bases. Lungs otherwise are clear. No evidence for pneumothorax. No significant hilar or mediastinal adenopathy. Thoracic aorta is negative for aneurysm or dissection. The osseous structures appear intact. IMPRESSION: Minimal bibasilar interstitial change. CT of the chest is otherwise negative. Electronically signed by: Suhail Jernigan M.D. 05/07/2017 6:33 PM Dictated Date/Time: 05/07/2017 6:32 PM A[address]OMEN AND PELVIS CT WITH IV CONTRAST CT DOSE: 814.50 mGy.cm HISTORY: Trauma. Pain. trauma TECHNIQUE: Multiaxial CT images of the abdomen and pelvis were performed following the use of intravenous contrast. COMPARISON STUDY: 11/05/2016 FINDINGS: Lung bases demonstrate minimal interstitial change. Liver spleen and pancreas are unremarkable. Kidneys enhance uniformly. No evidence for hydronephrosis. Mild aneurysmal dilatation distal abdominal aorta with a maximum transaxial dimension of 3.2 cm. Proximal iliac vasculature is ectatic with maximum diameters of 2.2 cm. Bowel pattern is nonobstructive. There is no significant abdominal pelvic or inguinal adenopathy. Osseous structures show moderate degenerative change. IMPRESSION: 1. No acute process of the abdomen or pelvis. 2. Mild aneurysmal dilatation of the distal abdominal aorta as well as proximal iliac vasculature Electronically signed by: Suhail Jernigan M.D. 05/07/2017 6:40 PM Dictated Date/Time: 05/07/2017 6:36 PM Laboratory Results 05/07/17 17:15 Red Blood Count 5.12, Mean Corpuscular Volume 90.4, Mean Corpuscular Hemoglobin 30.3, Mean Corpuscular Hemoglobin Concent 33.5, Mean Platelet Volume 9.9, Neutrophils (%) (Auto) 63.8, Lymphocytes (%) (Auto) 26.8, Monocytes (%) (Auto) 7.3, Eosinophils (%) (Auto) 1.4, Basophils (%) (Auto) 0.4, Neutrophils # (Auto) 5.84, Lymphocytes # (Auto) 2.46, Monocytes # (Auto) 0.67, Eosinophils # (Auto) 0.13, Basophils # (Auto) 0.04 05/07/17 17:15 Test 05/07/17 17:15 White Blood Count 9.17 K/uL (4.8-10.8) Red Blood Count 5.12 M/uL (4.7-6.1) Hemoglobin 15.5 g/dL (14.0-18.0) Hematocrit 46.3 % (42-52) Mean Corpuscular Volume 90.4 fL (80-100) Mean Corpuscular Hemoglobin 30.3 pg (25-34) Mean Corpuscular Hemoglobin Concent 33.5 g/dl (32-36) Platelet Count 157 K/uL (130-400) Mean Platelet Volume 9.9 fL (7.4-10.4) Neutrophils (%) (Auto) 63.8 % Lymphocytes (%) (Auto) 26.8 % Monocytes (%) (Auto) 7.3 % Eosinophils (%) (Auto) 1.4 % Basophils (%) (Auto) 0.4 % Neutrophils # (Auto) 5.84 K/uL (1.4-6.5) Lymphocytes # (Auto) 2.46 K/uL (1.2-3.4) Monocytes # (Auto) 0.67 K/uL (0.11-0.59) Eosinophils # (Auto) 0.13 K/uL (0-0.5) Basophils # (Auto) 0.04 K/uL (0-0.2) RDW Standard Deviation 44.1 fL (36.4-46.3) RDW Coefficient of Variation 13.4 % (11.5-14.5) Immature Granulocyte % (Auto) 0.3 % Immature Granulocyte # (Auto) 0.03 K/uL (0.00-0.02) Prothrombin Time 10.7 SECONDS (9.0-12.0) Prothromb Time International Ratio 1.0 (0.9-1.1) Anion Gap 8.0 mmol/L (3-11) Est Creatinine Clear Calc Drug Dose 79.8 ml/min Estimated GFR () 90.5 Estimated GFR (Non- 78.1 BUN/Creatinine Ratio 18.8 (10-20) Calcium Level 8.7 mg/dl (8.5-10.1) Total Bilirubin 0.2 mg/dl (0.2-1) Aspartate Amino Transf (AST/SGOT) 10 U/L (15-37) Alanine Aminotransferase (ALT/SGPT) 20 U/L (12-78) Alkaline Phosphatase 75 U/L (45-117) Troponin I < 0.015 ng/ml (0-0.045) Total Protein 6.6 gm/dl (6.4-8.2) Albumin 3.3 gm/dl (3.4-5.0) Globulin 3.3 gm/dl (2.5-4.0) Albumin/Globulin Ratio 1.0 (0.9-2) Laboratory results per my review. Medications Administered Medications (Trade) Dose Ordered Sig/Alan Route Start Time Stop Time Status Last Admin Dose Admin Acetaminophen 100 ml @ 400 mls/hr NOW STAT IV 05/07/17 17:05 05/07/17 17:19 DC 05/07/17 17:23 400 MLS/HR Sodium Chloride 1,000 ml @ 250 mls/hr Q4H STAT IV 05/07/17 17:46 05/07/17 19:58 DC 05/07/17 17:46 250 MLS/HR Morphine Sulfate (MoRPHine SULFATE INJ) 4 mg NOW STAT IV 05/07/17 18:06 05/07/17 18:07 DC 05/07/17 18:06 4 MG Ketorolac Tromethamine (Toradol Inj) 30 mg NOW STAT IV 05/07/17 18:42 05/07/17 18:44 DC 05/07/17 19:11 30 MG Lidocaine (Lidoderm Patch 5%) 1 patch NOW STAT TD 05/07/17 18:42 05/07/17 18:44 DC 05/07/17 19:12 1 PATCH Hydromorphone HCl (Dilaudid Inj) 0.5 mg NOW STAT IV 05/07/17 19:22 05/07/17 19:23 DC 05/07/17 19:36 0.5 MG ECG Indication: chest pain Rate (beats per minute): 65 Rhythm: sinus rhythm Findings: T-wave inversion (aVL), left axis deviation, other (no other acute ischemic changes) Comparison ECG Date: 03-May-2017 Change: no significant change ED Course 1635: The patient was evaluated in room C2B. A complete history and physical exam was performed. 1705: Acetaminophen 100 ml @ 400 mls/hr IV. 174: NSS 1000 ml @ 250 mls/hr IV. 1804: I reevaluated the patient. I update him on the results. 1805: Morphine Sulfate 4 mg IV. 1841: Lidocaine 1 patch TD, Toradol Inj 30 mg IV. 1912: I reevaluated the patient. He is feeling better. I discussed the results and treatment plan with him. He verbalized understanding and agreement. He was discharged home. 1921: Dilaudid Inj 0.5 mg IV. Medical Decision Differential diagnosis: Etiologies such as fracture, dislocation, intra-abdominal, pneumothorax, intrathoracic , intracranial, neurologic, as well as other traumatic pathologies were entertained. Medication Reconciliation: I attest that I have personally reviewed the patient' s current medication list. Blood pressure screening: Patient was found to have normal blood pressure on screening and does not require follow-up. CXR with questionable infiltrate, given no recent URI/pulmonary sx, concern for possible pulmonary contusion given antiplatelet therapy and trauma. No other chest/abdominal trauma found. Labs and VS reassuring. Pt with tolerance to pain medications, recently written for prescription for narcotics that he states he has at home. No additional narcotics advised. Discussed with him close f/u with PCP for a recheck, continued use of regular medications, sx to watch/return for, he verbalized understanding and was agreeable with plan. Pt monitored several hours as a precaution without any change or deterioration in his clinical condition. Doubt cardiac contusion, pulmonary contusion, no evidence of occult bleeding, fx, pneumothorax, vascular injury. No other hx or sx to suggest spine or neuro injury, no indication for neuroimaging at this time. No preceding sx to suggest other etiology leading to fall. Pt describes event as mechanical. Impression Primary Impression: Fall Additional Impression: Chest pain Scribe Attestation The scribe's documentation has been prepared under my direction and personally reviewed by me in its entirety. I confirm that the note above accurately reflects all work, treatment, procedures, and medical decision making performed by me. Departure Information Dispostion Home / Self-Care Referrals Mariah Lewis C.R.N.P (PCP) Patient Instructions My [facility] Additional Instructions You may use the pain medication that you have at home as previously prescribed. Please do not take it and drive, please monitor for constipation. Please make sure you're drinking plenty of water. If you develop any worsening pain, develop trouble breathing, vomiting, fevers, dizziness, or you have any other new concerns, please return the emergency room. Please: Follow up with her family doctor to recheck your condition and make sure you are improving. Problem Qualifiers Primary Impression: Fall Encounter type: initial encounter Qualified Codes: W19.XXXA - Unspecified fall, initial encounter Additional Impression: Chest pain Chest pain type: unspecified Qualified Codes: R07.9 - Chest pain, unspecified
[2017-05-26] MEDS ORDERED: RXC5 PO (11:37)
== END 2017-05-07 19:35 | disposition home or self-care (01) ==
LOC: EDBD 16:25 → C.EDC 16:26
DX: R07.9 Chest pain, unspecified (principal); W01.198A Fall on same level from slipping, tripping and stumbling with subsequent striking against other object, initial encounter; I25.10 Atherosclerotic heart disease of native coronary artery without angina pectoris; Z87.442 Personal history of urinary calculi; Z87.01 Personal history of pneumonia (recurrent); Z87.891 Personal history of nicotine dependence; Z93.3 Colostomy status; Z90.49 Acquired absence of other specified parts of digestive tract; Z90.89 Acquired absence of other organs; Z79.02 Long term (current) use of antithrombotics/antiplatelets; Z79.82 Long term (current) use of aspirin

== ENCOUNTER → 2017-05-15 | Outpatient (CLI) | payer OTHER ==
[~2017-05-15] MED LIST changes: +CLOP1TAB15 PO; +LISI-789 PO; +NAPR-1169 PO; +NTRGSL/4 SL; -PRED20TA PO; +RXC5 PO
--- NOTE | 2017-05-18 13:02 | EEG Procedure Note ---
EEG Procedure Note Date of Service May 15, 2017. Start / End Times Start Time: 10:44am End Time: 11:06am Referring Physician Ling Mcleod History This is a 66-year-old male with new onset headaches and TIA like symptoms. EEG for further evaluation of possible seizure etiology. Home Medication List Scheduled Aspirin (Aspirin Ec), 81 MG PO DAILY Clopidogrel Bisulfate (Clopidogrel), 75 MG PO QAM Fluoxetine (Prozac), 10 MG PO HS Lisinopril (Lisinopril), 2.5 MG PO QAM Multiple Vitamins W/ Minerals (Mens 50+ Advanced), 1 CAP PO DAILY Omeprazole (Prilosec), 40 MG PO QAM Rosuvastatin Calcium (Crestor), 1 TAB PO DAILY Scheduled PRN Clonazepam (Klonopin), 0.5 MG PO HS PRN for RESTLESS LEGS Gabapentin (Neurontin), 100 MG PO TID PRN for PRN Nitroglycerin (Nitrostat), 0.4 MG SL [id number] PRN for Chest Pain Oxycodone Ir (Roxicodone Ir), 1 TAB PO Q4H PRN for Pain Description This is a 21 electrode EEG with a single channel dedicated to limited EKG. The electrodes were placed in accordance with the International 10-20 system. During this recording there was technical problems with the EEG machine causing it to shut down in the middle of the study. There was a total of 20 minutes of recorded EEG. At the start of the recording the patient was in an awake state. Background was well organized and composed of symmetric mixed alpha and beta frequencies. There was a symmetric well-formed moderate amplitude 9-10 Hz posterior dominant rhythm that was reactive to eye opening and closure. Hyperventilation was not done. Intermittent photic stimulation at various frequencies produced no abnormalities. Sleep was indicated by symmetric sleep spindles. Interpretation This is a normal awake and asleep routine EEG. There was no electrographic seizures or epileptiform discharges. Clinical Correlation A normal EEG does not rule out epilepsy if there is a strong clinical suspicion.
== END | disposition home or self-care (01) ==
LOC: C.NEUR 13:20
PROVIDERS: ATTEND Psychiatry & Neurology Neurology
DX: R51 Headache (principal); Z79.899 Other long term (current) drug therapy

== ENCOUNTER 2017-05-24 17:41 | Observation (INO) | payer OTHER ==
[~2017-05-24] VITALS: Ht 182.9 cm; Wt 88.3 kg
[~2017-05-24 17:41] MED LIST changes: -CLOP1TAB15 PO; -LISI-789 PO; -NAPR-1169 PO; -NTRGSL/4 SL; -RXC5 PO
[2017-05-24] MEDS ORDERED: NITROGLYCERIN OINT 2% 1GM PACKET EXT ONE (18:00)
[2017-05-24] MEDS ORDERED: ASPIRIN 81 MG CHEW PO ONE (18:00)
[2017-05-24] MEDS ORDERED: ROSU40TA PO (18:15)
[2017-05-24 18:20] LABS: BASO % 0.4 %; BASO ABS # 0.03 K/uL (0-0.2); COMPLETE YES; EOS % 1.8 %; HEMATOCRIT 47.7 % (42-52); IG% 0.1 %; LYMPH ABS # 1.57 K/uL (1.2-3.4); MEAN CELL VOLUME 88.2 fL (80-100); MEAN CORPUSCULAR HEMOGLOBIN 30.5 pg (25-34); MEAN CORPUSCULAR HGB CONC 34.6 g/dl (32-36); MEAN PLATELET VOLUME 9.2 fL (7.4-10.4); MONO % 5.6 %; NEUT % 70.1 %; PLATELET COUNT 186 K/uL (130-400); RED BLOOD COUNT 5.41 M/uL (4.7-6.1); WHITE BLOOD COUNT 7.13 K/uL (4.8-10.8)
[2017-05-24] MEDS ORDERED: MoRPHine SULFATE 4 MG/ML 1 ML CARP IV ONE (18:30)
--- NOTE | 2017-05-24 18:37 | DIAGNOSTIC IMAGING REPORT ---
CHEST 2 VIEWS ROUTINE CLINICAL HISTORY: Chest pain. COMPARISON STUDY: Chest radiograph and chest CT May 07, 2017. FINDINGS: Lung volumes are normal. There is no pneumothorax or pleural effusion. Interstitial prominence remains unchanged. Cardiomediastinal silhouette is stable. There is no evidence of pulmonary edema. There is no consolidation to suggest pneumonia. IMPRESSION: No acute cardiopulmonary findings. Electronically signed by: Charlie Obrien M.D. 05/24/2017 6:36 PM Dictated Date/Time: 05/24/2017 6:35 PM
[2017-05-24 18:38] LABS: BUN/CREATININE RATIO 18.7 (10-20); CALCIUM 9.2 mg/dl (8.5-10.1); CREATININE 0.96 mg/dl (0.60-1.40); MAGNESIUM 2.2 mg/dl (1.8-2.4); POTASSIUM 4.2 mmol/L (3.5-5.1)
[2017-05-24 18:49] LABS: ALB/GLOB RATIO 0.9 (0.9-2); THYROID STIMULATING HORMONE 1.04 uIu/ml (0.300-4.500)
[2017-05-24 19:01] LABS: PARTIAL THROMBOPLASTIN RATIO 1.1; PROTHROMBIN TIME (PATIENT) 10.5 SECONDS (9.0-12.0)
--- NOTE | 2017-05-24 20:35 | EMERGENCY ROOM VISIT NOTE ---
History First contact with patient: 17:51 Chief Complaint: CHEST PAIN Stated Complaint: HEART PAIN, CHEST PAIN Nursing Triage Summary: pt reports pain in L chest became worse 1 day ago , took nitro X 3 at home with some relief pt reports fall onto chest 4 weeks ago hx 5 cardiac stents History of Present Illness The patient is a 66 year old male who presents to the Emergency Room with complaints of worsening left-sided chest pain over the past one day. The patient has extensive history of cardiac disease with 5 stents. He does follow with Dr. Gallardo of cardiology and contacted that office today. They referred him to the emergency department for management of his symptoms. The patient took 3 nitroglycerin at home, and this significantly improved his left-sided pain. He states that he has had some progressive dyspnea on exertion for the past few weeks but today and yesterday of the first days with pain. The patient states the discomfort is just underneath his left side rib cage and into his left sided back. He has not had lightheadedness or dizziness. The patient takes 81 mg aspirin daily as well as Plavix. He has not had fever or chills. No cough. He rates his discomfort an 8/10 and nonradiating. Review of Systems More than 10 systems were reviewed and otherwise negative with the exception of history of present illness. Past Medical/Surgical History Medical Problems: (1) Abdominal aneurysm (2) Abscess (3) Back pain (4) CAD (coronary artery disease) (5) Chest pain (6) Colostomy (7) Coronary artery disease (8) Diverticulitis of colon (9) GI bleed (10) Kidney stone (11) Myocardial infarction (12) Pneumonia (13) sigmoid resection (14) Unstable angina Surgical Problems: (1) History of appendectomy (2) History of colectomy Family History Hypertension Social History Smoking Status: Current Every Day Smoker Alcohol Use: none Drug Use: none Marital Status: Housing Status: lives with significant other Occupation Status: retired Current/Historical Medications Scheduled Aspirin (Aspirin Ec), 81 MG PO DAILY Clopidogrel Bisulfate (Clopidogrel), 75 MG PO QAM Fluoxetine (Prozac), 10 MG PO HS Lisinopril (Lisinopril), 2.5 MG PO QAM Multiple Vitamins W/ Minerals (Mens 50+ Advanced), 1 CAP PO DAILY Omeprazole (Prilosec), 40 MG PO QAM Rosuvastatin Calcium (Crestor), 40 MG PO DAILY Scheduled PRN Clonazepam (Klonopin), 0.5 MG PO HS PRN for RESTLESS LEGS Gabapentin (Neurontin), 100 MG PO TID PRN for PRN Nitroglycerin (Nitrostat), 0.4 MG SL [id number] PRN for Chest Pain Allergies Coded Allergies: Penicillins (Verified Allergy, Severe, SEVERE SWELLING, anaphylaxis, ) Metronidazole (Verified Allergy, Intermediate, swelling, 05/24/17) Physical Exam Vital Signs Date Time Temp Pulse Resp B/P (MAP) Pulse Ox O2 Delivery O2 Flow Rate FiO2 05/24/17 22:36 51 95 05/24/17 22:31 50 111/64 95 05/24/17 22:26 54 95 05/24/17 22:21 48 96 05/24/17 22:16 50 96 05/24/17 22:11 50 96 05/24/17 22:06 58 95 05/24/17 22:01 58 103/64 96 05/24/17 21:56 51 96 05/24/17 21:51 54 95 05/24/17 21:46 50 97 05/24/17 21:41 54 95 05/24/17 21:36 55 110/66 96 05/24/17 21:31 62 95 05/24/17 21:26 62 93 05/24/17 21:21 61 95 05/24/17 21:16 58 94 05/24/17 21:11 62 05/24/17 21:06 54 95 05/24/17 21:01 58 96 05/24/17 20:56 55 95 05/24/17 20:51 65 26 92 05/24/17 20:46 58 15 94 05/24/17 20:41 56 16 94 05/24/17 20:36 55 17 95 05/24/17 20:31 55 19 94 05/24/17 20:26 56 17 95 05/24/17 20:21 56 18 95 05/24/17 20:16 55 18 94 05/24/17 20:11 56 21 94 05/24/17 20:06 67 18 94 05/24/17 20:01 55 18 93 05/24/17 19:56 59 17 94 05/24/17 19:51 59 23 94 05/24/17 19:46 63 9 92 05/24/17 19:41 59 17 93 05/24/17 19:36 61 23 94 05/24/17 19:31 61 18 93 05/24/17 19:26 59 24 94 05/24/17 19:21 60 15 93 05/24/17 19:16 62 22 93 05/24/17 19:11 61 21 93 05/24/17 19:06 63 20 92 05/24/17 19:01 62 20 93 05/24/17 18:56 60 14 94 05/24/17 18:51 62 23 93 05/24/17 18:46 65 12 96 05/24/17 18:41 62 18 95 05/24/17 18:36 61 19 94 05/24/17 18:31 60 17 96 05/24/17 18:16 59 24 97 05/24/17 18:11 62 11 128/82 97 05/24/17 18:07 58 05/24/17 18:06 59 20 96 05/24/17 18:03 97 Room Air 05/24/17 18:03 151/76 05/24/17 17:45 36.7 62 18 137/77 98 Room Air Physical Exam VITALS: Vitals are noted on the nurse's note and reviewed by myself. Vital signs stable. GENERAL: Well-developed, well-nourished, white male, who is in no acute distress and resting comfortably. Patient is cooperative with the examination. HEART: Regular rate and rhythm without murmurs gallops or rubs. LUNGS: Clear to auscultation bilaterally without wheezes, rales or rhonchi. No retractions or accessory muscle use. ABDOMEN: Positive normal bowel sounds x 4. Soft, nontender, without masses or organomegaly. No guarding or rebound tenderness. MUSCULOSKELETAL: No muscle atrophy, erythema, or edema noted. Full range of motion without joint tenderness in all extremities. NEURO: Patient was alert and oriented to person place and time. CN II through XII grossly intact. Medical Decision & Procedures ER Provider Diagnostic Interpretation: CHEST 2 VIEWS ROUTINE CLINICAL HISTORY: Chest pain. COMPARISON STUDY: Chest radiograph and chest CT May 07, 2017. FINDINGS: Lung volumes are normal. There is no pneumothorax or pleural effusion. Interstitial prominence remains unchanged. Cardiomediastinal silhouette is stable. There is no evidence of pulmonary edema. There is no consolidation to suggest pneumonia. IMPRESSION: No acute cardiopulmonary findings. Laboratory Results 05/24/17 18:00 Red Blood Count 5.41, Mean Corpuscular Volume 88.2, Mean Corpuscular Hemoglobin 30.5, Mean Corpuscular Hemoglobin Concent 34.6, Mean Platelet Volume 9.2, Neutrophils (%) (Auto) 70.1, Lymphocytes (%) (Auto) 22.0, Monocytes (%) (Auto) 5.6, Eosinophils (%) (Auto) 1.8, Basophils (%) (Auto) 0.4, Neutrophils # (Auto) 4.99, Lymphocytes # (Auto) 1.57, Monocytes # (Auto) 0.40, Eosinophils # (Auto) 0.13, Basophils # (Auto) 0.03 05/24/17 18:00 Test 05/24/17 18:00 05/24/17 18:08 05/24/17 18:40 White Blood Count 7.13 K/uL (4.8-10.8) Red Blood Count 5.41 M/uL (4.7-6.1) Hemoglobin 16.5 g/dL (14.0-18.0) Hematocrit 47.7 % (42-52) Mean Corpuscular Volume 88.2 fL (80-100) Mean Corpuscular Hemoglobin 30.5 pg (25-34) Mean Corpuscular Hemoglobin Concent 34.6 g/dl (32-36) Platelet Count 186 K/uL (130-400) Mean Platelet Volume 9.2 fL (7.4-10.4) Neutrophils (%) (Auto) 70.1 % Lymphocytes (%) (Auto) 22.0 % Monocytes (%) (Auto) 5.6 % Eosinophils (%) (Auto) 1.8 % Basophils (%) (Auto) 0.4 % Neutrophils # (Auto) 4.99 K/uL (1.4-6.5) Lymphocytes # (Auto) 1.57 K/uL (1.2-3.4) Monocytes # (Auto) 0.40 K/uL (0.11-0.59) Eosinophils # (Auto) 0.13 K/uL (0-0.5) Basophils # (Auto) 0.03 K/uL (0-0.2) RDW Standard Deviation 42.0 fL (36.4-46.3) RDW Coefficient of Variation 13.0 % (11.5-14.5) Immature Granulocyte % (Auto) 0.1 % Immature Granulocyte # (Auto) 0.01 K/uL (0.00-0.02) Anion Gap 8.0 mmol/L (3-11) Est Creatinine Clear Calc Drug Dose 83.1 ml/min Estimated GFR () 95.1 Estimated GFR (Non- 82.0 BUN/Creatinine Ratio 18.7 (10-20) Calcium Level 9.2 mg/dl (8.5-10.1) Magnesium Level 2.2 mg/dl (1.8-2.4) Total Bilirubin 0.4 mg/dl (0.2-1) Aspartate Amino Transf (AST/SGOT) 13 U/L (15-37) Alanine Aminotransferase (ALT/SGPT) 22 U/L (12-78) Alkaline Phosphatase 106 U/L (45-117) Total Protein 8.0 gm/dl (6.4-8.2) Albumin 3.7 gm/dl (3.4-5.0) Globulin 4.3 gm/dl (2.5-4.0) Albumin/Globulin Ratio 0.9 (0.9-2) Thyroid Stimulating Hormone (TSH) 1.040 uIu/ml (0.300-4.500) Bedside Troponin I < 0.030 ng/ml (0-0.045) Prothrombin Time 10.5 SECONDS (9.0-12.0) Prothromb Time International Ratio 1.0 (0.9-1.1) Activated Partial Thromboplast Time 29.7 SECONDS (21.0-31.0) Partial Thromboplastin Ratio 1.1 Medications Administered Medications (Trade) Dose Ordered Sig/Alan Route Start Time Stop Time Status Last Admin Dose Admin Aspirin (Aspirin Chew) 243 mg NOW ONCE PO 05/24/17 18:00 05/24/17 18:01 DC 05/24/17 18:09 243 MG Nitroglycerin (Nitroglycerin 2% Oint) 1 inch NOW ONCE EXT 05/24/17 18:00 05/24/17 18:01 DC 05/24/17 18:08 1 INCH Morphine Sulfate (MoRPHine SULFATE INJ) 4 mg NOW ONCE IV 05/24/17 18:30 7/12/17 18:31 DC 05/24/17 18:46 4 MG Morphine Sulfate (MoRPHine SULFATE INJ) 2 mg NOW STAT IV 05/24/17 21:00 05/24/17 21:01 DC 05/24/17 21:13 2 MG Acetaminophen 100 ml @ 400 mls/hr NOW ONCE IV 05/24/17 21:00 05/24/17 21:14 DC 05/24/17 21:00 400 MLS/HR ECG Change: Normal sinus rhythm @62 bpm Septal infarct (cited on or before 07-MAY-2017) Abnormal ECG When compared with ECG of 07-MAY-2017 16:34, No significant change was found ED Course Physical exam and history were performed. Nursing notes and EMR were reviewed. Medication list was reviewed by myself. Patient appears to have left-sided chest pain that has improved with nitroglycerin. IV access was established and labs were obtained. The patient' s EKG is as above and was normal sinus rhythm at 62 bpm without ischemia or ectopy. The patient was placed on the diagnostic cardiac sonographer. He was hydrated with normal saline and given aspirin and Nitropaste. The patient was also given formula grams IV morphine. Chest x-ray was performed. The patient's blood work is as above and was reviewed. He does not have a significantly elevated white blood cell count, gross anemia, bandemia, or significant electrolyte imbalance. Lipase and transaminases are nondiagnostic. Troponin 1 is negative. Chest x-ray does not show acute findings. The patient remained in normal sinus rhythm on the diagnostic cardiac sonographer. He had significant improvement of his symptoms after medications here in the department. I discussed the case my attending physician, Dr. Silvestre, who also independently evaluated the patient. We feel that he is not stable for discharge home concerning that he has an extensive cardiac history and was referred to the department after speaking with his actuarial analyst office. The patient's symptoms have improved with nitroglycerin and he certainly could have an unstable angina picture. The case was discussed with the [facility] hospitalist who agreed to evaluate the patient here in the emergency department. Please see their dictation for further patient course, plan, and disposition. The chart was completed utilizing [employer] Voice Recognition Software. Grammatical errors, random word insertions, pronoun errors, and incomplete sentences are an occasional consequence of this system due to software limitations, ambient noise, and hardware issues. Any formal questions or concerns about the content, text, or information contained within the body of this dictation should be directly addressed to the provider for clarification. . Medical Decision Differential diagnosis includes, but is not limited to: Myocardial infarction, dysrhythmia, pericarditis, pneumothorax, aortic aneurysm/dissection, DVT/PE, anxiety, GERD, PUD, electrolyte imbalance, thyroid disorder, pneumonia, bronchitis, pancreatitis, and others Impression Primary Impression: Left sided chest pain Departure Information Referrals Mariah Lewsi C.R.NMarco AP (PCP) Patient Instructions [facility]
[2017-05-24] MEDS ORDERED: MoRPHine SULFATE 2 MG/ML CARP IV STA (21:00)
[2017-05-24] MEDS ORDERED: ACETAMINOPHEN IV 100 ML IV ONE (21:00)
--- NOTE | 2017-05-24 23:24 | History and Physical ---
History & Physical Date & Time of Service: May 24, 2017 at 23:24 Chief Complaint: Heart Pain, Chest Pain Primary Care Physician: Mariah Lewis C.R.N.P History of Present Illness Source: patient 66-year-old male with past medical history of coronary artery disease status post stents placed in November 2016, abdominal aortic aneurysm, back pain presented to the ER with complaints of left-sided chest pain which started about a day ago. He also complains of pain in his upper back between his shoulder blades. He stated that he fell over his lawnmower about a month ago and had developed back pain. Complains of chest pain which is worse today, 5/10 in severity, squeezing in nature. He states that he has shortness of breath on and off which is especially worse on exertion. Denies any vomiting, diaphoresis but has some nausea. He had consulted with his technical systems architect about his chest pain went recommended that he go to the ER. He also complains of right-sided upper arm and leg numbness. He had an MRI done about 2 weeks ago ordered by his neurologist which was normal Past Medical/Surgical History Medical Problems: (1) Abdominal aneurysm Status: Chronic (2) Abscess Status: Chronic (3) Colostomy Status: Resolved (4) Coronary artery disease Status: Chronic (5) Diverticulitis of colon Status: Resolved (6) GI bleed Status: Resolved (7) Kidney stone Status: Resolved (8) Myocardial infarction Status: Chronic (9) Pneumonia Status: Chronic Surgical Problems: (1) History of appendectomy Status: Resolved (2) History of colectomy Status: Resolved Family History Hypertension Social History Smoking Status: Current Every Day Smoker Drug Use: none Marital Status: Housing status: lives with family Occupational Status: retired Immunizations History of Influenza Vaccine: Yes Influenza Vaccine Date: Sep 01, 2013 History of Tetanus Vaccine?: Yes Tetanus Immunization Date: Jul 23, 2004 History of Pneumococcal: Yes Pneumococcal Date: Dec 02, 2012 History of Hepatitis B Vaccine: Yes Hepatitis Immunization Date: Jul 23, 2005 Allergies Coded Allergies: Penicillins (Verified Allergy, Severe, SEVERE SWELLING, anaphylaxis, ) Metronidazole (Verified Allergy, Intermediate, swelling, 05/24/17) Home Medications Scheduled Aspirin (Aspirin Ec), 81 MG PO DAILY Clopidogrel Bisulfate (Clopidogrel), 75 MG PO QAM Fluoxetine (Prozac), 10 MG PO HS Lisinopril (Lisinopril), 2.5 MG PO QAM Multiple Vitamins W/ Minerals (Mens 50+ Advanced), 1 CAP PO DAILY Omeprazole (Prilosec), 40 MG PO QAM Oxycodone HCl (Oxycodone HCl), 10 MG PO Q6 Rosuvastatin Calcium (Crestor), 40 MG PO DAILY Scheduled PRN Clonazepam (Klonopin), 0.5 MG PO HS PRN for RESTLESS LEGS Gabapentin (Neurontin), 100 MG PO TID PRN for PRN Nitroglycerin (Nitrostat), 0.4 MG SL [id number] PRN for Chest Pain Review of Systems Constitutional: No fever, No chills, No sweats Eyes: No worsening of vision ENT: No hearing loss Respiratory: + shortness of breath, + dyspnea on exertion, No cough, No sputum Cardiovascular: + chest pain, No orthopnea, No edema Abdomen: + nausea, No pain, No vomiting, No diarrhea Musculoskeletal: + joint pain (back pain especially upper back) Genitourinary - Male: No hematuria, No dysuria Neurologic: + numbness/tingling (of both upper extremity and lower extremity), No memory loss, No paralysis Psychiatric: No depression symptoms Endocrine: No fatigue Hematologic / Lymphatic: No abnormal bleeding/bruising Integumentary: No rash Physical Exam Vital Signs Date Time Temp Pulse Resp B/P (MAP) Pulse Ox O2 Delivery O2 Flow Rate FiO2 05/24/17 22:36 51 95 05/24/17 22:31 50 111/64 95 05/24/17 22:26 54 95 05/24/17 22:21 48 96 05/24/17 22:16 50 96 05/24/17 22:11 50 96 05/24/17 22:06 58 95 05/24/17 22:01 58 103/64 96 05/24/17 21:56 51 96 05/24/17 21:51 54 95 05/24/17 21:46 50 97 05/24/17 21:41 54 95 05/24/17 21:36 55 110/66 96 05/24/17 21:31 62 95 05/24/17 21:26 62 93 05/24/17 21:21 61 95 05/24/17 21:16 58 94 05/24/17 21:11 62 7/12/17 21:06 54 95 05/24/17 21:01 58 96 05/24/17 20:56 55 95 05/24/17 20:51 65 26 92 05/24/17 20:46 58 15 94 05/24/17 20:41 56 16 94 05/24/17 20:36 55 17 95 05/24/17 20:31 55 19 94 05/24/17 20:26 56 17 95 05/24/17 20:21 56 18 95 05/24/17 20:16 55 18 94 05/24/17 20:11 56 21 94 05/24/17 20:06 67 18 94 05/24/17 20:01 55 18 93 05/24/17 19:56 59 17 94 05/24/17 19:51 59 23 94 05/24/17 19:46 63 9 92 05/24/17 19:41 59 17 93 05/24/17 19:36 61 23 94 05/24/17 19:31 61 18 93 05/24/17 19:26 59 24 94 05/24/17 19:21 60 15 93 05/24/17 19:16 62 22 93 05/24/17 19:11 61 21 93 05/24/17 19:06 63 20 92 05/24/17 19:01 62 20 93 05/24/17 18:56 60 14 94 05/24/17 18:51 62 23 93 05/24/17 18:46 65 12 96 05/24/17 18:41 62 18 95 05/24/17 18:36 61 19 94 05/24/17 18:31 60 17 96 05/24/17 18:16 59 24 97 05/24/17 18:11 62 11 128/82 97 05/24/17 18:07 58 05/24/17 18:06 59 20 96 05/24/17 18:03 97 Room Air 05/24/17 18:03 151/76 05/24/17 17:45 36.7 62 18 137/77 98 Room Air General Appearance: WD/WN, no apparent distress Head: normocephalic Eyes: normal inspection ENT: normal ENT inspection, hearing grossly normal Neck: supple Respiratory/Chest: chest non-tender, lungs clear, normal breath sounds, no respiratory distress, no accessory muscle use Cardiovascular: regular rate, rhythm Abdomen/GI: normal bowel sounds, non tender, soft Back: normal inspection Extremities/Musculoskelatal: normal inspection, no calf tenderness, no pedal edema Neurologic/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: 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 as tested, no motor/sensory deficits, alert, normal mood/affect, oriented x 3 Skin: normal color Diagnostics Laboratory Results Results Past 24 Hours Test 05/24/17 18:00 05/24/17 18:08 05/24/17 18:40 Range/Units White Blood Count 7.13 4.8-10.8 K/uL Red Blood Count 5.41 4.7-6.1 M/uL Hemoglobin 16.5 14.0-18.0 g/dL Hematocrit 47.7 42-52 % Mean Corpuscular Volume 88.2 80-100 fL Mean Corpuscular Hemoglobin 30.5 25-34 pg Mean Corpuscular Hemoglobin Concent 34.6 32-36 g/dl Platelet Count 186 130-400 K/uL Mean Platelet Volume 9.2 7.4-10.4 fL Neutrophils (%) (Auto) 70.1 % Lymphocytes (%) (Auto) 22.0 % Monocytes (%) (Auto) 5.6 % Eosinophils (%) (Auto) 1.8 % Basophils (%) (Auto) 0.4 % Neutrophils # (Auto) 4.99 1.4-6.5 K/uL Lymphocytes # (Auto) 1.57 1.2-3.4 K/uL Monocytes # (Auto) 0.40 0.11-0.59 K/uL Eosinophils # (Auto) 0.13 0-0.5 K/uL Basophils # (Auto) 0.03 0-0.2 K/uL RDW Standard Deviation 42.0 36.4-46.3 fL RDW Coefficient of Variation 13.0 11.5-14.5 % Immature Granulocyte % (Auto) 0.1 % Immature Granulocyte # (Auto) 0.01 0.00-0.02 K/uL Sodium Level 140 136-145 mmol/L Potassium Level 4.2 3.5-5.1 mmol/L Chloride Level 105 98-107 mmol/L Carbon Dioxide Level 27 21-32 mmol/L Anion Gap 8.0 3-11 mmol/L Blood Urea Nitrogen 18 7-18 mg/dl Creatinine 0.96 0.60-1.40 mg/dl Est Creatinine Clear Calc Drug Dose 83.1 ml/min Estimated GFR () 95.1 Estimated GFR (Non- 82.0 BUN/Creatinine Ratio 18.7 10-20 Random Glucose 77 70-99 mg/dl Calcium Level 9.2 8.5-10.1 mg/dl Magnesium Level 2.2 1.8-2.4 mg/dl Total Bilirubin 0.4 0.2-1 mg/dl Aspartate Amino Transf (AST/SGOT) 13 15-37 U/L Alanine Aminotransferase (ALT/SGPT) 22 12-78 U/L Alkaline Phosphatase 106 45-117 U/L Total Protein 8.0 6.4-8.2 gm/dl Albumin 3.7 3.4-5.0 gm/dl Globulin 4.3 2.5-4.0 gm/dl Albumin/Globulin Ratio 0.9 0.9-2 Thyroid Stimulating Hormone (TSH) 1.040 0.300-4.500 uIu/ml Bedside Troponin I < 0.030 0-0.045 ng/ml Prothrombin Time 10.5 9.0-12.0 SECONDS Prothromb Time International Ratio 1.0 0.9-1.1 Activated Partial Thromboplast Time 29.7 21.0-31.0 SECONDS Partial Thromboplastin Ratio 1.1 Diagnostic Radiology CHEST 2 VIEWS ROUTINE CLINICAL HISTORY: Chest pain. COMPARISON STUDY: Chest radiograph and chest CT May 07, 2017. FINDINGS: Lung volumes are normal. There is no pneumothorax or pleural effusion. Interstitial prominence remains unchanged. Cardiomediastinal silhouette is stable. There is no evidence of pulmonary edema. There is no consolidation to suggest pneumonia. IMPRESSION: No acute cardiopulmonary findings. Electronically signed by: Charlie Obrien M.D. 05/24/2017 6:36 PM Dictated Date/Time: 05/24/2017 6:35 PM EKG Normal sinus rhythm Septal infarct (cited on or before 07-MAY-2017) Abnormal ECG When compared with ECG of 07-MAY-2017 16:34, No significant change was found Confirmed by GRACE QUIJANO ([id number]) on 05/24/2017 10:34:18 PM Impression Assessment and Plan 66-year-old male with past medical history of coronary artery disease status post stents placed in November 2016, abdominal aortic aneurysm, back pain presented to the ER with complaints of left-sided chest pain which started about a day ago. He also complains of pain in his upper back between his shoulder blades. 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 Negative MRI of the brain. Sinuses are now clear - Cervical spine CT ordered Back pain: Lumbar spine CT 11/29- IMPRESSION: 1. No acute fractures or subluxations 2. Small left paracentral disc protrusion at the L5-S1 level. 3. Mild circumferential disc bulges at the L3-4, and L4-5 levels with mild spinal stenosis 4. 3.7 cm infrarenal abdominal aortic aneurysm Thoracic spine CT: 11/29 - IMPRESSION: 1. Mild multilevel degenerative changes 2. No acute fractures 3. Stable 3 mm right upper lobe pulmonary nodule 4. No destructive lesions are visualized. - Patient keeps requesting for Dilaudid Depression: - Continue Prozac DVT prophylaxis: SCDs Full code Disposition: Admitted to telemetry Attending Addendum: I physically seen and examined this patient, have supervised the medical residents activities, and agree with the H&P as noted above with the following exceptions: NONE The patient is awake, well-developed and adequately nourished, alert and oriented 3, normocephalic and atraumatic, lying in bed and in no acute distress. HEENT--PERRL, EOMI, mucous membranes and oropharynx dry. Neck--supple, no JVD or bruits, thyroid normal, trachea midline, no adenopathy. Heart--normal S1 and S2, no extra beats, no murmurs, rubs or gallops. Lungs--clear bilaterally with good air movement, no respiratory distress, no accessory muscle use. Abdomen--normal bowel sounds and soft, nontender and nondistended, no hernias or masses, no organomegaly. Extremities--no cyanosis, clubbing or edema. There are good distal pulses b/l. Dermatologic--normal skin turgor, normal color, warm and dry, no abnormal lymph nodes, no rash. Neurologic--cranial nerves II through XII grossly intact, motor and sensory examination normal. Rheumatologic--normal range of motion, nontender, muscles and joints. Psychiatric--normal affect. Assessment and Plan: 1. Precordial chest pain--the patient will be admitted to telemetry unit for serial cardiac enzymes, cardiac rhythm monitoring and a 2-D echo cardiac with Dopplers. Interscapular pain--the patient has had a significant workup in the past on November 2016, including a CT of the thoracic spine and lumbar spine without significant abnormality. The patient continually requested IV Dilaudid in the emergency department and once he's reached the medical floor. There is no reason that I see that the patient's condition showed require such a strong narcotic medication, and he will be placed on IV Tylenol and IV Toradol when necessary. Initial troponin is negative, and EKG shows no significant change compared to . Continue aspirin, Plavix, beta kg, lisinopril and statin. Cardiology consult. Level of Care Telemetry Resuscitation Status FULL RESUSCITATION VTE Prophylaxis Given or contraindicated: SCD's
[2017-05-24] MEDS ORDERED: ONDANSETRON INJ 2 MG/ML 2 ML VIAL IV PRN (23:30)
[2017-05-24] MEDS ORDERED: CLONAZEPAM 0.5 MG TAB PO PRN (23:30)
[2017-05-24] MEDS ORDERED: GABAPENTIN 100 MG CAP PO PRN (23:30)
[2017-05-24] MEDS ORDERED: NITROGLYCERIN 0.4 MG SL PER TAB CHARGE SL PRN (23:30)
[2017-05-24] MEDS ORDERED: ACETAMINOPHEN 325 MG TAB PO PRN (23:30)
[2017-05-24] MEDS ORDERED: POLYETHYLENE (MIRALAX) 17 GM PACK PO PRN (23:30)
[2017-05-24] MEDS ORDERED: MAGNESIUM HYDROXIDE SUSP 30 ML UDC PO PRN (23:30)
[2017-05-25] VITALS (7 sets, daily range): BP systolic 101–118; BP diastolic 52–73; PULSE 51–57; TEMP 36.4–36.8; O2SAT 95–99; Ht 182.9 cm; Wt 88.3 kg
[2017-05-25] MEDS: DICLOFENAC SOD 1% GEL 100 GM TUBE EXT PRN ×2 (00:44→08:10)
[2017-05-25] MEDS ORDERED: NURSING VERBAL MED ORDER ONE (02:15)
[2017-05-25] MEDS ORDERED: IV FLUIDS COMPLETED PRN (02:15)
[2017-05-25] MEDS ORDERED: MoRPHine SULFATE 2 MG/ML CARP IV STA (02:21)
[2017-05-25] MEDS: SODIUM CHLORIDE 0.9% 1000ML 1,000 ML IV SCH ×3 (03:11→22:47)
[2017-05-25 05:40] LABS: HEMATOCRIT 42.8 % (42-52); MEAN CELL VOLUME 88.8 fL (80-100); MEAN CORPUSCULAR HEMOGLOBIN 30.5 pg (25-34); MEAN CORPUSCULAR HGB CONC 34.3 g/dl (32-36); MEAN PLATELET VOLUME 9.3 fL (7.4-10.4); PLATELET COUNT 168 K/uL (130-400); RED BLOOD COUNT 4.82 M/uL (4.7-6.1); WHITE BLOOD COUNT 5.92 K/uL (4.8-10.8)
[2017-05-25 06:10] LABS: CALCIUM 8.7 mg/dl (8.5-10.1); CREATININE 0.93 mg/dl (0.60-1.40); POTASSIUM 4.4 mmol/L (3.5-5.1)
--- NOTE | 2017-05-25 06:50 | DIAGNOSTIC IMAGING REPORT ---
CERVICAL SPINE W/O CT DOSE: 234.89 mGy.cm HISTORY: Pain. Radiculopathy. neck pain with bilateral radicular symptoms TECHNIQUE: Multiaxial CT images of the cervical spine were performed and reformatted in the sagittal and coronal plane without the use of contrast. COMPARISON: None. FINDINGS: No fractures. No subluxation. Prevertebral soft tissues and the C1-C2 interval are intact. No pneumothorax. Moderate degenerative disc change throughout. No evidence for compression deformity. Unchanging salivary gland calcifications. IMPRESSION: Moderate degenerative disc change throughout the entire cervical region. No acute process. The above report was generated using voice recognition software. It may contain grammatical, syntax or spelling errors. Electronically signed by: Suhail Jernigan M.D. 05/25/2017 6:49 AM Dictated Date/Time: 05/25/2017 6:48 AM
[2017-05-25] MEDS: PANTOprazole SOD 40 MG TAB PO SCH (08:06)
[2017-05-25] MEDS: ASPIRIN 81 MG ECTAB PO SCH (08:08)
[2017-05-25] MEDS: CLOPIDOGREL BISULFATE 75 MG TAB PO SCH (08:09)
[2017-05-25] MEDS: LISINOPRIL 2.5 MG TAB PO SCH (08:09)
[2017-05-25] MEDS: ROSUVASTATIN CALCIUM 20 MG TAB PO SCH (09:04)
[2017-05-25] MEDS ORDERED: REGADENOSON 0.4 MG/5 ML SYR ONE (09:23)
[2017-05-25] MEDS ORDERED: HYDROmorphone INJ 0.5 MG/0.5 ML SYR IV STA (09:33)
[2017-05-25] MEDS ORDERED: HYDROmorphone INJ 1 MG/ML SYR IV PRN (09:45)
[2017-05-25] MEDS: HYDROmorphone INJ 0.5 MG/0.5 ML SYR IV PRN ×3 (14:07→22:45)
--- NOTE | 2017-05-25 16:21 | Progress Note ---
Subjective Date of Service: May 25, 2017. Subjective this pt gives history of chest pain relieved with nitro and not persistent neck and back pain, does have a history of cardiac stent in the past. is agreeable to ousmane scan and iv pain control measures Problem List Medical Problems: (1) Abdominal pain Status: Acute (2) Chest pain Status: Acute (3) Chest pain Status: Acute (4) Colitis Status: Acute (5) Dehydration Status: Acute (6) Dehydration Status: Acute (7) Fall Status: Acute (8) Flank pain Status: Acute (9) Headache Status: Acute (10) History of aortic aneurysm Status: Acute (11) Left sided abdominal pain Status: Acute (12) Left sided chest pain Status: Acute (13) Nasal bleeding Status: Acute (14) Non-cardiac chest pain Status: Acute (15) Pain, dental Status: Acute (16) Pneumonia Status: Acute (17) Precordial chest pain Status: Acute (18) Precordial chest pain Status: Acute (19) Right hand weakness Status: Acute (20) Right knee pain Status: Acute (21) Right shoulder pain Status: Acute (22) Transient weakness of left leg Status: Acute Review of Systems Constitutional: + weakness, + fatigue, No fever, No chills Respiratory: No cough, No sputum, No wheezing, No shortness of breath Cardiac: + chest pain, No orthopnea, No PND, No edema Abdomen: No pain, No nausea, No vomiting, No diarrhea Musculoskeletal: No joint pain, No muscle pain, No swelling Neurologic: No memory loss, No weakness Psychiatric: No depression symptoms, No anhedonism Objective Vital Signs Date Time Temp Pulse Resp B/P (MAP) Pulse Ox O2 Delivery O2 Flow Rate FiO2 05/25/17 14:11 36.5 56 18 118/73 (88) 99 Room Air 05/25/17 12:00 Room Air 05/25/17 08:00 Room Air 05/25/17 06:47 36.5 57 18 102/60 (74) 95 Room Air 05/25/17 04:00 36.4 51 18 104/64 (77) 97 Room Air 05/25/17 04:00 Room Air 05/25/17 01:30 36.8 52 18 116/63 97 Room Air 05/25/17 00:58 53 16 119/64 98 05/25/17 00:34 53 16 119/64 98 Room Air 05/24/17 23:57 48 05/24/17 22:36 51 95 05/24/17 22:31 50 111/64 95 05/24/17 22:26 54 95 05/24/17 22:21 48 96 05/24/17 22:16 50 96 05/24/17 22:11 50 96 05/24/17 22:06 58 95 05/24/17 22:01 58 103/64 96 05/24/17 21:56 51 96 05/24/17 21:51 54 95 05/24/17 21:46 50 97 05/24/17 21:41 54 95 05/24/17 21:36 55 110/66 96 05/24/17 21:31 62 95 05/24/17 21:26 62 93 05/24/17 21:21 61 95 05/24/17 21:16 58 94 05/24/17 21:11 62 05/24/17 21:06 54 95 05/24/17 21:01 58 96 05/24/17 20:56 55 95 05/24/17 20:51 65 26 92 05/24/17 20:46 58 15 94 05/24/17 20:41 56 16 94 05/24/17 20:36 55 17 95 05/24/17 20:31 55 19 94 05/24/17 20:26 56 17 95 05/24/17 20:21 56 18 95 05/24/17 20:16 55 18 94 05/24/17 20:11 56 21 94 05/24/17 20:06 67 18 94 05/24/17 20:01 55 18 93 05/24/17 19:56 59 17 94 05/24/17 19:51 59 23 94 05/24/17 19:46 63 9 92 05/24/17 19:41 59 17 93 05/24/17 19:36 61 23 94 05/24/17 19:31 61 18 93 05/24/17 19:26 59 24 94 05/24/17 19:21 60 15 93 05/24/17 19:16 62 22 93 05/24/17 19:11 61 21 93 05/24/17 19:06 63 20 92 05/24/17 19:01 62 20 93 05/24/17 18:56 60 14 94 05/24/17 18:51 62 23 93 05/24/17 18:46 65 12 96 05/24/17 18:41 62 18 95 05/24/17 18:36 61 19 94 05/24/17 18:31 60 17 96 05/24/17 18:16 59 24 97 05/24/17 18:11 62 11 128/82 97 05/24/17 18:07 58 05/24/17 18:06 59 20 96 05/24/17 18:03 97 Room Air 05/24/17 18:03 151/76 05/24/17 17:45 36.7 62 18 137/77 98 Room Air Physical Exam General Appearance: WD/WN, + mild distress Neck: supple, no JVD Respiratory/Chest: chest non-tender, lungs clear Cardiovascular: regular rate, rhythm, no murmur Abdomen: normal bowel sounds, non tender, soft Extremities: no pedal edema, no calf tenderness Neurologic/Psychiatric: alert, oriented x 3 Laboratory Results Last 24 Hours Test 05/24/17 18:00 05/24/17 18:08 05/24/17 18:40 05/25/17 05:29 White Blood Count 7.13 K/uL 5.92 K/uL Red Blood Count 5.41 M/uL 4.82 M/uL Hemoglobin 16.5 g/dL 14.7 g/dL Hematocrit 47.7 % 42.8 % Mean Corpuscular Volume 88.2 fL 88.8 fL Mean Corpuscular Hemoglobin 30.5 pg 30.5 pg Mean Corpuscular Hemoglobin Concent 34.6 g/dl 34.3 g/dl Platelet Count 186 K/uL 168 K/uL Mean Platelet Volume 9.2 fL 9.3 fL Neutrophils (%) (Auto) 70.1 % Lymphocytes (%) (Auto) 22.0 % Monocytes (%) (Auto) 5.6 % Eosinophils (%) (Auto) 1.8 % Basophils (%) (Auto) 0.4 % Neutrophils # (Auto) 4.99 K/uL Lymphocytes # (Auto) 1.57 K/uL Monocytes # (Auto) 0.40 K/uL Eosinophils # (Auto) 0.13 K/uL Basophils # (Auto) 0.03 K/uL RDW Standard Deviation 42.0 fL 42.9 fL RDW Coefficient of Variation 13.0 % 13.1 % Immature Granulocyte % (Auto) 0.1 % Immature Granulocyte # (Auto) 0.01 K/uL Sodium Level 140 mmol/L 141 mmol/L Potassium Level 4.2 mmol/L 4.4 mmol/L Chloride Level 105 mmol/L 107 mmol/L Carbon Dioxide Level 27 mmol/L 29 mmol/L Anion Gap 8.0 mmol/L 5.0 mmol/L Blood Urea Nitrogen 18 mg/dl 19 mg/dl Creatinine 0.96 mg/dl 0.93 mg/dl Est Creatinine Clear Calc Drug Dose 83.1 ml/min 85.8 ml/min Estimated GFR () 95.1 98.8 Estimated GFR (Non- 82.0 85.2 BUN/Creatinine Ratio 18.7 20.0 Random Glucose 77 mg/dl 81 mg/dl Calcium Level 9.2 mg/dl 8.7 mg/dl Magnesium Level 2.2 mg/dl Total Bilirubin 0.4 mg/dl Aspartate Amino Transf (AST/SGOT) 13 U/L Alanine Aminotransferase (ALT/SGPT) 22 U/L Alkaline Phosphatase 106 U/L Total Protein 8.0 gm/dl Albumin 3.7 gm/dl Globulin 4.3 gm/dl Albumin/Globulin Ratio 0.9 Thyroid Stimulating Hormone (TSH) 1.040 uIu/ml Hepatitis C Antibody Screen NEG Bedside Troponin I < 0.030 ng/ml Prothrombin Time 10.5 SECONDS Prothromb Time International Ratio 1.0 Activated Partial Thromboplast Time 29.7 SECONDS Partial Thromboplastin Ratio 1.1 Troponin I < 0.015 ng/ml Test 05/25/17 14:13 Troponin I < 0.015 ng/ml Assessment and Plan 66-year-old male with chest pain relieced with nitro and a past medical history of coronary artery disease status post stents placed in November 2016, abdominal aortic aneurysm, chronic neck and back pain Precordial chest pain History of coronary artery disease status post stent placement: pending interpretation of ousmane scan - Continue aspirin,Plavix, statin, beta kg and lisinopril Right-handed numbness and tingling: 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 Negative MRI of the brain. Sinuses are now clear - Cervical spine CT shows djd pain seems more radicular from thoracic spine Stable 3 mm right upper lobe pulmonary nodule will follow up Depression: Prozac DVT prophylaxis: SCDs
--- NOTE | 2017-05-25 17:40 | Myocardial Perfusion Study ---
Myocardial Perfusion Study Rpt Myocardial Perfusion Study Rpt Date of Service 05/25/2017 Myocardial Perfusion Study Rpt Procedure: 1. Myocardial perfusion study performed in multiple views/images 2. Lexiscan pharmacologic stress ECG Indications: 1. Chest pain 2. CAD Consent: Informed written consent was obtained prior to the procedure. Ordering physician: Dr. Loaiza Procedural details: For the stress portion of the study, Lexiscan 0.4 mg was intravenously administered followed by a saline flush. This was followed by 33.2 mCi of technetium 99m Cardiolite, injected at 1:20 p.m. on 05/25/2017. 30 minutes following the injection, imaging of the heart was performed in multiple projections. For the rest portion of the study, 9.8 mCi technetium 99m Cardiolite was injected intravenously at 11:35 a.m. on 05/25/2017. 1 hour following the injection, imaging of the heart was performed in the same projections. Lexiscan stress ECG: Resting ECG demonstrated: Sinus bradycardia at 55 bpm. Septal infarct. Maximum heart rate: 91 bpm Resting blood pressure: 124/74 mmHg Maximum blood pressure: 124/74 mmHg Maximal, age-predicted heart rate: 59 % Significant ST changes: None Arrhythmia: None Symptoms: Shortness of breath Findings: Rotating raw imaging demonstrated no significant lung uptake. There is no significant motion artifact. Heart size appeared normal. Myocardial perfusion demonstrated a small area of mildly reduced uptake in the inferolateral wall at the base which was fixed and post stress and rest imaging. There is no significant reversible defect to suggest ischemia.. Ejection fraction: 64 % Wall motion: Normal No significant transient ischemic dilation. Impression: 1. Pharmacologic myocardial perfusion study was negative for ischemic changes. 2. Normal wall motion and systolic function. EF 64%. 3. Small fixed basal inferolateral defect likely represents attenuation artifact given normal wall motion. Cannot rule out small infarct. 4. Lexiscan induced shortness of breath. 5. Nondiagnostic Lexiscan ECG.
[2017-05-25] MEDS ORDERED: FLUOXETINE HCL 10 MG CAP PO SCH (21:00)
[2017-05-26] MEDS: HYDROmorphone INJ 0.5 MG/0.5 ML SYR IV PRN ×3 (02:41→11:31)
[2017-05-26 03:48] VITALS: BP 109/62; PULSE 51; TEMP 36.5; O2SAT 96
[2017-05-26] MEDS: SODIUM CHLORIDE 0.9% 1000ML 1,000 ML IV SCH (07:26)
[2017-05-26 07:48] VITALS: BP 122/69; PULSE 54; TEMP 36.7; O2SAT 96
[2017-05-26] MEDS: LISINOPRIL 2.5 MG TAB PO SCH (09:35)
[2017-05-26] MEDS: ASPIRIN 81 MG ECTAB PO SCH (09:35)
[2017-05-26] MEDS: ROSUVASTATIN CALCIUM 20 MG TAB PO SCH (09:35)
[2017-05-26] MEDS: CLOPIDOGREL BISULFATE 75 MG TAB PO SCH (09:35)
[2017-05-26] MEDS: PANTOprazole SOD 40 MG TAB PO SCH (09:35)
[2017-05-26] MEDS ORDERED: RXC5 PO (11:37)
--- NOTE | 2017-05-26 11:51 | Discharge Instructions ---
Discharge Instructions Date of Service May 26, 2017. Admission Reason for Admission: Heart Pain, Chest Pain Discharge Discharge Diagnosis / Problem: non cardiac chest pain, negative stress test Discharge Goals Goal(s): Diagnostic testing, Therapeutic intervention Activity Recommendations Activity Limitations: resume your previous activity . Current Hospital Diet Patient's current hospital diet: AHA Diet (Heart Healthy) Discharge Diet Recommended Diet: Regular Diet Pending Studies Studies pending at discharge: no Laboratory Results Lipid Panel Test 02/27/17 15:19 Range/Units Triglycerides Level 115 0-150 mg/dl Cholesterol Level 242 H 0-200 mg/dl HDL Cholesterol 52 mg/dl Cholesterol/HDL Ratio 4.7 LDL Cholesterol, Calculated 167 mg/dl Medical Emergencies . Who to Call and When: Medical Emergencies: If at any time you feel your situation is an emergency, please call 911 immediately. . Non-Emergent Contact Non-Emergency issues call your: Specialist (please follow up with pain management) . . "Provider Documentation" section prepared by Isaac Loaiza. . VTE Core Measure Inpt VTE Proph given/why not?: SCD's
[2017-05-26 11:53] VITALS: BP 128/64; PULSE 55; TEMP 36.6; O2SAT 98
[2017-05-26 12:28] VITALS: BP 128/64; PULSE 55; TEMP 36.6; O2SAT 98
--- NOTE | 2017-05-26 13:20 | Discharge Summary ---
Discharge Summary Date of Service May 26, 2017. Discharge Summary Admission Date: May 25, 2017 at 00:35 Discharge Date: May 26, 2017 Discharge Disposition: Home Principal Diagnosis: non cardiac chest pain Immunizations: Have You Had Influenza Vaccine: Yes Influenza Vaccine Date: Sep 01, 2013 History of Tetanus Vaccine?: Yes Tetanus Immunization Date: Jul 23, 2004 History of Pneumococcal: Yes Pneumococcal Date: Dec 02, 2012 History of Hepatitis B Vaccine: Yes Hepatitis Immunization Date: Jul 23, 2005 Medication Reconciliation New Medications: Oxycodone HCl (Oxycodone HCl) 5 Mg Tab 10 MG PO Q6, #20 DOSE Continued Medications: Aspirin (Aspirin Ec) 81 Mg Tab 81 MG PO DAILY Clonazepam (Klonopin) 0.5 Mg Tab 0.5 MG PO HS PRN for RESTLESS LEGS, TAB Clopidogrel Bisulfate (Clopidogrel) 75 Mg Tab 75 MG PO QAM, #30 TAB 5 Refills Fluoxetine (Prozac) 10 Mg Cap 10 MG PO HS, CAP Gabapentin (Neurontin) 100 Mg Cap 100 MG PO TID PRN for PRN, CAP Lisinopril (Lisinopril) 2.5 Mg Tab 2.5 MG PO QAM, #30 TAB 5 Refills Multiple Vitamins W/ Minerals (Mens 50+ Advanced) 1 Cap Cap 1 CAP PO DAILY Nitroglycerin (Nitrostat) 0.4 Mg/1 Tab Subl 0.4 MG SL [id number] PRN for Chest Pain, #1 BTL 0 Refills maximum 3 in 15 minutes Omeprazole (Prilosec) 40 Mg Cap 40 MG PO QAM, #30 CAP 5 Refills Rosuvastatin Calcium (Crestor) 40 Mg Tab 40 MG PO DAILY, TAB Discharge Exam Review of Systems: Constitutional: No fever, No chills Respiratory: No cough, No sputum, No wheezing Cardiovascular: + chest pain, No orthopnea, No PND, No edema, No claudication Abdomen: No pain, No nausea, No vomiting, No diarrhea Neurologic: No memory loss, No paralysis, No weakness Psychiatric: + depression symptoms, No anhedonism Physical Exam: General Appearance: WD/WN, no apparent distress Eyes: PERRL, EOMI Respiratory/Chest: chest non-tender, lungs clear, normal breath sounds Cardiovascular: regular rate, rhythm, no murmur Abdomen / GI: normal bowel sounds, non tender, soft Hospital Course 66-year-old male with chest pain relieved with nitro and a past medical history of coronary artery disease status post stents placed in November 2016, abdominal aortic aneurysm, chronic neck and back pain, had negative ousmane scan and will see pain management after discharge Precordial chest pain History of coronary artery disease status post stent placement: is not acute ACS - Continue aspirin,Plavix, statin, beta kg and lisinopril Right-handed numbness and tingling: 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 Negative MRI of the brain. Sinuses are now clear - Cervical spine CT shows djd pain seems more radicular from thoracic spine, will see pain management has seen in past with some relief Stable 3 mm right upper lobe pulmonary nodule will follow up Depression: Prozac Total Time Spent: Greater than 30 minutes This includes examination of the patient, discharge planning, medication reconciliation, and communication with other providers. Discharge Instructions Please refer to the electronic Patient Visit Report (Discharge Instructions) for additional information. Additional Copies To Neisha Miller DO
== END 2017-05-26 13:33 | disposition home or self-care (01) ==
LOC: C.EDB 17:43 → C.2E 05-25 00:35 → ENRESERV 05-25 00:49
PROVIDERS: ADMIT Family Medicine; ATTEND Internal Medicine
DX: R07.89 Other chest pain (principal); I25.110 Atherosclerotic heart disease of native coronary artery with unstable angina pectoris; Z95.5 Presence of coronary angioplasty implant and graft; I25.2 Old myocardial infarction; F17.210 Nicotine dependence, cigarettes, uncomplicated; Z79.82 Long term (current) use of aspirin; Z79.899 Other long term (current) drug therapy; I71.4 Abdominal aortic aneurysm, without rupture

== ENCOUNTER 2017-07-31 11:06 | Emergency (ER) | payer OTHER ==
[~2017-07-31] VITALS: Ht 182.9 cm; Wt 87.7 kg
[~2017-07-31 11:06] MED LIST changes: -OXYC1TAB3 PO; +RXC5 PO
[2017-07-31 11:09] VITALS: TEMP 36.4; Ht 182.9 cm; Wt 87.7 kg
[2017-07-31] MEDS ORDERED: HYDROmorphone INJ 2 MG/ML SYR/VIAL IM STA (11:47)
[2017-07-31] MEDS ORDERED: ONDANSETRON 4MG OD TAB PO STA (11:47)
--- NOTE | 2017-07-31 12:11 | DIAGNOSTIC IMAGING REPORT ---
RIGHT KNEE 1 OR 2 VIEWS ROUTINE CLINICAL HISTORY: Right knee pain following fall. Locked knee. COMPARISON: None FINDINGS: Alignment of the right knee is anatomic. There is no acute fracture. There is a small right knee joint effusion. There is mild to moderate medial compartment joint space narrowing. There may be edema within Hoffa's fat pad which is suboptimally assessed by radiography. IMPRESSION: 1. No acute fracture. 2. Small right knee joint effusion. Electronically signed by: Charlie Obrien M.D. 07/31/2017 12:10 PM Dictated Date/Time: 07/31/2017 12:08 PM
[2017-07-31] MEDS ORDERED: HYDROmorphone INJ 1 MG/ML SYR IM STA (12:52)
--- NOTE | 2017-07-31 12:53 | EMERGENCY ROOM VISIT NOTE ---
ED Visit Note First contact with patient: 11:41 HPI: right knee pain after fall 2 days [employer]. PE: AFVSS, NAD NC/AT RRR, no murmurs CTAB Abd soft NT/ND Ext: Right knee mild swelling, mild ttp. Pain with active/passive ROM. Neuro: grossly intact Plan: xray negative for fx. Knee immobilizer, ortho f/u as schedule this afternoon. I reviewed the patient's past medical history, medications, and visit nursing notes. I discussed the case with the physician learning support assistant, examined the patient, and agree with the findings and plan as documented in the physician assistants note.
[2017-07-31 13:06] VITALS: BP 157/84; PULSE 63; O2SAT 97
--- NOTE | 2017-07-31 13:07 | EMERGENCY ROOM VISIT NOTE ---
ED Visit Note First contact with patient: 11:41 CHIEF COMPLAINT: Right knee injury HISTORY OF PRESENT ILLNESS: This 67-year-old male presents the ER with chief complaint of right knee pain. The patient states that 2 days ago his right knee locked and then he fell forward landing on his right knee. He states he was able to get his knee loosened up and he has been taking ibuprofen and Tylenol. He states this morning when he got up it was much more painful and he was unable to bear weight. The patient has seen Dr. Lawrence in the past for arthroscopic surgery on that knee. He called him this morning and he was instructed to come to the emergency room for pain control. REVIEW OF SYSTEMS:6 system review was performed and was negative unless stated otherwise in history of present illness. PMH: The patient is healthy; prior right knee arthroscopic surgery, heart disease, kidney stones, colectomy SOCIAL HISTORY: Patient denies any tobacco or alcohol use PHYSICAL EXAM: Vital Signs: Were reviewed Reviewed Nurse's notes. GENERAL: 67- year-old white male appears uncomfortable secondary to knee pain. MENTAL STATUS : Alert, oriented, and cooperative. RIGHT KNEE: No gross bony deformity noted. No erythema or edema noted. The patient has tenderness palpation over both the medial and lateral joint space. Limited range of motion secondary to pain. No gross ligament instability noted. EMERGENCY DEPARTMENT COURSE: The patient was evaluated. The patient was given Dilaudid 2 mg IM and Zofran 4 mg ODT. X-ray of the right knee was ordered and interpreted by the radiologist and myself. DIAGNOSTICS:RIGHT KNEE 1 OR 2 VIEWS ROUTINE CLINICAL HISTORY: Right knee pain following fall. Locked knee. COMPARISON: None FINDINGS: Alignment of the right knee is anatomic. There is no acute fracture. There is a small right knee joint effusion. There is mild to moderate medial compartment joint space narrowing. There may be edema within Hoffa's fat pad which is suboptimally assessed by radiography. IMPRESSION: 1. No acute fracture. 2. Small right knee joint effusion. Electronically signed by: Charlie Obrien M.D. 07/31/2017 12:10 PM Dictated Date/Time: 07/31/2017 12:08 PM The patient was informed of the findings. The patient was reevaluated and stated that his pain was now down to a 5 out of 10. The patient was placed in a knee brace. The patient was independently evaluated by Dr. torrez who agreed with treatment plan. The case management coordinator spoke with Dr. Lawrence's office and he has an appointment today at 340. The patient was given additional 1 mg of Dilaudid IM before discharge. The patient is happy with treatment plan and was discharged home with a friend driving. DIAGNOSIS: Right knee pain DISCHARGE INSTRUCTIONS: Appointment today at 3:[address] Lawrence. Keep knee immobilizer in place until seen by Dr. Lawrence. Problem List Medical Problems: (1) Abdominal aneurysm Status: Chronic (2) Abscess Status: Chronic (3) Colostomy Status: Resolved (4) Coronary artery disease Status: Chronic (5) Diverticulitis of colon Status: Resolved (6) GI bleed Status: Resolved (7) Kidney stone Status: Resolved (8) Myocardial infarction Status: Chronic (9) Pneumonia Status: Chronic Surgical Problems: (1) History of appendectomy Status: Resolved (2) History of colectomy Status: Resolved Current/Historical Medications Scheduled Aspirin (Aspirin Ec), 81 MG PO DAILY Clopidogrel Bisulfate (Clopidogrel), 75 MG PO QAM Fluoxetine (Prozac), 10 MG PO HS Lisinopril (Lisinopril), 2.5 MG PO QAM Multiple Vitamins W/ Minerals (Mens 50+ Advanced), 1 CAP PO DAILY Omeprazole (Prilosec), 40 MG PO QAM Rosuvastatin Calcium (Crestor), 40 MG PO DAILY Scheduled PRN Clonazepam (Klonopin), 0.5 MG PO HS PRN for RESTLESS LEGS Gabapentin (Neurontin), 100 MG PO TID PRN for PRN Nitroglycerin (Nitrostat), 0.4 MG SL [id number] PRN for Chest Pain Allergies Coded Allergies: Penicillins (Verified Allergy, Severe, SEVERE SWELLING, anaphylaxis, ) Metronidazole (Verified Allergy, Intermediate, swelling, 05/24/17) Vital Signs Date Time Temp Pulse Resp B/P (MAP) Pulse Ox O2 Delivery O2 Flow Rate FiO2 07/31/17 11:09 36.4 66 18 155/82 96 Room Air Medications Administered Medications (Trade) Dose Ordered Sig/Alan Route Start Time Stop Time Status Last Admin Dose Admin Hydromorphone HCl (Dilaudid Inj) 2 mg NOW STAT IM 07/31/17 11:47 07/31/17 11:49 DC 07/31/17 12:00 2 MG Ondansetron HCl (Zofran Odt) 4 mg NOW STAT PO 07/31/17 11:47 07/31/17 11:49 DC 07/31/17 12:00 4 MG Departure Information Referrals Mariah Lewis C.R.N.P (PCP) Patient Instructions My [facility]
== END 2017-07-31 13:22 | disposition home or self-care (01) ==
LOC: C.EDB 11:07 → C.EDD 13:22
DX: S89.91XA Unspecified injury of right lower leg, initial encounter (principal); M23.91 Unspecified internal derangement of right knee; M25.461 Effusion, right knee; W19.XXXA Unspecified fall, initial encounter

== ENCOUNTER 2017-08-08 12:37 | Emergency (ER) | payer OTHER ==
[~2017-08-08] VITALS: Ht 182.9 cm; Wt 87.0 kg
[~2017-08-08 12:37] MED LIST changes: -RXC5 PO
[2017-08-08 12:39] VITALS: TEMP 36.7; Ht 182.9 cm; Wt 87.0 kg
--- NOTE | 2017-08-08 13:20 | EMERGENCY ROOM VISIT NOTE ---
ED Visit Note First contact with patient: 13:10 CHIEF COMPLAINT: knee pain HISTORY OF PRESENT ILLNESS: This 67-year-old male patient presents to the emergency department ambulatory requesting narcotic pain medication for ongoing right knee pain. The patient was seen here earlier in the month. He has had ongoing knee pain. He saw Dr. Lawrence last week and had an MRI. He states that he had surgery scheduled for today. He states; however, that the surgery was canceled because they did not have clearance from his vice president and portfolio manager. He states he now has an appointment with cardiology on Monday. The patient states that Dr. Lawrence office would not give him any additional pain medication. He has not spoken with his family doctor regarding this. He presents to the emergency department solely requesting additional pain medication. He has not had any fevers, redness, swelling, warmth or new injury. REVIEW OF SYSTEMS: A 6 system review of systems was completed with positives and pertinent negatives listed in the HPI. ALLERGIES: Metronidazole, penicillin MEDICATIONS: Seen nursing notes PMH: Hypertension, hyperlipidemia SOCIAL HISTORY: The patient is a smoker. He lives locally PHYSICAL EXAM: Vital Signs: Reviewed Nurse's notes, vital signs stable. GENERAL : This is a 67-year-old male, no acute distress, but appears in pain, well- developed, well-nourished. MENTAL STATUS: Alert, oriented to person place and time, and cooperative. MUSCULOSKELETAL: The right knee is not swollen. There is no ecchymosis. There is no joint effusion present. The patient is tender diffusely. The foot and toes are warm and well-perfused. Dorsalis pedis pulse 2 +. Sensation to pain and light touch is intact. Capillary refill less than 2 seconds. EMERGENCY DEPARTMENT COURSE: I examined the patient. The patient has had ongoing knee pain. The patient has been seeing orthopedics. The surgery scheduled today for meniscal repair had been canceled pending clearance by his vice president and portfolio manager. He has scheduled a cardiology appointment for Monday. I did discuss the case with Jose Eckert PA-C. He did make several phone calls and found that there was a prescription waiting for the patient at the office. He came down to the emergency department and gave me a hand written prescription for the patient. The patient is requesting an IM injection of Dilaudid for his pain. He states this is what he received last time. The patient does not have any erythema, warmth, swelling in this is an ongoing problem. I advised him that an IM injection of such potent narcotic is not indicated. I discussed the case with who suggested giving the patient the IM Dilaudid. He was given 1 mg IM Dilaudid. He should follow-up with orthopedics and cardiology as scheduled. The patient was also seen and examined by who agrees with the assessment and treatment plan. The patient was discharged home in good condition. Problem List Medical Problems: (1) Abdominal aneurysm Status: Chronic (2) Abscess Status: Chronic (3) Colostomy Status: Resolved (4) Coronary artery disease Status: Chronic (5) Diverticulitis of colon Status: Resolved (6) GI bleed Status: Resolved (7) Kidney stone Status: Resolved (8) Myocardial infarction Status: Chronic (9) Pneumonia Status: Chronic Surgical Problems: (1) History of appendectomy Status: Resolved (2) History of colectomy Status: Resolved Current/Historical Medications Scheduled Aspirin (Aspirin Ec), 81 MG PO DAILY Clopidogrel Bisulfate (Clopidogrel), 75 MG PO QAM Fluoxetine (Prozac), 10 MG PO HS Lisinopril (Lisinopril), 2.5 MG PO QAM Multiple Vitamins W/ Minerals (Mens 50+ Advanced), 1 CAP PO DAILY Omeprazole (Prilosec), 40 MG PO QAM Rosuvastatin Calcium (Crestor), 40 MG PO DAILY Scheduled PRN Clonazepam (Klonopin), 0.5 MG PO HS PRN for RESTLESS LEGS Gabapentin (Neurontin), 100 MG PO TID PRN for PRN Nitroglycerin (Nitrostat), 0.4 MG SL [id number] PRN for Chest Pain Allergies Coded Allergies: Penicillins (Verified Allergy, Severe, SEVERE SWELLING, anaphylaxis, ) Metronidazole (Verified Allergy, Intermediate, swelling, 08/08/17) Vital Signs Date Time Temp Pulse Resp B/P (MAP) Pulse Ox O2 Delivery O2 Flow Rate FiO2 08/08/17 14:23 64 18 143/102 97 08/08/17 12:39 36.7 68 18 133/83 96 Room Air Medications Administered Medications (Trade) Dose Ordered Sig/Alan Route Start Time Stop Time Status Last Admin Dose Admin Hydromorphone HCl (Dilaudid Inj) 1 mg NOW STAT IM 08/08/17 13:41 08/08/17 13:43 DC 08/08/17 13:59 1 MG Departure Information Impression Primary Impression: Knee pain Dispostion Home / Self-Care Condition GOOD Referrals Mariah Lewis C.R.N.P (PCP) Nakul Lawrence M.D. Patient Instructions Knee Pain, My [facility] Additional Instructions Keep your cardiology appointment on Monday Follow up with orthopedics for further evaluation and management [place] as prescribed. Do not drive or drink alcohol or take tylenol when taking the norco Return with worsening symptoms Problem Qualifiers Primary Impression: Knee pain Chronicity: chronic Laterality: right Qualified Codes: M25.561 - Pain in right knee; G89.29 - Other chronic pain
[2017-08-08] MEDS ORDERED: HYDROmorphone INJ 1 MG/ML SYR IM STA (13:41)
[2017-08-08 14:23] VITALS: BP 143/102; PULSE 64; O2SAT 97
--- NOTE | 2017-08-08 14:30 | EMERGENCY ROOM VISIT NOTE ---
ED Visit Note First contact with patient: 13:10 The patient was seen and examined with Hue Lynn PA-C. I agree with the history, physical and findings. Please see the note for disposition and details.
== END 2017-08-08 14:24 | disposition home or self-care (01) ==
LOC: C.EDB 12:38 → C.EDD 14:24
DX: M25.561 Pain in right knee (principal); G89.29 Other chronic pain; I10 Essential (primary) hypertension; E78.5 Hyperlipidemia, unspecified; F17.210 Nicotine dependence, cigarettes, uncomplicated; I25.10 Atherosclerotic heart disease of native coronary artery without angina pectoris; Z87.442 Personal history of urinary calculi; I25.2 Old myocardial infarction; Z87.01 Personal history of pneumonia (recurrent); Z90.49 Acquired absence of other specified parts of digestive tract; Z79.82 Long term (current) use of aspirin; Z79.899 Other long term (current) drug therapy

== ENCOUNTER 2017-08-23 11:53 | Observation (INO) | payer OTHER ==
[~2017-08-23] VITALS: Ht 182.9 cm; Wt 89.5 kg
[2017-08-23 12:18] LABS: BASO % 0.3 %; BASO ABS # 0.03 K/uL (0-0.2); COMPLETE YES; EOS % 1.4 %; IG% 0.6 %; LYMPH % 15.4 %; LYMPH ABS # 1.38 K/uL (1.2-3.4); MEAN CELL VOLUME 86.9 fL (80-100); MEAN CORPUSCULAR HEMOGLOBIN 29.8 pg (25-34); MEAN CORPUSCULAR HGB CONC 34.3 g/dl (32-36); MEAN PLATELET VOLUME 10.1 fL (7.4-10.4); NEUT % 75.3 %; PLATELET COUNT 178 K/uL (130-400); RED BLOOD COUNT 5.87 M/uL (4.7-6.1); WHITE BLOOD COUNT 8.98 K/uL (4.8-10.8)
[2017-08-23] MEDS ORDERED: CLOP1TAB15 PO (12:18)
[2017-08-23] MEDS ORDERED: OMEP40CA41 PO (12:18)
[2017-08-23] MEDS ORDERED: NTRGSL/4 SL (12:18)
[2017-08-23] MEDS ORDERED: LISI-789 PO (12:18)
[2017-08-23] MEDS ORDERED: SODIUM CHLORIDE 0.9% 500ML 500 ML IV STA (12:19)
--- NOTE | 2017-08-23 12:27 | DIAGNOSTIC IMAGING REPORT ---
SINGLE VIEW CHEST CLINICAL HISTORY: Atypical chest pain. FINDINGS: An AP, portable, upright chest radiograph is compared to study dated 05/24/2017 and correlated with chest CT dated 05/07/2017. The examination is degraded by portable technique and patient rotation. The heart is top normal for projection and there is atherosclerotic calcification of the thoracic aorta. Mild emphysema and chronic interstitial thickening are similar to previous. No airspace consolidation or pleural effusion is identified. There is minimal left basilar atelectasis. No pneumothorax is seen. The skeletal structures are osteopenic. The bony thorax is grossly intact. IMPRESSION: Mild emphysematous change with no acute cardiopulmonary abnormality. Electronically signed by: Kj Wagner M.D. 08/23/2017 12:25 PM Dictated Date/Time: 08/23/2017 12:24 PM
[2017-08-23 12:30] LABS: PARTIAL THROMBOPLASTIN RATIO 1.2; PROTHROMBIN TIME (PATIENT) 10.4 SECONDS (9.0-12.0)
[2017-08-23] MEDS ORDERED: FENTANYL CITRATE INJ 50 MCG/1 ML 2 ML VIAL IV ONE (12:30)
[2017-08-23 12:32] LABS: ALT/SGPT 22 U/L (12-78); BLOOD UREA NITROGEN 18 mg/dl (7-18); BUN/CREATININE RATIO 16.7 (10-20); CALCIUM 9.6 mg/dl (8.5-10.1); CARBON DIOXIDE 25 mmol/L (21-32); CHLORIDE 105 mmol/L (98-107); GLUCOSE 104 mg/dl (70-99); POTASSIUM 4.7 mmol/L (3.5-5.1); SODIUM 135 mmol/L (136-145)
[2017-08-23 12:38] LABS: ALKALINE PHOSPHATASE 86 U/L (45-117); AST/SGOT 14 U/L (15-37)
[2017-08-23] MEDS ORDERED: ATORVASTATIN 40 MG TAB PO STA (12:52)
[2017-08-23] MEDS ORDERED: FENTANYL CITRATE INJ 50 MCG/1 ML 2 ML VIAL IV STA (12:52)
[2017-08-23] MEDS ORDERED: HEPARIN SOD 5000 UNIT/0.5 ML CARP ONE (13:12)
[2017-08-23] MEDS ORDERED: HEPARIN 25000 UNIT/500 ML D5W ONE (13:13)
--- NOTE | 2017-08-23 13:17 | EMERGENCY ROOM VISIT NOTE ---
History Report prepared by Irina: Nic Nicole Under the Supervision of: Dr. Candelario Chávez M.D. First contact with patient: 11:59 Chief Complaint: CHEST PAIN Stated Complaint: CHEST PAIN History of Present Illness The patient is a 67 year old white male with a past medical history of [place] who presents to the ED by EMS with a cc of constant centralized chest pain beginning this morning. States "feels like someone is sitting on my chest". Positive nausea, chills, cough, diaphoresis, SOB with exertion. Negative vomiting, leg swelling, fevers. He has five cardiac stents in place. Most recent stent placed 9 months ago. Took nitroglycerin which slightly improved pain. Was given aspirin en route along with the NTG. Source of History: patient Onset: This morning Position: chest (centralized) Timing: constant Modifying Factors (Relieving): other (NTG) Associated Symptoms: + chills, + diaphoresis, + cough, + nausea, No fevers, No vomiting Note: The patient denies leg swelling. Review of Systems See HPI for pertinent positives and negatives. A total of ten systems were reviewed and were otherwise negative. Past Medical & Surgical Medical Problems: (1) Abdominal aneurysm (2) Abscess (3) Back pain (4) CAD (coronary artery disease) (5) Chest pain (6) Colostomy (7) Coronary artery disease (8) Diverticulitis of colon (9) GI bleed (10) Kidney stone (11) Myocardial infarction (12) Pneumonia (13) sigmoid resection (14) Unstable angina Surgical Problems: (1) History of appendectomy (2) History of colectomy Family History Hypertension Social History Smoking Status: Current Every Day Smoker Alcohol Use: none Drug Use: none Marital Status: Housing Status: lives with significant other Occupation Status: retired Current/Historical Medications Scheduled Aspirin (Aspirin Ec), 81 MG PO DAILY Clopidogrel (Plavix), 75 MG PO QAM Fluoxetine (Prozac), 10 MG PO HS Lisinopril (Zestril), 1 TAB PO QAM Multiple Vitamins W/ Minerals (Mens 50+ Advanced), 1 CAP PO DAILY Omeprazole (Prilosec), 40 MG PO DAILY Rosuvastatin Calcium (Crestor), 40 MG PO DAILY Scheduled PRN Clonazepam (Klonopin), 0.5 MG PO HS PRN for RESTLESS LEGS Gabapentin (Neurontin), 100 MG PO TID PRN for PRN Nitroglycerin (Nitrostat), 1 TAB SL UD PRN for CHEST PAIN Allergies Coded Allergies: Penicillins (Verified Allergy, Severe, SEVERE SWELLING, anaphylaxis, 08/23) Metronidazole (Verified Allergy, Intermediate, swelling, 08/23/17) Physical Exam Vital Signs Date Time Temp Pulse Resp B/P (MAP) Pulse Ox O2 Delivery O2 Flow Rate FiO2 08/23/17 13:30 133/94 08/23/17 13:23 63 22 97 08/23/17 13:00 139/82 08/23/17 12:53 64 20 96 08/23/17 12:30 142/91 08/23/17 12:30 59 20 142/91 97 Nasal Cannula 2.0 08/23/17 12:23 62 20 95 08/23/17 12:10 60 08/23/17 12:07 Nasal Cannula 2.0 08/23/17 12:01 36.7 62 22 107/79 96 Room Air 08/23/17 12:00 107/79 Physical Exam GENERAL: Awake, alert, well-appearing, NAD HENT: Normocephalic, atraumatic. EYES: Normal conjunctiva. Sclera non-icteric. NECK: Supple. No nuchal rigidity. FROM. RESPIRATORY: CTAB, no rhonchi, wheezing, crackles CARDIAC: RRR, no MRG ABDOMEN: Soft, NTND, BS+ MSK: No reproducible chest wall TTP. No LE swelling with the exception of the right knee which has several well healing incisions. Well healing without purulence. NEURO: GCS 15, CN 2-12 intact, moves all 4s on command SKIN: No rash or jaundice noted. Medical Decision & Procedures ER Provider Diagnostic Interpretation: X-ray: Per my interpretation, radiologist review. SINGLE VIEW CHEST FINDINGS: An AP, portable, upright chest radiograph is compared to study dated 05/24/2017 and correlated with chest CT dated 05/07/2017. The examination is degraded by portable technique and patient rotation. The heart is top normal for projection and there is atherosclerotic calcification of the thoracic aorta. Mild emphysema and chronic interstitial thickening are similar to previous. No airspace consolidation or pleural effusion is identified. There is minimal left basilar atelectasis. No pneumothorax is seen. The skeletal structures are osteopenic. The bony thorax is grossly intact. IMPRESSION: Mild emphysematous change with no acute cardiopulmonary abnormality. Electronically signed by: Kj Wagner M.D. 08/23/2017 12:25 PM Laboratory Results 08/23/17 11:42 Red Blood Count 5.87, Mean Corpuscular Volume 86.9, Mean Corpuscular Hemoglobin 29.8, Mean Corpuscular Hemoglobin Concent 34.3, Mean Platelet Volume 10.1, Neutrophils (%) (Auto) 75.3, Lymphocytes (%) (Auto) 15.4, Monocytes (%) (Auto) 7.0, Eosinophils (%) (Auto) 1.4, Basophils (%) (Auto) 0.3, Neutrophils # (Auto) 6.76, Lymphocytes # (Auto) 1.38, Monocytes # (Auto) 0.63, Eosinophils # (Auto) 0.13, Basophils # (Auto) 0.03 08/23/17 11:42 Test 08/23/17 11:42 White Blood Count 8.98 K/uL (4.8-10.8) Red Blood Count 5.87 M/uL (4.7-6.1) Hemoglobin 17.5 g/dL (14.0-18.0) Hematocrit 51.0 % (42-52) Mean Corpuscular Volume 86.9 fL (80-100) Mean Corpuscular Hemoglobin 29.8 pg (25-34) Mean Corpuscular Hemoglobin Concent 34.3 g/dl (32-36) Platelet Count 178 K/uL (130-400) Mean Platelet Volume 10.1 fL (7.4-10.4) Neutrophils (%) (Auto) 75.3 % Lymphocytes (%) (Auto) 15.4 % Monocytes (%) (Auto) 7.0 % Eosinophils (%) (Auto) 1.4 % Basophils (%) (Auto) 0.3 % Neutrophils # (Auto) 6.76 K/uL (1.4-6.5) Lymphocytes # (Auto) 1.38 K/uL (1.2-3.4) Monocytes # (Auto) 0.63 K/uL (0.11-0.59) Eosinophils # (Auto) 0.13 K/uL (0-0.5) Basophils # (Auto) 0.03 K/uL (0-0.2) RDW Standard Deviation 41.3 fL (36.4-46.3) RDW Coefficient of Variation 13.0 % (11.5-14.5) Immature Granulocyte % (Auto) 0.6 % Immature Granulocyte # (Auto) 0.05 K/uL (0.00-0.02) Prothrombin Time 10.4 SECONDS (9.0-12.0) Prothromb Time International Ratio 1.0 (0.9-1.1) Activated Partial Thromboplast Time 31.8 SECONDS (21.0-31.0) Partial Thromboplastin Ratio 1.2 Anion Gap 5.0 mmol/L (3-11) Est Creatinine Clear Calc Drug Dose 71.5 ml/min Estimated GFR () 80.1 Estimated GFR (Non- 69.1 BUN/Creatinine Ratio 16.7 (10-20) Calcium Level 9.6 mg/dl (8.5-10.1) Total Bilirubin 0.4 mg/dl (0.2-1) Direct Bilirubin < 0.1 mg/dl (0-0.2) Aspartate Amino Transf (AST/SGOT) 14 U/L (15-37) Alanine Aminotransferase (ALT/SGPT) 22 U/L (12-78) Alkaline Phosphatase 86 U/L (45-117) Pro-B-Type Natriuretic Peptide 158 pg/ml (0-900) Total Protein 8.0 gm/dl (6.4-8.2) Albumin 3.8 gm/dl (3.4-5.0) Lipase 197 U/L (73-393) Laboratory results reviewed by me Medications Administered Medications (Trade) Dose Ordered Sig/Alan Route Start Time Stop Time Status Last Admin Dose Admin Sodium Chloride 500 ml @ 500 mls/hr Q1H STAT IV 08/23/17 12:19 08/23/17 13:18 DC 08/23/17 12:29 500 MLS/HR Fentanyl Citrate (Fentanyl Inj) 50 mcg NOW ONCE IV 08/23/17 12:30 08/23/17 12:31 DC 08/23/17 12:27 50 MCG Fentanyl Citrate (Fentanyl Inj) 50 mcg NOW STAT IV 08/23/17 12:52 08/23/17 12:56 DC 08/23/17 13:16 50 MCG Atorvastatin Calcium (Lipitor Tab) 40 mg ONE STAT PO 08/23/17 12:52 08/23/17 12:56 DC 08/23/17 13:36 40 MG ECG Indication: chest pain Rate (beats per minute): 64 Rhythm: normal sinus Findings: Q waves (Anterior), T-wave inversion (isolated in AVL), no ectopy, other (Normal axis. ) Comparison ECG Date: May 24, 2017 Change: no significant change ED Course 1209: The patient was evaluated in room C9. A complete history and physical exam was performed. 1219: Ordered Sodium Chloride 500 ml @ 500 mls/hr IV. 1230: Ordered Fentanyl Inj 50 mcg IV. 1252: Ordered Lipitor Tab 40 mg PO, Fentanyl Inj 50 mcg IV. 1256: Ordered Heparin Sodium/Dextrose 1 ea. 1310: Upon reexamination, the patient was resting comfortably. I discussed the test results and treatment plan with him. The patient will be evaluated for further management. Medical Decision The patient is a 67 year old white male with a past medical history of [place] who presents to the ED by EMS with a cc of constant centralized chest pain beginning this morning. Differential diagnosis includes etiologies such as cardiac ischemia, aortic dissection, pulmonary embolism, pneumonia, pneumothorax , musculoskeletal, infections, pericarditis, myocarditis, esophageal rupture, gastrointestinal, as well as others were entertained. Patient was seen and evaluated the bedside. Patient did have a prior history of several PCI's was complaining of chest pain that was pressure-like with radiation. Patient also had some nausea. Patient states pain improved with nitroglycerin and aspirin. Patient did have a prehospital EKG which did show some elevations in V2 and V3. Patient's EKG upon presentation did have Q waves any T-wave inversion laterally however these appear unchanged priors. Concern for possible dynamic changes I spoke with cardiology who agreed that ACS protocol would be appropriate. Patient had already received full dose aspirin prior to arrival. Ordered a statin and heparin. Plavix was also ordered. Patient was admitted to the medicine service. Medication Reconcilliation Current Medication List: was personally reviewed by me Blood Pressure Screening Patient's blood pressure: Normal blood pressure Blood pressure disposition: Did not require urgent referral Consults Time Called: 1230 Consulting Physician: Dr. Caruso -Cardiology Returned Call: [phone] Discussed the patient's case. Dr. Caruso recommends that the patient be brought in for ACS protocol, but that calling a heart alert is not necessary at this moment. Additional Consults: Time Called: 1305 Consulted Physician: Dr. Albarran -MNP Returned Call: [phone] Additional Comments: Discussed the patient's case. The patient will be evaluated for further treatment and disposition. Impression Primary Impression: ACS (acute coronary syndrome) Critical Care I have personally spent greater than 47 minutes of critical care time in the direct management of this patient. This includes bedside care, interpretation of diagnostic studies, and testing, discussion with consultants, patient, and family members, and other required patient management activities. This 47 minutes is in excess of all separately billable procedures. Scribe Attestation The scribe's documentation has been prepared under my direction and personally reviewed by me in its entirety. I confirm that the note above accurately reflects all work, treatment, procedures, and medical decision making performed by me. Departure Information Dispostion Being Evaluated By Hospitalist Referrals Mariah Lewis C.R.N.P (PCP) Patient Instructions My [facility]
[2017-08-23] MEDS ORDERED: NITROGLYCERIN 0.4 MG SL PER TAB CHARGE SL PRN (13:45)
[2017-08-23] MEDS ORDERED: ONDANSETRON INJ 2 MG/ML 2 ML VIAL IV PRN (13:45)
[2017-08-23] MEDS ORDERED: SODIUM CHLORIDE 0.9% 1000ML 1,000 ML IV ONE (13:45)
[2017-08-23] MEDS ORDERED: ACETAMINOPHEN 325 MG TAB PO PRN (13:45)
[2017-08-23] MEDS ORDERED: ALUMINUM/MAGNESIUM/SIMETH (MAALOX MAX) 30 ML UDC PO PRN (13:45)
[2017-08-23] MEDS ORDERED: GABAPENTIN 100 MG CAP PO PRN (13:45)
[2017-08-23] MEDS ORDERED: CLONAZEPAM 0.5 MG TAB PO PRN (13:45)
[2017-08-23] MEDS ORDERED: POLYETHYLENE (MIRALAX) 17 GM PACK PO PRN (13:45)
[2017-08-23] MEDS ORDERED: MAGNESIUM HYDROXIDE SUSP 30 ML UDC PO PRN (13:45)
--- NOTE | 2017-08-23 13:52 | History and Physical ---
History & Physical Date & Time of Service: Aug 23, 2017 at 13:39 Chief Complaint: Chest Pain Primary Care Physician: Mariah Lewis C.R.N.P History of Present Illness Source: patient, family, clinic records, hospital records Patient is a pleasant 67 y/o male, with PMHx of CAD s/p stent placement, AAA, HLD, HTN, chronic back pain, RLS, anxiety, diverticulitis s/p colectomy, and GERD, who presented to the ED because of chest pain x1 day. Yesterday, patient experienced abdominal discomfort and diarrhea. He took Imodium and symptoms seemed to improve. He notes he has a colectomy due to diverticular disease and experiences chronic diarrhea, but yesterday it was worse than usual. This AM he started to experience L sided chest pain radiating to back. He did take a Nitro at home which seemed to improved symptoms- pain went from 7/10 to 5/10. He called EMS because symptoms seem very similar to past presentations of ACS. En route to ED he was given ASA and Nitro, which seemed to further relieve his pain. He notes associated diaphoresis with episode. He has been under a lot of stress lately with his being in and out of hospital. He states he does not feel SOB, but O2 supplement given in ED seems to help him breath easier. Patient denies any fever, chills, lightheadedness, dizziness, vision changes, palpitations, edema, SOB, wheezing, cough, nausea, vomiting, urinary symptoms, melena, numbness/tingling, weakness, muscle/joint pain, anxiety/depression, active bleeding, or new skin discoloration/changes. Past Medical/Surgical History Medical Problems: CAD s/p stent placement AAA HLD HTN chronic back pain RLS diverticulitis s/p colectomy GERD Surgical Problems: History of appendectomy History of colectomy Family History Hypertension Social History Smoking Status: Current Every Day Smoker Smokeless Tobacco Use: No Alcohol Use: none Drug Use: none Marital Status: Housing status: lives with family Occupational Status: retired Immunizations History of Influenza Vaccine: Yes Influenza Vaccine Date: Sep 01, 2013 History of Tetanus Vaccine?: Yes Tetanus Immunization Date: Jul 23, 2004 History of Pneumococcal: Yes Pneumococcal Date: Dec 02, 2012 History of Hepatitis B Vaccine: Yes Hepatitis Immunization Date: Jul 23, 2005 Multi-Drug Resistant Organisms History of MDRO: No Allergies Coded Allergies: Penicillins (Verified Allergy, Severe, SEVERE SWELLING, anaphylaxis, 08/23) Metronidazole (Verified Allergy, Intermediate, swelling, 08/23/17) Home Medications Scheduled Aspirin (Aspirin Ec), 81 MG PO DAILY Clopidogrel (Plavix), 75 MG PO QAM Fluoxetine (Prozac), 10 MG PO HS Lisinopril (Zestril), 1 TAB PO QAM Multiple Vitamins W/ Minerals (Mens 50+ Advanced), 1 CAP PO DAILY Naproxen (Naprosyn), 500 MG PO BID Omeprazole (Prilosec), 40 MG PO DAILY Rosuvastatin Calcium (Crestor), 40 MG PO DAILY Scheduled PRN Clonazepam (Klonopin), 0.5 MG PO HS PRN for RESTLESS LEGS Gabapentin (Neurontin), 100 MG PO TID PRN for PRN Nitroglycerin (Nitrostat), 1 TAB SL UD PRN for CHEST PAIN Physical Exam Vital Signs Date Time Temp Pulse Resp B/P (MAP) Pulse Ox O2 Delivery O2 Flow Rate FiO2 08/23/17 12:30 59 20 142/91 97 Nasal Cannula 2.0 08/23/17 12:10 60 08/23/17 12:07 Nasal Cannula 2.0 08/23/17 12:01 36.7 62 22 107/79 96 Room Air General Appearance: no apparent distress, + pertinent finding (O2 NC ) Head: normocephalic, atraumatic Eyes: PERRL ENT: hearing grossly normal Neck: supple Respiratory/Chest: lungs clear, no respiratory distress, no accessory muscle use Cardiovascular: regular rate, rhythm Abdomen/GI: normal bowel sounds, non tender, soft Back: normal inspection Extremities/Musculoskelatal: no calf tenderness, no pedal edema Neurologic/Psych: alert, normal mood/affect, oriented x 3 Skin: normal color, warm/dry, no rash Diagnostics Laboratory Results Results Past 24 Hours Test 08/23/17 11:42 Range/Units White Blood Count 8.98 4.8-10.8 K/uL Red Blood Count 5.87 4.7-6.1 M/uL Hemoglobin 17.5 14.0-18.0 g/dL Hematocrit 51.0 42-52 % Mean Corpuscular Volume 86.9 80-100 fL Mean Corpuscular Hemoglobin 29.8 25-34 pg Mean Corpuscular Hemoglobin Concent 34.3 32-36 g/dl Platelet Count 178 130-400 K/uL Mean Platelet Volume 10.1 7.4-10.4 fL Neutrophils (%) (Auto) 75.3 % Lymphocytes (%) (Auto) 15.4 % Monocytes (%) (Auto) 7.0 % Eosinophils (%) (Auto) 1.4 % Basophils (%) (Auto) 0.3 % Neutrophils # (Auto) 6.76 1.4-6.5 K/uL Lymphocytes # (Auto) 1.38 1.2-3.4 K/uL Monocytes # (Auto) 0.63 0.11-0.59 K/uL Eosinophils # (Auto) 0.13 0-0.5 K/uL Basophils # (Auto) 0.03 0-0.2 K/uL RDW Standard Deviation 41.3 36.4-46.3 fL RDW Coefficient of Variation 13.0 11.5-14.5 % Immature Granulocyte % (Auto) 0.6 % Immature Granulocyte # (Auto) 0.05 0.00-0.02 K/uL Prothrombin Time 10.4 9.0-12.0 SECONDS Prothromb Time International Ratio 1.0 0.9-1.1 Activated Partial Thromboplast Time 31.8 21.0-31.0 SECONDS Partial Thromboplastin Ratio 1.2 Sodium Level 135 136-145 mmol/L Potassium Level 4.7 3.5-5.1 mmol/L Chloride Level 105 98-107 mmol/L Carbon Dioxide Level 25 21-32 mmol/L Anion Gap 5.0 3-11 mmol/L Blood Urea Nitrogen 18 7-18 mg/dl Creatinine 1.10 0.60-1.40 mg/dl Est Creatinine Clear Calc Drug Dose 71.5 ml/min Estimated GFR () 80.1 Estimated GFR (Non- 69.1 BUN/Creatinine Ratio 16.7 10-20 Random Glucose 104 70-99 mg/dl Calcium Level 9.6 8.5-10.1 mg/dl Total Bilirubin 0.4 0.2-1 mg/dl Direct Bilirubin < 0.1 0-0.2 mg/dl Aspartate Amino Transf (AST/SGOT) 14 15-37 U/L Alanine Aminotransferase (ALT/SGPT) 22 12-78 U/L Alkaline Phosphatase 86 45-117 U/L Troponin I < 0.015 0-0.045 ng/ml Pro-B-Type Natriuretic Peptide 158 0-900 pg/ml Total Protein 8.0 6.4-8.2 gm/dl Albumin 3.8 3.4-5.0 gm/dl Lipase 197 73-393 U/L Diagnostic Radiology SINGLE VIEW CHEST CLINICAL HISTORY: Atypical chest pain. FINDINGS: An AP, portable, upright chest radiograph is compared to study dated 05/24/2017 and correlated with chest CT dated 05/07/2017. The examination is degraded by portable technique and patient rotation. The heart is top normal for projection and there is atherosclerotic calcification of the thoracic aorta. Mild emphysema and chronic interstitial thickening are similar to previous. No airspace consolidation or pleural effusion is identified. There is minimal left basilar atelectasis. No pneumothorax is seen. The skeletal structures are osteopenic. The bony thorax is grossly intact. IMPRESSION: Mild emphysematous change with no acute cardiopulmonary abnormality. Electronically signed by: Kj Wagner M.D. 08/23/2017 12:25 PM Dictated Date/Time: 08/23/2017 12:24 PM The status of this report is Signed. Draft = Not yet reviewed or approved by Radiologist. Signed = Reviewed and approved by Radiologist. EKG PIETRO JUAN R ID:[id number] 23-AUG-2017 12:01:36 [facility] Normal sinus rhythm Left ventricular hypertrophy with repolarization abnormality Cannot rule out Septal infarct (cited on or before 07-MAY-2017) Abnormal ECG When compared with ECG of 24-MAY-2017 17:44, No significant change was found 25mm/s 10mm/mV 150Hz 8.0 SP2 12SL 241 BARAK: 10 Referred by: Unconfirmed Vent. rate 64 BPM VT interval 178 ms QRS duration 106 ms QT/QTc 428/441 ms P-R-T axes 47 -20 82 1950 (67 yr) Male 97in 1lb Room: Loc:15 Crusher Supervisor:MARZENA RIBERA Test ind: Impression Assessment and Plan Patient is a pleasant 67 y/o male, with PMHx of CAD s/p stent placement, AAA, HLD, HTN, chronic back pain, RLS, anxiety, diverticulitis s/p colectomy, and GERD, who presented to the ED because of chest pain x1 day. ACS r/o: - Admit to tele for cardiac monitoring - O2 protocol - Trend cardiac enzymes- initial enzymes negative - EKG w/out significant changes; follow EKG QAM and PRN w/ CP - Nitro SL PRN for chest pain and IV Morphine PRN for chest pain - Continue ASA 81 mg daily - NPO after midnight incase further intervention/studies needed - Cardiology consulted, appreciate recommendations CAD s/p stent placement, AAA, HLD- follows w/ Dr. Gallardo: Continue Plavix 75 mg daily, Crestor 40 mg daily HTN: Lisinopril 2.5 mg QAM Chronic back pain, RLS: Continue Neurontin 100 mg TID Anxiety: Continue Klonopin 0.5 mg HS PRN, Prozac 10 mg HS GERD: Protonix 40 mg daily DVT prophylaxis: Heparin SQ TID Code Status: LEVEL I, FULL Dispo: From home, lives w/ - CM consulted Attending Addendum: I have physically seen and examined this patient, have directed the physician assistants medical activities, and agree with the H&P as noted above with the following exceptions as noted. The patient is awake, alert and oriented 3, well-developed and well-nourished , normocephalic and atraumatic, lying in bed and in no acute distress. HEENT--PERRL, EOMI, mucous membranes and oropharynx dry. Neck--supple, no JVD or bruits, thyroid normal, trachea midline, no adenopathy. Heart--normal S1 and S2, no extra beats, no murmurs, rubs or gallops. Lungs--clear bilaterally with good air movement, no respiratory distress, no accessory muscle use. Abdomen--normal bowel sounds and soft, nontender and nondistended, no hernias or masses, no organomegaly. Extremities--no cyanosis, clubbing or edema. There are good distal pulses b/l. Dermatologic--normal skin turgor, normal color, warm and dry, no abnormal lymph nodes, no rash. Neurologic--cranial nerves II through XII grossly intact. Rheumatologic--normal range of motion, nontender, muscles and joints. Psychiatric--normal affect. Assessment and Plan: Chest pain/history of CAD, hypertension-- The patient will be admitted to telemetry for serial cardiac enzymes, cardiac rhythm monitoring and a 2-D echocardiogram with Dopplers. Aspirin 81 mg daily, clopidogrel 75 mg by mouth daily, and lisinopril 2.5 mg by mouth daily. Chronic back pain/neuropathy-- Continue gabapentin 100 mg by mouth 3 times a day. His Hyperlipidemia-- Continue Crestor 40 mg by mouth daily. Anxiety-- Prozac 10 mg by mouth at bedtime, Klonopin 0.5 mg by mouth at bedtime when necessary. GERD-- Continue Protonix 40 mg by mouth daily. Level of Care Telemetry Advanced Directives Existing Advance Directive: No Existing Living Will: No Existing Power of Yarn Handler: No Resuscitation Status FULL RESUSCITATION VTE Prophylaxis VTE Risk Assessment Done? Y/N: Yes Risk Level: Moderate Given or contraindicated: Unfractionated heparin SQ, T.E.D. Stockings, SCD's Social Service Consult None Apply
[2017-08-23] MEDS: MoRPHine SULFATE 2 MG/ML CARP IV PRN ×3 (14:30→22:24)
[2017-08-23] MEDS ORDERED: NITROGLYCERIN OINT 2% 1GM PACKET EXT ONE (14:45)
[2017-08-23] MEDS ORDERED: NITROGLYCERIN OINT 2% 1GM PACKET ONE (14:47)
[2017-08-23 15:55] LABS: INFLUENZA A PCR Neg for Influ A (NEG); INFLUENZA B PCR Neg for Influ B (NEG)
[2017-08-23 16:01] VITALS: BP 144/77; PULSE 55; TEMP 36.4; O2SAT 97; Ht 182.9 cm; Wt 89.5 kg
[2017-08-23] MEDS ORDERED: IV FLUIDS COMPLETED PRN (16:30)
[2017-08-23] MEDS ORDERED: NURSING VERBAL MED ORDER ONE (16:30)
[2017-08-23] MEDS: KETOROLAC TROMETHAMINE 15 MG/ML VIAL IV. PRN ×2 (17:26→23:54)
--- NOTE | 2017-08-23 18:20 | Cardiology Consultation ---
Cardiology Consultation Date of Service Aug 23, 2017. Cardiology Consultation The patient was seen and examined by me this evening. The full consult is to be dictated on the dictation system. The dictation system is currently not functional. Patient has a longstanding history of coronary artery disease. Inferolateral myocardial infarction November 2007. Severe stenosis in codominant left circumflex. Subsequent deployment of 3.5 x 15 mm and 3.5 x 9 mm stents in distal left circumflex. Subsequent elective intervention to 90% mid RCA stenosis with 3 x 16 mm Taxus drug-eluting stent. Longstanding history of abnormal electrocardiogram. Poor R-wave progression V1-V3. Chronic mild ST segment elevations leads V1-V3. Admission to [facility] December 09, 2016 with left- sided chest discomfort. Cardiac enzymes negative for myocardial injury. Electrocardiogram without any new changes. Echocardiogram revealed hyperdynamic LV systolic function. He subsequent underwent a Lexiscan pharmacologic stress test which revealed evidence of ischemia in the left circumflex distribution. Cardiac catheterization December 14, 2016 revealed 10% proximal LAD stenosis. Mid left circumflex with 75% stenosis. Diffuse in stent restenosis 10-20%. RCA with 10-20% in stent restenosis. Subsequent deployment of 4 x 15 mm resolute drug-eluting stent in mid left circumflex. Post dilated with 4.5 mm noncompliant balloon. He also underwent deployment of 2.5 x 18 mm drug-eluting stent in the left posterior lateral artery. No residual stenosis at either site. Repeat Lexiscan pharmacologic stress test May 2017 for recurrent chest discomfort. No evidence of ischemia. History of small infrarenal aortic aneurysm. History of iliac artery aneurysms. History of such [id number] carotid artery disease. History of anxiety, aortic regurgitation, COPD, dyslipidemia, hypertension, and GE reflux disease. Beta-kg therapy has been contraindicated because of baseline bradycardia. The patient states that recently he has been doing well from a cardiac standpoint. No exertionally precipitated chest pain. This morning at rest he developed a pressure to sharp left-sided pain which radiates around his left side of his chest. No associated symptoms. This started approximately 6:00 a.m.. It is been constant. The intensity does vary. No definite increase in intensity with exertion. Some relief with sublingual nitroglycerin. At home he had weakness in his legs and fell to the floor. An ambulance was subsequently called. Electrocardiogram performed by EMS revealed sinus rhythm at a rate of 60 beats per minute. Poor R-wave progression V1-V3. ST segment elevations V1-V3. Repeat electrocardiogram performed in the emergency department revealed sinus rhythm. Poor R progression V1-V3. ST elevation V1 to V3. Compared to electrocardiograms since at least 2013 no significant change. He has had 2 troponin I thus far. Both negative for myocardial injury. The patient was seen around 5:00 p.m.. This is when I was notified of the consult. He appeared to be in no distress. He was still complaining of the chest discomfort. Exam revealed chest wall tenderness. This worsens his baseline pain. His lung exam was normal. Cardiac exam revealed a regular rate and rhythm. No S3 or S4. No rub. No murmur heard. Assessment: At least 11 hour constant chest discomfort. Chest wall tenderness on exam which worsens his baseline pain. Cardiac enzymes negative for myocardial injury. Electrocardiogram without any new ST-T or T-wave changes compared to prior electrocardiogram since at least 2013. The patient recently had good exercise tolerance. Do not suspect that he has had any significant restenosis in his stents. Certainly do not suspect any late stent thrombosis. If this occurred he would have severe chest discomfort. He would have ST segment changes in the inferior or lateral leads. His cardiac enzymes would be elevated. Thus, suspect his chest discomfort is musculoskeletal in origin. This is corroborated by the marked chest wall tenderness on exam this evening. Recommendations: 1. Observation overnight. 2. Further cardiac enzymes overnight and tomorrow morning. 3. Nonsteroidal anti-inflammatory drug. He has been ordered Toradol by the hospitalist service. 4. Certainly if his cardiac enzymes become elevated would recommend repeat cardiac catheterization. If his chest discomfort resolved with nonsteroidal anti-inflammatory drugs would likely not perform any further cardiac testing at this time. Thank you for asking me is his patient cardiology consultation.
[2017-08-23] MEDS: NITROGLYCERIN OINT 2% 1GM PACKET EXT SCH (18:45)
[2017-08-23 19:02] VITALS: BP 100/56; PULSE 60; TEMP 36.6; O2SAT 95
[2017-08-23] MEDS ORDERED: FLUOXETINE HCL 10 MG CAP PO SCH (21:00)
[2017-08-23] MEDS: HEPARIN SOD 5000 UNIT/0.5 ML CARP SQ SCH (21:48)
[2017-08-24 00:27] VITALS: BP 109/62; PULSE 55; TEMP 36.6; O2SAT 97
[2017-08-24] MEDS: MoRPHine SULFATE 2 MG/ML CARP IV PRN ×5 (00:41→10:31)
[2017-08-24 04:23] VITALS: BP 119/71; PULSE 58; TEMP 36.5; O2SAT 95
[2017-08-24] MEDS: NITROGLYCERIN OINT 2% 1GM PACKET EXT SCH ×3 (04:57→12:00)
[2017-08-24] MEDS: HEPARIN SOD 5000 UNIT/0.5 ML CARP SQ SCH ×2 (04:57→14:00)
[2017-08-24 05:10] LABS: PARTIAL THROMBOPLASTIN RATIO 1.2
[2017-08-24 05:22] LABS: BLOOD UREA NITROGEN 25 mg/dl (7-18); BUN/CREATININE RATIO 20.6 (10-20); CALCIUM 8.3 mg/dl (8.5-10.1); CARBON DIOXIDE 26 mmol/L (21-32); CHLORIDE 109 mmol/L (98-107); GLUCOSE 89 mg/dl (70-99); POTASSIUM 5.3 mmol/L (3.5-5.1); SODIUM 139 mmol/L (136-145)
[2017-08-24 06:53] VITALS: BP_SYST 106; BP_SYST 145; BP_DIAS 66; BP_DIAS 72; PULSE 67; TEMP 36.6; TEMP 37.1; O2SAT 92; O2SAT 94
[2017-08-24] MEDS ORDERED: ASPIRIN 81 MG ECTAB PO SCH (09:00)
[2017-08-24] MEDS ORDERED: ROSUVASTATIN CALCIUM 20 MG TAB PO SCH (09:00)
[2017-08-24] MEDS ORDERED: LISINOPRIL 2.5 MG TAB PO SCH (09:00)
[2017-08-24] MEDS ORDERED: PANTOprazole SOD 40 MG TAB PO SCH (09:00)
[2017-08-24] MEDS ORDERED: CLOPIDOGREL BISULFATE 75 MG TAB PO SCH (09:00)
--- NOTE | 2017-08-24 10:06 | Cardiology Consultation ---
Cardiology Consultation Date of Service Aug 24, 2017. Cardiology Consultation This is the full consultation on this patient. The patient was seen and examined by me on the evening of August 23, 2017. Patient has a longstanding history of coronary artery disease. Inferolateral myocardial infarction November 2007. Severe stenosis in codominant left circumflex. Subsequent deployment of 3.5 x 15 mm and 3.5 x 9 mm stents in distal left circumflex. Subsequent elective intervention to 90% mid RCA stenosis with 3 x 16 mm Taxus drug-eluting stent. Longstanding history of abnormal electrocardiogram. Poor R-wave progression V1-V3. Chronic mild ST segment elevations leads V1-V3. Admission to [facility] December 09, 2016 with left-sided chest discomfort. Cardiac enzymes negative for myocardial injury. Electrocardiogram without any new changes. Echocardiogram revealed hyperdynamic LV systolic function. No segmental wall motion abnormalities noted. He subsequently underwent a Lexiscan pharmacologic stress test which revealed evidence of ischemia in the left circumflex distribution. Cardiac catheterization December 14, 2016 revealed 10% proximal LAD stenosis. Mid left circumflex with 75% stenosis. Diffuse in stent restenosis 10-20%. RCA with 10- 20% in stent restenosis. Subsequent deployment of 4 x 15 mm resolute drug- eluting stent in mid left circumflex. Post dilated with 4.5 mm noncompliant balloon. He also underwent deployment of 2.5 x 18 mm drug-eluting stent in the left posterior lateral artery. No residual stenosis at either site. Repeat Lexiscan pharmacologic stress test May 2017 for recurrent chest discomfort. No evidence of ischemia. History of small infrarenal aortic aneurysm ( 3.8 cm) History of iliac artery aneurysms ( 2.4 cm). History of such [id number] carotid artery disease. Most recent carotid ultrasound November 2016 without any hemodynamically significant internal carotid artery stenoses. History of anxiety, aortic regurgitation, COPD, dyslipidemia, hypertension, and GE reflux disease. Beta- kg therapy has been contraindicated because of baseline bradycardia. The patient states that recently he has been doing well from a cardiac standpoint. No exertionally precipitated chest pain. On the morning of August 23 at rest he developed a pressure to sharp left-sided pain which radiates around his left side of his chest. No associated symptoms. This started approximately 6:00 a.m.. It was constant. The intensity varied throughout the day. No definite increase in intensity with exertion. Some relief with sublingual nitroglycerin. At home he had weakness in his legs and fell to the floor. No loss of consciousness. He did have sensation of lightheadedness. An ambulance was subsequently called. Electrocardiogram performed by EMS revealed sinus rhythm at a rate of 60 beats per minute. Poor R -wave progression V1-V3. ST segment elevations V1-V3. Repeat electrocardiogram performed in the emergency department revealed sinus rhythm. Poor R progression V1-V3. ST elevation V1 to V3. The hospital performed electrocardiograms were compared by me to electrocardiograms since at least 2013 and there was no significant change. He had 2 troponin I performed by the time of this consultation. Both negative for myocardial injury. The patient is seen in his room in the telemetry unit. He is still complaining of left-sided pain. However, he appears to be in no distress. He was comfortably eating his dinner when I arrived in the room. He denies any associated nausea, diaphoresis, lightheadedness, or weakness. The discomfort does not increase with exertion in his room. No increased intensity with deep inspiration. The patient had recently sustained a knee injury. This required arthroscopic surgery last week. Since the surgery he has had a marked decrease in his right knee pain. He states he recently was able to perform prolonged strenuous activities without any anginal-type complaints. His exercise tolerance and stamina were stable. Denies any recent orthopnea or PND. Normally no palpitations, lightheadedness, or syncope. No lower extremity edema. He denies any cerebrovascular or peripheral vascular complaints. No bleeding complaints. No pulmonary complaints. Good appetite. Chronic urinary urgency in hesitancy. He continues to be under increased emotional stress secondary to health issues with his . She is currently hospitalized at the [facility]. Past medical history 1. Coronary artery disease as above. 2. Peripheral vascular disease. 3. Carotid artery disease. 4. Dyslipidemia. 5. Hypertension 6. GE reflux disease 7. History of aortic and mitral regurgitation. 8. Restless leg syndrome. 9 .BPH. 10. Anxiety. 11. History of nephrolithiasis. 12. Diverticulosis. Past surgical history: 1. Status post colectomy. 2. Status post anal fistulectomy. 3. Status post lithotripsy treatment for nephrolithiasis. Family history: No family history of premature coronary artery disease. Social history: The patient is . Former cigarette smoker. He does not drink alcohol. Current medications: Aspirin 81 mg daily, clopidogrel 75 mg daily, lisinopril 2.5 mg daily, rosuvastatin 40 mg daily, pantoprazole 40 mg daily, subcu heparin 5000 units q.8 hours, fluoxetine 10 mg q.h.s., nitroglycerin ointment 1 inch q.6 hours, Toradol 15 mg IV Q 6 hours p.r.n. pain, and several other p.r.n. medications. Allergies adverse drug reactions: Metronidazole, penicillins. Review of systems 1. As above. 2. Mild pain in right knee. No symptoms of infection and right knee in regards to erythema, increased warmth, or significant swelling. He has very minimal swelling in the outer aspect of the right knee. No fevers or chills. 3. No skin rash complaints. 4. No current HEENT complaints. Exam: The patient was sitting on the side of his bed. No distress. He appeared comfortable eating his dinner. Oral temperature 36.4, pulse 55, blood pressure 144/77, pulse oximetry 97% room air. Neck: No jugular venous distention. Carotids 2/2 bilaterally. Normal upstroke. No bruits. Head: Normal. Eyes: Pupils equal and round. Anicteric. Conjunctiva normal. No xanthelasma. Lungs: Clear. No rales or wheezes. Normal respiratory effort. Heart: PMI normal. No lifts or heaves. Regular rate and rhythm. S1-S2 normal. 1/6 systolic murmur left sternal border. No diastolic murmur or rub. Abdomen: Soft. Nontender. No palpable masses organomegaly. Extremities: No pretibial edema. No erythema or significant swelling of right knee. No evidence of infection at surgical sites. No cyanosis or clubbing. Pulses: Distal pulses all extremities strongly palpable. Neurologic: Alert and orient x3. Motor grossly intact. Psychiatric : Affect is normal. Data: Metabolic profile sodium 135, potassium 4.7, chloride 105, carbon dioxide 25, BUN 18, creatinine 1.10, random glucose 104. Pro BNP 158. Lipase 197. AST 14. ALT 22. Initial troponin I is on to determine a shins less than 0.015. INR 1.0, WBC 8.98, hemoglobin 17.5, hematocrit 51, platelet count 178. Chest x-ray without heart failure. Changes consistent with COPD. Chest x-ray reviewed by me. Electrocardiograms reviewed by me. As documented above. Assessment: 1. Musculoskeletal chest pain. He has marked tenderness on palpation of his chest. This replicates the pain of which she complains. Prior to this morning he had had no recent episodes of exertionally precipitated chest pain. His electrocardiogram does not reveal any new changes compared electrocardiograms performed over the past few years. Despite the chest pain having been present since 6:00 a.m. his initial 2 cardiac enzymes are negative for myocardial injury. 2. Coronary artery disease. As stated above electrocardiogram without any new ST-T wave abnormalities. Cardiac enzymes thus far negative for evidence of myocardial injury. 3. COPD. No evidence of bronchospasm on exam today. 4. Cerebrovascular disease and peripheral vascular disease. No current signs or symptoms of any significant vascular disease. 5. Mild systolic hypertension. 6. Dyslipidemia. He is on a maximum rosuvastatin dose consistent with current guidelines. 7. Beta-kg therapy contraindicated by resting bradycardia. 8. No evidence of congestive heart failure on exam. Recommendations 1. Repeat electrocardiogram in a.m.. 2. Continue checking cardiac enzymes. If they remain negative for myocardial injury would discharge patient home. 3. Nonsteroidal anti-inflammatory drugs for his chest discomfort. 4. If his electrocardiogram revealed any new ischemic type changes or if his cardiac enzymes became elevated would then recommend repeat cardiac catheterization.
[2017-08-24 11:12] VITALS: BP 109/63; PULSE 57; TEMP 36.6; O2SAT 97
[2017-08-24] MEDS ORDERED: NAPR-1169 PO (13:35)
--- NOTE | 2017-08-24 13:54 | Discharge Instructions ---
Discharge Instructions Date of Service Aug 24, 2017. Admission Reason for Admission: Chest Pain Discharge Discharge Diagnosis / Problem: Musculoskeletal pain Discharge Goals Goal(s): Decrease discomfort, Increase independence Activity Recommendations Activity Limitations: as noted below Lifting Limitations: gradually increase as tolerated Exercise/Sports Limitations: as tolerated May Resume Sexual Activity: when tolerated Shower/Bathe: no limitations . Instructions / Follow-Up Instructions / Follow-Up You were admitted for chest pain and weakness. After extensive work up including electrocardiogram, cardiac enzymes in your blood, physical exam, lab work and cardiology consultation, your pain is most likely related to musculoskeletal pain, perhaps induced by increased work or activity, or even stress. We recommend you continue taking all your home medications, listed below. We have also added one more to help with your musculoskeletal pain you are feeling, as discussed. 500 mg of Naprosyn, to be taken twice a day. Please continue your regular follow up appointments with your glass bender. Thank you for allowing us to participate in your care. Reported Home Medications Medications Dose Route/Sig Max Daily Dose Days Date Category Naprosyn (Naproxen) 500 Mg Tab 500 Mg PO BID MDD 1500mg 15 08/24/17 Rx Prilosec (Omeprazole) 40 Mg Cap 40 Mg PO DAILY 08/23/17 Reported Nitrostat (Nitroglycerin) 0.4 Mg Tab 1 Tab SL UD PRN 08/23/17 Reported Zestril (Lisinopril) 2.5 Mg Tab 1 Tab PO QAM 08/23/17 Reported Plavix (Clopidogrel Bisulfate) 75 Mg Tab 75 Mg PO QAM 08/23/17 Reported Crestor (Rosuvastatin Calcium) 40 Mg Tab 40 Mg PO DAILY 05/24/17 Reported Neurontin (Gabapentin) 100 Mg Cap 100 Mg PO TID PRN 05/03/17 Reported Prozac (Fluoxetine HCl) 10 Mg Cap 10 Mg PO HS 11/21/16 Reported Klonopin (Clonazepam) 0.5 Mg Tab 0.5 Mg PO HS PRN 10/10/16 Reported Aspirin Ec (Aspirin) 81 Mg Tab 81 Mg PO DAILY 10/01/14 Reported Mens 50+ Advanced (Multiple Vitamins W/ Minerals) 1 Cap Cap 1 Cap PO DAILY 02/18/14 Reported Current Hospital Diet Patient's current hospital diet: [facility] Diet (Heart Healthy) Discharge Diet Recommended Diet: AHA Diet (Heart Healthy) Fluid Restriction: None Pending Studies Studies pending at discharge: no Medical Emergencies . Who to Call and When: Medical Emergencies: If at any time you feel your situation is an emergency, please call 911 immediately. . Non-Emergent Contact Non-Emergency issues call your: Primary Care Provider . . "Provider Documentation" section prepared by Malia Gold. . VTE Core Measure Inpt VTE Proph given/why not?: Unfractionated heparin NADIA, Corky Burk, SCD 's Resident Tracking Resident Involvement: Resident Care Provided Care Provided: Adult Hospital Medicine
[2017-08-24 14:20] VITALS: BP 109/63; PULSE 57; TEMP 36.6; O2SAT 97
--- NOTE | 2017-08-24 17:49 | Discharge Summary ---
Discharge Summary Date of Service Aug 24, 2017. Discharge Summary Admission Date: Aug 23, 2017 at 13:38 Discharge Date: Aug 24, 2017 Discharge Disposition: Home Principal Diagnosis: Atypical chest pain Immunizations: Have You Had Influenza Vaccine: Yes Influenza Vaccine Date: Sep 01, 2013 History of Tetanus Vaccine?: Yes Tetanus Immunization Date: Jul 23, 2004 History of Pneumococcal: Yes Pneumococcal Date: Dec 02, 2012 History of Hepatitis B Vaccine: Yes Hepatitis Immunization Date: Jul 23, 2005 Medication Reconciliation New Medications: Naproxen (Naprosyn) 500 Mg Tab 500 MG PO BID MDD 1500mg for 15 Days, #30 TAB Continued Medications: Aspirin (Aspirin Ec) 81 Mg Tab 81 MG PO DAILY Clonazepam (Klonopin) 0.5 Mg Tab 0.5 MG PO HS PRN for RESTLESS LEGS, TAB Clopidogrel (Plavix) 75 Mg Tab 75 MG PO QAM, TAB Fluoxetine (Prozac) 10 Mg Cap 10 MG PO HS, CAP Gabapentin (Neurontin) 100 Mg Cap 100 MG PO TID PRN for PRN, CAP Lisinopril (Zestril) 2.5 Mg Tab 1 TAB PO QAM Multiple Vitamins W/ Minerals (Mens 50+ Advanced) 1 Cap Cap 1 CAP PO DAILY Nitroglycerin (Nitrostat) 0.4 Mg Tab 1 TAB SL UD PRN for CHEST PAIN, TAB Omeprazole (Prilosec) 40 Mg Cap 40 MG PO DAILY, CAP Rosuvastatin Calcium (Crestor) 40 Mg Tab 40 MG PO DAILY, TAB Discharge Exam Review of Systems: Constitutional: No fever, No chills, No sweats Respiratory: No cough, No sputum, No wheezing Cardiovascular: + chest pain (left sided, non radiating, sharp, no identified triggers), No orthopnea, No edema, No palpitations Abdomen: No pain, No nausea, No vomiting Musculoskeletal: + joint pain (residual pain from TKR RT.) Physical Exam: General Appearance: WD/WN, no apparent distress Eyes: normal inspection, EOMI Neck: no carotid bruits Respiratory/Chest: lungs clear, normal breath sounds, no respiratory distress, no accessory muscle use Cardiovascular: regular rate, rhythm, no edema, no gallop, no JVD, no murmur Abdomen / GI: normal bowel sounds, non tender, soft Extremities: normal inspection, + pertinent finding (2 small incision points with remaining stitches present on RT knee, non erythematous) Neurologic/Psychiatric: alert, normal mood/affect Skin: normal color, warm/dry, no rash Hospital Course Pt was admitted for chest pain in the setting of PMH sig for CAD, NC, h/o stent placement, longstanding ECG abnormalities (poor R wave progression V1-V3, chronic mild ST segment elevations leads V1-V3) and infrarenal aortic aneurysm ( 3.8cm), h/o iliac a. aneurysms (2.4cm) as well as h/o anxiety, HLD, HTN and GERD. Was admitted last in November for chest discomfort, and cardiology performed pharmacologic stress test which was + for ischemia in the left circumflex distribution. Subsequent deployment of drug-eluting stent in mid left circumflex and drug-eluting stent in the left posterior lateral artery. Later in May 2017, repeat Lexiscan pharmacologic stress test for recurrent chest discomfort with no evidence of ischemia. Beta-kg therapy has been contraindicated because of baseline bradycardia. The patient states that recently he has been doing well from a cardiac standpoint. No exertionally precipitated chest pain. On the morning of August 23 at rest he developed a pressure to sharp left-sided pain which radiates around his left side of his chest. No associated symptoms. This started approximately 6:00 a.m.. It was constant. The intensity varied throughout the day. No definite increase in intensity with exertion. Some relief with sublingual nitroglycerin. At home he had weakness in his legs and fell to the floor. No loss of consciousness. He did have sensation of lightheadedness. An ambulance was subsequently called. Electrocardiogram performed by EMS revealed sinus rhythm at a rate of 60 beats per minute. Poor R -wave progression V1-V3. ST segment elevations V1-V3. Repeat electrocardiogram performed in the emergency department revealed sinus rhythm. Poor R progression V1-V3. ST elevation V1 to V3. The hospital performed electrocardiograms were compared by me to electrocardiograms since at least 2013 and there was no significant change. He had 2 troponin I performed by the time of this consultation. Both negative for myocardial injury. Atypical chest pain as above, likely 2/2 to recent extenuating stressors (pt explained at length ongoing health complications of his 's) as well as rehabilitating from a recent TKR and "doing more than he should" lately. Pain was reproducible on exam. Discussed at length need for pt to apply heat to area, stretching, advancing activity as tolerated, and also sent with script for Naprosyn 500 BID x2 weeks for anti-inflammatory effects. HTN continued lisinopril Back pain continued neurontin Anxiety continued klonopin, prozac GERD protonix Total Time Spent: Greater than 30 minutes This includes examination of the patient, discharge planning, medication reconciliation, and communication with other providers. Discharge Instructions Please refer to the electronic Patient Visit Report (Discharge Instructions) for additional information. Additional Copies To Mariah Lewis C.R.N.P Resident Tracking Resident Involvement: Resident Care Provided Care Provided: Adult [facility] Medicine
== END 2017-08-24 14:36 | disposition home or self-care (01) ==
LOC: EDBD 11:53 → C.EDC 11:54 → C.2T 13:38 → ENRESERV 15:27
PROVIDERS: ADMIT Hospitalist; ATTEND Hospitalist
DX: R07.89 Other chest pain (principal); I25.10 Atherosclerotic heart disease of native coronary artery without angina pectoris; I25.2 Old myocardial infarction; I10 Essential (primary) hypertension; E78.5 Hyperlipidemia, unspecified; I71.4 Abdominal aortic aneurysm, without rupture; K21.9 Gastro-esophageal reflux disease without esophagitis; G89.29 Other chronic pain; M54.9 Dorsalgia, unspecified; G25.81 Restless legs syndrome; F41.9 Anxiety disorder, unspecified; F17.200 Nicotine dependence, unspecified, uncomplicated; Z93.3 Colostomy status; Z95.5 Presence of coronary angioplasty implant and graft; Z79.82 Long term (current) use of aspirin; Z79.899 Other long term (current) drug therapy